=== PATIENT | female | born 1945 | race Caucasian/White ===

== ENCOUNTER 2016-03-29 19:28 | Observation (INO) | payer MEDICARE, OTHER ==
[2016-03-29] VITALS (7 sets, daily range): BP systolic 121–222; BP diastolic 66–121; PULSE 54–85; RESP 16–18; TEMP 98.8; O2SAT 97–100
[~2016-03-29] VITALS: Ht 167.6 cm; Wt 78.9 kg
[~2016-03-29 19:28] MED LIST: ASPI81 PO; CARD120T4 PO; CLOP75 PO; DIOV80TA4 PO; HYDR-2768 PO; PREM0.622 PO; PREV30CA36 PO; SERT50 PO; ZOCO40TA PO
[2016-03-29] MEDS ORDERED: ASPI1TAB69 PO (19:57)
[2016-03-29] MEDS ORDERED: CART300C PO (19:57)
[2016-03-29] MEDS ORDERED: ZOLO100T PO (19:58)
[2016-03-29] MEDS ORDERED: ESTR.625 PO (19:58)
[2016-03-29] MEDS ORDERED: ZOCO40TA PO (19:58)
[2016-03-29] MEDS ORDERED: TELM1TAB2 PO (19:58)
[2016-03-29] MEDS ORDERED: ALUMINUM/MAGNESIUM/SIMETH 30 ML CUP PO ONE (20:15)
[2016-03-29] MEDS ORDERED: cloNIDine HCL 0.2 MG TAB PO ONE (20:15)
[2016-03-29] MEDS ORDERED: LIDOCAINE VISCOUS 2% SOLN 15 ML UDC PO ONE (20:15)
[2016-03-29] MEDS ORDERED: FAMOTIDINE 20 MG/2 ML VIAL IV PUSH ONE (20:15)
[2016-03-29 20:43] LABS: AUTOMATED NEUTROPHIL # 4.5 TH/MM3 (1.8-7.7); BASOPHIL # 0.1 TH/MM3 (0-0.2); BASOPHIL % 1.6 % (0.0-2.0); EOSINOPHIL # 0.2 TH/MM3 (0-0.4); EOSINOPHIL % 2.3 % (0.0-4.0); HEMATOCRIT 39.5 % (35.0-46.0); HEMO FLAGS DIFF FINAL; LYMPH % 25.8 % (9.0-44.0); LYMPHOCYTE # 1.8 TH/MM3 (1.0-4.8); MEAN CELL VOLUME 82.1 FL (80.0-100.0); MEAN CORPUSCULAR HEMOGLOBIN 26.5 PG (27.0-34.0); MEAN CORPUSCULAR HGB CONC 32.3 % (32.0-36.0); MONO % 6.4 % (0.0-8.0); NEUT % 63.9 % (16.0-70.0); PLATELET COUNT 268 TH/MM3 (150-450); RED BLOOD COUNT 4.82 MIL/MM3 (4.00-5.30); RED CELL DISTRIBUTION WIDTH 14.7 % (11.6-17.2); WHITE BLOOD COUNT 7.1 TH/MM3 (4.0-11.0)
[2016-03-29 20:44] LABS: CHLORIDE 105 MEQ/L (98-107); POTASSIUM 4.6 MEQ/L (3.5-5.1); SODIUM (NA) 141 MEQ/L (136-145)
[2016-03-29 20:48] LABS: ANION GAP 5 MEQ/L (5-15); BLOOD UREA NITROGEN 15 MG/DL (7-18)
[2016-03-29 20:51] LABS: ALT (GPT) 20 U/L (10-53); AST (GOT) 42 U/L (15-37); GLOMERULAR FILTRATION RATE 40 ML/MIN (>89)
[2016-03-29 20:52] LABS: TOTAL BILIRUBIN ADULT 0.5 MG/DL (0.2-1.0)
[2016-03-29 20:53] LABS: ALKALINE PHOSPHATASE 96 U/L (45-117)
[2016-03-29] MEDS ORDERED: TEMAZEPAM 15 MG CAP PO PRN (21:00)
[2016-03-29] MEDS ORDERED: ASPIRIN 81 MG CHEW TAB CHEW ONE (21:45)
--- NOTE | 2016-03-29 21:56 | PD ---
HPI Chief Complaint: Hypertension Time Seen by Provider: 19:56 Travel History International Travel<30 days: No Contact w/Intl Traveler<30days: No Traveled to known affect area: No History of Present Illness HPI Patient is a 70 year old female who comes in complaining of epigastric pain and high blood pressure. She says she has been feeling run down today, and has had a nagging feeling in her epigastric area for most of the day. She says it has, in gone all day. She denies any shortness of breath. She says she missed her blood pressure medication this morning, but she took it at 6:30 PM. She has been taking it throughout the day and noticed it has been very elevated. She was concerned and worried about having a stroke so she came in. She denies fever or chills. No nausea, but no vomiting. PFSH Past Medical History Arthritis: Yes (LEFT HIP) Depression: Yes Cardiac Catheterization: Yes (W/ stent placement) High Cholesterol: Yes Coronary Artery Disease: Yes Hypertension: Yes Thyroid Disease: Yes ("THEY'RE WATCHING IT" STATED 03/29/16) Tetanus Vaccination: Unknown Influenza Vaccination: Yes ?: Not Menopausal: Yes : 3 Para: 3 Tubal Ligation: Yes Past Surgical History Coronary Stent: Yes (X1) Hysterectomy: Yes Other Surgery: Yes (LEFT CAROTID ENDARDARECTOMY: 2015) Family History Family Myocardial Infarction: Yes (4 BROTHERS: ) Social History Alcohol Use: No Tobacco Use: No (QUIT AGE 50) Substance Use: No Allergies-Medications (Allergen,Severity, Reaction): Coded Allergies: Sulfa (Verified Allergy, Severe, 03/29/16) Reported Meds & Prescriptions Reported Meds & Active Scripts Active Reported Telmisartan 80 Mg Tab 80 Mg PO DAILY Zocor (Simvastatin) 40 Mg Tab 40 Mg PO DAILY Zoloft (Sertraline HCl) 100 Mg Tab 100 Mg PO DAILY Premarin (Estrogens Conjugated) 0.625 Mg Tab 0.625 Mg PO DAILY Cartia Xt (Diltiazem ER 24 HR) 300 Mg Caper 300 Mg PO DAILY Aspirin 81 Mg Tabdr 81 Mg PO DAILY Review of Systems Except as stated in HPI: all other systems reviewed are Neg General / Constitutional: No: Fever, Chills Eyes: No: Blurred Vision HENT: No: Headaches, Lightheadedness Cardiovascular: Positive: Chest Pain or Discomfort Respiratory: No: Shortness of Breath Gastrointestinal: Positive: Nausea, Abdominal Pain, No: Vomiting Musculoskeletal: No: Edema, Pain Skin: No Rash, No Change in Pigmentation Neurologic: No: Weakness, Dizziness Physical Exam Narrative GENERAL: Awake and alert, in no acute distress. SKIN: Warm and dry. HEAD: Atraumatic. Normocephalic. EYES: Pupils equal and round. No scleral icterus. ENT: Mucous membranes pink and moist. NECK: Trachea midline. No JVD. CARDIOVASCULAR: Regular rate and rhythm. No murmur appreciated. RESPIRATORY: No accessory muscle use. Clear to auscultation. Breath sounds equal bilaterally. GASTROINTESTINAL: Abdomen soft, nondistended. Minimally tender to the epigastric area. MUSCULOSKELETAL: No obvious deformities. No clubbing. No cyanosis. No edema. NEUROLOGICAL: Awake and alert. No obvious cranial nerve deficits. Motor grossly within normal limits. Normal speech. PSYCHIATRIC: Appropriate mood and affect; insight and judgment normal. Data Data Last Documented VS Vital Signs Date Time Temp Pulse Resp B/P Pulse Ox O2 Delivery O2 Flow Rate FiO2 03/29/16 21:40 82 16 121/66 97 Room Air 03/29/16 19:44 98.8 Orders Complete Blood Count With Diff (03/29/16 20:07) Comprehensive Metabolic Panel (03/29/16 20:07) Troponin I (03/29/16 20:07) Lipase (03/29/16 20:07) Electrocardiogram (03/29/16 ) Famotidine Inj (Pepcid Inj) (03/29/16 20:15) Al-Mag Hy-Si 40-40-4 Mg/Ml Liq (Mag-Al P (03/29/16 20:15) Lidocaine 2% Viscous (Xylocaine 2% Visco (03/29/16 20:15) Clonidine (Catapres) (03/29/16 20:15) Aspirin Chew (Aspirin Chew) (03/29/16 21:45) Admit Order (Ed Use Only) (03/29/16 ) Labs Laboratory Tests Test 03/29/16 20:25 White Blood Count 7.1 TH/MM3 Red Blood Count 4.82 MIL/MM3 Hemoglobin 12.8 GM/DL Hematocrit 39.5 % Mean Corpuscular Volume 82.1 FL Mean Corpuscular Hemoglobin 26.5 PG Mean Corpuscular Hemoglobin 32.3 % Concent Red Cell Distribution Width 14.7 % Platelet Count 268 TH/MM3 Mean Platelet Volume 8.6 FL Neutrophils (%) (Auto) 63.9 % Lymphocytes (%) (Auto) 25.8 % Monocytes (%) (Auto) 6.4 % Eosinophils (%) (Auto) 2.3 % Basophils (%) (Auto) 1.6 % Neutrophils # (Auto) 4.5 TH/MM3 Lymphocytes # (Auto) 1.8 TH/MM3 Monocytes # (Auto) 0.5 TH/MM3 Eosinophils # (Auto) 0.2 TH/MM3 Basophils # (Auto) 0.1 TH/MM3 CBC Comment DIFF FINAL Differential Comment Sodium Level 141 MEQ/L Potassium Level 4.6 MEQ/L Chloride Level 105 MEQ/L Carbon Dioxide Level 31.0 MEQ/L Anion Gap 5 MEQ/L Blood Urea Nitrogen 15 MG/DL Creatinine 1.30 MG/DL Estimat Glomerular Filtration 40 ML/MIN Rate Random Glucose 87 MG/DL Calcium Level 8.7 MG/DL Total Bilirubin 0.5 MG/DL Aspartate Amino Transf 42 U/L (AST/SGOT) Alanine Aminotransferase 20 U/L (ALT/SGPT) Alkaline Phosphatase 96 U/L Troponin I 0.03 NG/ML Total Protein 7.4 GM/DL Albumin 3.1 GM/DL Lipase 135 U/L [facility] Medical Decision Making Medical Screen Exam Complete: Yes Emergency Medical Condition: Yes Medical Record Reviewed: Yes Interpretation(s) ECG shows normal sinus rhythm at [address] depressions in lead V5 and lead 2. Differential Diagnosis ACS vs NSTEMI vs STEMI vs hypertensive urgency vs hypertensive emergency Narrative Course Patient is a 70-year-old female comes in complaining of blood pressure and epigastric pain. Exam shows very minimal epigastric tenderness on palpation. IV established, patient connected to nurse monitoring. ECG performed shows no ST elevation, there is nonspecific ST depressions into noncontiguous leads. Labs sent show no acute abnormalities. Patient given GI cocktail as well as aspirin. She says originally the pain did improve, but now it is coming back. She had a blood pressure of 222/121 when she arrived. She was given clonidine with improvement of her blood pressure. I spoke with Dr. Melendez of cardiology, who suggests patient could benefit from an ACS rule out. Patient placed in observation for further management. Diagnosis Primary Impression: ACS (acute coronary syndrome) Additional Impression: Hypertensive urgency Admitting Information Admitting Physician Requests: Observation Carla Correia MD Mar 29, 2016 21:56
--- NOTE | 2016-03-29 22:37 | HHI.HP ---
HPI Service [facility] Hospitalists Primary Care Physician Maco Lynch MD Admission Diagnosis ACS Chief Complaint: upper abdominal discomfort today with elevated blood pressure Travel History International Travel<30 Days: No Contact w/Intl Traveler <30 Da: No Traveled to Known Affected Are: No History of Present Illness Patient is a 70 year old female who comes in complaining of epigastric pain and high blood pressure. She says she has been feeling run down today, and has had a nagging feeling in her epigastric area for most of the day. She says it has, in gone all day. She denies any shortness of breath. She says she missed her blood pressure medication this morning, but she took it at 6:30 PM. She has been taking it throughout the day and noticed it has been very elevated. She was concerned and worried about having a stroke so she came in. She denies fever or chills. No nausea, but no vomiting. In ER had EKG showed some ST depression V5 and lead 2 ,patient was given GI cocktail and clonidine which did improve her blood pressure . Cardiology was called as patient does have cardiac history and they suggest admit to observation and r/o cardiac problem with enzymes and EKG. Review of Systems Gastrointestinal: COMPLAINS OF: Abdominal pain Past Family Social History Past Medical History djd,depression,cath with stent,cad,thyroid ,hypertension Past Surgical History stent,hysterectomy,left carotid surgery Reported Medications telmisartan 80,zocor 40,zoloft 100,premarin .625,cardia xt 300 asa 81 Allergies: Coded Allergies: Sulfa (Verified Allergy, Severe, 03/29/16) Family History 4 brothers cad Social History former smoker Physical Exam Vital Signs Vital Signs Date Time Temp Pulse Resp B/P Pulse Ox O2 Delivery O2 Flow Rate FiO2 03/29/16 21:40 82 16 121/66 97 Room Air 03/29/16 21:15 168/80 03/29/16 21:04 64 186/83 97 Room Air 03/29/16 20:42 73 16 217/89 98 Room Air 03/29/16 20:02 82 Room Air 03/29/16 20:00 84 222/121 100 Room Air 220/93 03/29/16 19:44 98.8 85 18 198/102 97 Physical Exam GENERAL: This is a well-nourished, well-developed patient, in no apparent distress. SKIN: No rashes, ecchymoses or lesions. Cool and dry. HEAD: Atraumatic. Normocephalic. No temporal or scalp tenderness. EYES: Pupils equal round and reactive. Extraocular motions intact. No scleral icterus. No injection or drainage. ENT: Nose without bleeding, purulent drainage or septal hematoma. Throat without erythema, tonsillar hypertrophy or exudate. Uvula midline. Airway patent. NECK: Trachea midline. No JVD or lymphadenopathy. Supple, nontender, no meningeal signs. CARDIOVASCULAR: Regular rate and rhythm without murmurs, gallops, or rubs. RESPIRATORY: Clear to auscultation. Breath sounds equal bilaterally. No wheezes , rales, or rhonchi. GASTROINTESTINAL: Abdomen soft, non-tender, nondistended. No hepato-splenomegaly , or palpable masses. No guarding. MUSCULOSKELETAL: Extremities without clubbing, cyanosis, or edema. No joint tenderness, effusion, or edema noted. No calf tenderness. Negative Homans sign bilaterally. NEUROLOGICAL: Awake and alert. Cranial nerves II through XII intact. Motor and sensory grossly within normal limits. Five out of 5 muscle strength in all muscle groups. Normal speech. Laboratory Laboratory Tests Test 03/29/16 20:25 White Blood Count 7.1 Red Blood Count 4.82 Hemoglobin 12.8 Hematocrit 39.5 Mean Corpuscular Volume 82.1 Mean Corpuscular Hemoglobin 26.5 Mean Corpuscular Hemoglobin 32.3 Concent Red Cell Distribution Width 14.7 Platelet Count 268 Mean Platelet Volume 8.6 Neutrophils (%) (Auto) 63.9 Lymphocytes (%) (Auto) 25.8 Monocytes (%) (Auto) 6.4 Eosinophils (%) (Auto) 2.3 Basophils (%) (Auto) 1.6 Neutrophils # (Auto) 4.5 Lymphocytes # (Auto) 1.8 Monocytes # (Auto) 0.5 Eosinophils # (Auto) 0.2 Basophils # (Auto) 0.1 CBC Comment DIFF FINAL Differential Comment Sodium Level 141 Potassium Level 4.6 Chloride Level 105 Carbon Dioxide Level 31.0 Anion Gap 5 Blood Urea Nitrogen 15 Creatinine 1.30 Estimat Glomerular Filtration 40 Rate Random Glucose 87 Calcium Level 8.7 Total Bilirubin 0.5 Aspartate Amino Transf 42 (AST/SGOT) Alanine Aminotransferase 20 (ALT/SGPT) Alkaline Phosphatase 96 Troponin I 0.03 Total Protein 7.4 Albumin 3.1 Lipase 135 Result Diagram: 03/29/16202403/29/162024 Imaging ekg nsr st depression v5 and lead 2 Course given GI cocktail and clonidine Assessment and Plan Problem List: (1) ACS (acute coronary syndrome) Status: Acute Plan: initial set enzymes and ekg negative will recheck symptoms atypical for cardiac (2) Hypertensive urgency Status: Acute Plan: probably related to miss timing of taking her blood pressure pills will monitor and use clonidine prn (3) Abdominal pain Status: Acute Plan: start on zantac tonight and if necessary can follow up symptoms as outpatient Assessment and Plan as above Code Status full Discussed Condition With patient Maco Lynch MD Mar 29, 2016 22:37
[2016-03-29] MEDS ORDERED: NITROGLYCERIN 0.4 MG SL 25 TABS/BTL SL PRN (22:45)
[2016-03-29] MEDS ORDERED: ACETAMINOPHEN 500 MG CPLT PO PRN (22:45)
[2016-03-29] MEDS ORDERED: SODIUM CHLORIDE 0.9% FLUSH 5 ML FLUSH IV PRN (22:45)
[2016-03-29] MEDS ORDERED: cloNIDine HCL 0.1 MG TAB PO PRN (22:45)
[2016-03-29] MEDS ORDERED: ENOXAPARIN SODIUM 40 MG/0.4 ML SYRINGE SQ SCH (23:00)
--- NOTE | 2016-03-30 00:07 | RADHPO ---
EXAM DATE/TIME: 03/29/2016 23:00 [facility] COMPARISON: No previous studies available for comparison. INDICATIONS : Chest pain. MEDICAL HISTORY : None. SURGICAL HISTORY : None. ENCOUNTER: Initial ACUITY: 1 day PAIN SCORE: 02/19 LOCATION: Bilateral chest FINDINGS: The cardiac silhouette is enlarged in transverse diameter. The lungs are free of acute parenchymal op acity. No effusions are identified. There is prominence of the aortic knob is with calcification valery acteristic of atherosclerotic vascular disease. There is a 10 mm nodule in the right upper lobe. Sonya gnancy is not excluded. CT scan is recommended for further evaluation if clinically indicated. This c an be performed on an elective basis. CONCLUSION: 1. No acute cardiopulmonary disease. 2. 10 mm right upper lobe nodule. CT scan is recommended for further evaluation if clinically indicat ed. 1. Gee Chilel MD on March 30, 2016 at 0:05 Board Certified Radiologist. This report was verified electronically.
[2016-03-30 00:27] VITALS: BP 124/62; PULSE 54; RESP 20; TEMP 97.2; O2SAT 96
[2016-03-30 04:27] VITALS: BP 151/74; PULSE 55; RESP 14; TEMP 97.2; O2SAT 98
[2016-03-30 08:59] VITALS: BP 156/76; PULSE 50; RESP 16; TEMP 96.5; O2SAT 100
[2016-03-30] MEDS ORDERED: ESTROGENS CONJUGATED 0.625 MG TAB PO SCH (09:00)
[2016-03-30] MEDS ORDERED: DILTIAZEM-CD 300 MG CAP ER PO SCH (09:00)
[2016-03-30] MEDS ORDERED: SERTRALINE HCL 100 MG TAB PO SCH (09:00)
[2016-03-30] MEDS ORDERED: SODIUM CHLORIDE 0.9% FLUSH 5 ML FLUSH IV SCH (09:00)
[2016-03-30] MEDS ORDERED: FAMOTIDINE 20 MG TAB PO SCH ×2 (09:00→21:00)
[2016-03-30] MEDS ORDERED: NON-FORMULARY DRUG (Simvastatin (Zocor) 40 MG) PO SCH (09:00)
[2016-03-30] MEDS ORDERED: PRAVASTATIN SOD 40 MG TAB PO SCH (09:00)
[2016-03-30] MEDS ORDERED: LOSARTAN 50 MG TAB PO SCH (09:00)
[2016-03-30] MEDS ORDERED: ASPIRIN EC 81 MG TABEC PO SCH (09:00)
--- NOTE | 2016-03-30 11:18 | HHI.DS ---
Discharge Summary Admission Date Mar 29, 2016 at 21:57 Admitting Diagnosis ACS (1) ACS (acute coronary syndrome) Diagnosis: Principal (2) Hypertensive urgency Diagnosis: Principal (3) Abdominal pain Diagnosis: Principal Brief History Patient is a 70 year old female who comes in complaining of epigastric pain and high blood pressure. She says she has been feeling run down today, and has had a nagging feeling in her epigastric area for most of the day. She says it has, in gone all day. She denies any shortness of breath. She says she missed her blood pressure medication this morning, but she took it at 6:30 PM. She has been taking it throughout the day and noticed it has been very elevated. She was concerned and worried about having a stroke so she came in. She denies fever or chills. No nausea, but no vomiting. In ER had EKG showed some ST depression V5 and lead 2 ,patient was given GI cocktail and clonidine which did improve her blood pressure . Cardiology was called as patient does have cardiac history and they suggest admit to observation and r/o cardiac problem with enzymes and EKG. CBC/BMP: 03/29/16202403/29/162024 Significant Findings Laboratory Tests Test 03/29/16 03/30/16 20:25 07:10 Mean Corpuscular Hemoglobin 26.5 PG (27.0-34.0) Creatinine 1.30 MG/DL (0.50-1.00) Estimat Glomerular Filtration 40 ML/MIN (>89) Rate Aspartate Amino Transf 42 U/L (15-37) (AST/SGOT) Albumin 3.1 GM/DL (3.4-5.0) Troponin I 0.11 NG/ML (0.02-0.05) PE at Discharge GENERAL: SKIN: Warm and dry. HEAD: Atraumatic. Normocephalic. EYES: Pupils equal and round. No scleral icterus. No injection or drainage. ENT: No nasal bleeding or discharge. Mucous membranes pink and moist. NECK: Trachea midline. No JVD. CARDIOVASCULAR: Regular rate and rhythm. RESPIRATORY: No accessory muscle use. Clear to auscultation. Breath sounds equal bilaterally. GASTROINTESTINAL: Abdomen soft, non-tender, nondistended. Hepatic and splenic margins not palpable. MUSCULOSKELETAL: Extremities without clubbing, cyanosis, or edema. No obvious deformities. NEUROLOGICAL: Awake and alert. No obvious cranial nerve deficits. Motor grossly within normal limits. Five out of 5 muscle strength in the arms and legs. Normal speech. PSYCHIATRIC: Appropriate mood and affect; insight and judgment normal. Hospital Course Patient admitted with atypical chest pain really upper abominal pain which resolved . Patient had non specific troponin elevation .11 but also had negative stress test in February . I believe the events that lead to observation was the patient not taking her regular scheduled blood pressure Meds normally in the am . I will see her in office Friday and decide if any further work up necessary. Chest Xray normal. Pt Condition on Discharge: Good Discharge Disposition: Discharge Home Discharge Instructions DIET: Follow Instructions for: Heart Healthy Diet Activities you can perform: Regular-No Restrictions Continued Medications: Aspirin (Aspirin) 81 Mg Tabdr 81 MG PO DAILY TAB Diltiazem ER 24 HR (Cartia Xt) 300 Mg Caper 300 MG PO DAILY #30 Ref 0 CAP Estrogens, Conjugated (Premarin) 0.625 Mg Tab 0.625 MG PO DAILY Estrogen Supplements #30 Ref 0 TAB Sertraline (Zoloft) 100 Mg Tab 100 MG PO DAILY #30 Ref 0 TAB Simvastatin (Zocor) 40 Mg Tab 40 MG PO DAILY Cholesterol Management #30 Ref 0 TAB Telmisartan (Telmisartan) 80 Mg Tab 80 MG PO DAILY Blood Pressure Management #30 Ref 0 TAB Additional Information follow up Friday Maco Lynch MD Mar 30, 2016 11:18
--- NOTE | 2016-03-30 15:21 | EKG ---
Date Performed: 03/29/2016 Time Performed: 20:35:32 PTAGE: 70 years EKG: Sinus arrhythmia ST junctional depression is nonspecific Compared to prior tracing no signi ficant change Borderline ECG PREVIOUS TRACING : 09/27/2000 06.13 DOCTOR: Francisco Garza Interpretating Date/Time 03/30/2016 15:21:12
--- NOTE | 2016-03-30 15:22 | EKG ---
Date Performed: 03/30/2016 Time Performed: 07:43:18 PTAGE: 70 years EKG: Sinus bradycardia. Within normal limits Compared to prior tracing no significant change Bor derline ECG PREVIOUS TRACING : 03/29/2016 20.35 DOCTOR: Francisco Garza Interpretating Date/Time 03/30/2016 15:21:39
== END 2016-03-30 13:05 | disposition home or self-care (01) ==
LOC: PHED 19:28 → PHEDA 21:57 → PH3A 22:23
PROVIDERS: ADMIT Internal Medicine; ATTEND Internal Medicine
DX: I24.9 Acute ischemic heart disease, unspecified (principal); R07.89 Other chest pain; I16.0 Hypertensive urgency; R10.13 Epigastric pain; R94.31 Abnormal electrocardiogram [ECG] [EKG]; E78.00 Pure hypercholesterolemia, unspecified
CPT/HCPCS: 71010; 80053; 83690; 84484; 85025; 93005; 96374; 99285; G0378; J1650

== ENCOUNTER 2016-05-23 06:24 | Day surgery (SDC) | payer MEDICARE ==
[~2016-05-23] VITALS: Ht 167.6 cm; Wt 77.3 kg
[2016-05-23] VITALS (9 sets, daily range): BP systolic 118–190; BP diastolic 66–83; PULSE 54–75; RESP 16–20; TEMP 97.7–98.3; O2SAT 92–97
[~2016-05-23 06:24] MED LIST changes: +ASPI1TAB69 PO; -ASPI81 PO; -CARD120T4 PO; +CART300C PO; -CLOP75 PO; -DIOV80TA4 PO; +ESTR.625 PO; -HYDR-2768 PO; -PREM0.622 PO; -PREV30CA36 PO; -SERT50 PO; +TELM1TAB2 PO; +ZOLO100T PO
[2016-05-23] MEDS ORDERED: SLEE25TA (06:56)
[2016-05-23] MEDS ORDERED: SODIUM CHLOR 0.9% 1000 ML IV SCH (07:00)
[2016-05-23 07:23] LABS: AUTOMATED NEUTROPHIL # 4.7 TH/MM3 (1.8-7.7); BASOPHIL # 0.1 TH/MM3 (0-0.2); BASOPHIL % 1.2 % (0.0-2.0); EOSINOPHIL # 0.2 TH/MM3 (0-0.4); EOSINOPHIL % 3.3 % (0.0-4.0); HEMATOCRIT 39.4 % (35.0-46.0); HEMO FLAGS DIFF FINAL; LYMPH % 18.6 % (9.0-44.0); LYMPHOCYTE # 1.2 TH/MM3 (1.0-4.8); MEAN CELL VOLUME 82.4 FL (80.0-100.0); MEAN CORPUSCULAR HEMOGLOBIN 27.7 PG (27.0-34.0); MEAN CORPUSCULAR HGB CONC 33.6 % (32.0-36.0); MONO % 5.9 % (0.0-8.0); PLATELET COUNT 254 TH/MM3 (150-450); RED BLOOD COUNT 4.78 MIL/MM3 (4.00-5.30); RED CELL DISTRIBUTION WIDTH 15.4 % (11.6-17.2); WHITE BLOOD COUNT 6.6 TH/MM3 (4.0-11.0)
[2016-05-23 07:33] LABS: PROTHROMBIN TIME - PATIENT 10.6 SEC (9.8-11.6)
[2016-05-23] MEDS ORDERED: LIDOCAINE 1%/EPINEPHrine 1:100,000 SOLN 20 ML VIAL ONE (07:43)
[2016-05-23] MEDS ORDERED: SODIUM BICARBONATE 8.4% INJ 50 ML ONE (07:44)
[2016-05-23] MEDS ORDERED: MIDAZOLAM HCL 5 MG/5 ML VIAL ONE (07:58)
[2016-05-23] MEDS ORDERED: fentaNYL CITRATE 250 MCG/5 ML AMP ONE (07:58)
--- NOTE | 2016-05-23 09:57 | RADRPT ---
EXAM DATE/TIME: 05/23/2016 08:12 [facility] COMPARISON: CHEST SINGLE AP, March 29, 2016, 23:00. INDICATIONS : Right lung mass. SEDATION TIME: 30 minutes BIOPSY SITE: Right lung MEDICATION(S): 1.) 3 mg midazolam (Versed) IV 2.) 100 mcg fentanyl (Sublimaze) IV DEVICE(S): 1.) 18 gauge Yang blunt needle 10cm 2.) 20 gauge Temno core biopsy needle 15cm MEDICAL HISTORY : None. SURGICAL HISTORY : None. ENCOUNTER: Initial ACUITY: 1 day PAIN SCORE: 0/10 LOCATION: Right chest A total of six core specimen(s) were obtained and sent to the laboratory for pathologic evaluation. PROCEDURE: 1. CT guided lung biopsy. 2. Conscious sedation with continuous EKG and oximetry monitoring. Prior to the procedure informed consent was obtained. The patient's prior chest CT and chest x-ray we re reviewed. Using automated exposure control and adjustment of the mA and/or kV according to patient size, radiation dose was kept as low as reasonably achievable to obtain optimal diagnostic quality i mages. The site was prepped in a sterile fashion. Full sterile technique was used, including cap, mask, caron rile gloves and gown and a large sterile sheet. Hand hygiene and 2% chlorhexidine and/or betadine/al cohol prep was utilized per protocol for cutaneous antisepsis. The skin and subcutaneous tissues wer e infiltrated with local anesthetic solution. With CT guidance the right upper lobe lung nodule was localized. Biopsy was performed using the presc ribed needle as above. Adequate hemostasis was obtained with compression at the puncture site. Follow-up CT scan reveals no pneumothorax. There is moderate perilesional hemorrhage. Conscious sedation was performed with the prescribed dosages and duration as above in the presence of an independent trained radiology nurse to assist in the monitoring of the patient. EKG and oximetry remained stable throughout the procedure. The patient tolerated the procedure well and there were no complications. The patient was sent to Radiology Outpatient Unit in stable condition. CONCLUSION: Uncomplicated CT guided biopsy of the right upper lobe pulmonary nodule. Oni Spears MD on May 23, 2016 at 9:54 Board Certified Radiologist. This report was verified electronically.
[2016-05-23] MEDS ORDERED: oxyCODONE/ACETAMINOPHEN 5 MG/325 MG TAB PO PRN (10:00)
--- NOTE | 2016-05-23 10:23 | RADRPT ---
EXAM DATE/TIME: 05/23/2016 09:55 [facility] COMPARISON: CHEST SINGLE AP, March 29, 2016, 23:00. INDICATIONS : Status post right lung biopsy. MEDICAL HISTORY : Hypertension. SURGICAL HISTORY : Carotid endarterectomy. Hysterectomy. ENCOUNTER: Subsequent ACUITY: 1 day PAIN SCORE: 0/10 LOCATION: chest FINDINGS: Upright portable expiratory view of the chest demonstrates a normal-sized cardiac silhouette. There i s airspace consolidation in the right upper lobe representing hemorrhage related to the recent lung n odule biopsy. No pneumothorax is visualized. CONCLUSION: No pneumothorax is visualized following recent right lung nodule biopsy. Pulmonary hemorrhage remains in the right upper lobe. Oni Spears MD on May 23, 2016 at 10:21 Board Certified Radiologist. This report was verified electronically.
--- NOTE | 2016-05-23 13:03 | RADRPT ---
EXAM DATE/TIME: 05/23/2016 11:58 [facility] COMPARISON: CT NEEDLE BIOPSY LUNG, RIGHT, May 23, 2016, 8:12. CHEST EXPIRATION ONLY, May 23, 2016, 9:55. INDICATIONS : Post lung biopsy. Evaluate for pneumothorax. MEDICAL HISTORY : None. SURGICAL HISTORY : None. ENCOUNTER: Subsequent ACUITY: 1 day PAIN SCORE: 2/10 LOCATION: Bilateral chest FINDINGS: A single AP portable expiratory view the chest was obtained and demonstrates no evidence of pneumotho rax. There is a mass like hazy opacity again noted in the right upper lobe. Atherosclerotic changes a re present in the aorta with calcification. The heart size is within normal limits. CONCLUSION: No evidence of pneumothorax status post lung biopsy. Melecio Prado MD on May 23, 2016 at 13:00 Board Certified Radiologist. This report was verified electronically.
== END 2016-05-23 13:25 | disposition home or self-care (01) ==
LOC: HRAD 06:24 → HRIP 06:28 → HRAD 13:25
PROVIDERS: ATTEND Internal Medicine
DX: R91.8 Other nonspecific abnormal finding of lung field (principal); Z87.891 Personal history of nicotine dependence; C34.91 Malignant neoplasm of unspecified part of right bronchus or lung; Z79.82 Long term (current) use of aspirin; Z79.899 Other long term (current) drug therapy
CPT/HCPCS: 32405; 71010; 77012; 85025; 85610; 85730; 88305; 88341; 88342; J2250; J3010

== ENCOUNTER 2016-08-12 11:51 | Inpatient (IN) | payer MEDICARE ==
[~2016-08-12] VITALS: Ht 167.6 cm; Wt 80.0 kg
[~2016-08-12 11:51] MED LIST changes: -AMIO200T PO; -AMOX500T PO; -ASPI-110 PO; -ASPI1TAB69 PO; -CLOB0.059 TOPICAL; -DOCU1CAP39 PO; -HYDR-3516 PO
[2016-08-12] MEDS ORDERED: ASPI-110 PO (12:20)
[2016-08-12] MEDS ORDERED: CLOB0.059 TOPICAL (12:22)
[2016-08-12] MEDS ORDERED: AMOX500T PO (12:23)
[2016-08-15] VITALS (16 sets, daily range): BP systolic 122–155; BP diastolic 52–66; PULSE 59–74; RESP 16–18; TEMP 97.3–98.8; O2SAT 94–99
[2016-08-15] MEDS ORDERED: SODIUM CHLORID 0.9% 500 ML IV PRN (05:45)
[2016-08-15] MEDS ORDERED: CHLORHEXIDINE GLUCONATE 2 % 1 PACK (2 CLOTHS) TOPICAL PRN (05:45)
[2016-08-15] MEDS ORDERED: METOPROLOL TARTRATE 25 MG TAB PO PRN (05:45)
[2016-08-15] MEDS ORDERED: INSULIN HUMAN REGULAR 1,000 UNITS/10 ML VIAL SQ PRN (05:45)
[2016-08-15] MEDS ORDERED: POVIDONE IODINE 5% (ANTISEPSIS KIT) 4 APPLICATIONS EACH NARE PRN (05:45)
[2016-08-15] MEDS ORDERED: LACTATED RINGER'S 1000 ML IV PRN (05:45)
[2016-08-15] MEDS ORDERED: ACETAMINOPHEN 1000 MG/100 ML VIAL IV ONE (06:56)
[2016-08-15] MEDS ORDERED: FAMOTIDINE 20 MG/2 ML VIAL ONE (06:57)
[2016-08-15] MEDS ORDERED: BUPIVACAINE LIPOSO PF 1.3% INJ 20 ML, DEXAMETHASONE INJ 4 MG in SODIUM CHLORIDE 0.9% IN... P-ARTICULR SCH (07:15)
[2016-08-15] MEDS ORDERED: ceFAZolin 2 GM PREMIX 50 ML ONE (07:39)
[2016-08-15] MEDS ORDERED: PROPOFOL 200 MG/20 ML AMP IV ONE (07:58)
[2016-08-15] MEDS ORDERED: ePHEDrine/NS 25 MG/5 ML SYR IV ONE (07:58)
[2016-08-15] MEDS ORDERED: LACTATED RINGER'S 1000 ML INJ 1,000 ML IV ONE (07:59)
[2016-08-15] MEDS ORDERED: NORMOSOL R INJ 1,000 ML IV ONE (07:59)
[2016-08-15] MEDS ORDERED: NEOSTIGMINE 3 MG/3 ML SYR IV ONE (07:59)
[2016-08-15] MEDS ORDERED: VECURONIUM BROMIDE 10 MG VIAL IV ONE (07:59)
[2016-08-15] MEDS ORDERED: ONDANSETRON HCL 4 MG/2 ML VIAL IV PUSH ONE (07:59)
[2016-08-15] MEDS ORDERED: SODIUM CHLORIDE 0.9% FLUSH 5 ML FLUSH IV FLUSH PRN (11:00)
[2016-08-15] MEDS ORDERED: DO NOT ADM ANY ANTICOAGULANT DRUGS PRN (11:00)
[2016-08-15] MEDS ORDERED: ONDANSETRON HCL 4 MG/2 ML VIAL IV PUSH PRN (11:00)
[2016-08-15] MEDS ORDERED: Post-op Orders (for Pharmacy) MISC OTHER ONE (11:00)
[2016-08-15] MEDS ORDERED: ACETAMINOPHEN 325 MG TAB PO PRN (11:00)
[2016-08-15] MEDS ORDERED: fentaNYL CITRATE 250 MCG/5 ML AMP ONE ×2 (11:34)
[2016-08-15] MEDS ORDERED: MIDAZOLAM HCL 2 MG/2 ML VIAL ONE (11:34)
[2016-08-15] MEDS ORDERED: *RESP: ALBUTEROL 2.5 MG/3 ML NEB (PRN) PERIprocedural Use ONLY NEB ONE (11:37)
[2016-08-15] MEDS ORDERED: SUGAMMADEX SODIUM 200 MG/2 ML VIAL IV PUSH ONE ×4 (11:46→11:47)
[2016-08-15] MEDS: ACETAMINOPHEN 1000 MG/100 ML VIAL IV SCH ×4 (12:00→23:30)
--- NOTE | 2016-08-15 12:02 | PD.OP ---
cc: Maco Lynch MD; Flores Roberts MD; Johny Vasquez MD Operative Report Date of Surgery: Aug 15, 2016 Preoperative Diagnosis: Postoperative Diagnosis: Procedure: 1. Right Posterolateral Muscle Sparing Thoracotomy 2. Right upper lobectomy 3. Mediastinal Lymph Node Dissection 4. Lysis of Adhesions 5. Intercostal Nerve Block . Surgeon: Flores Roberts Hair Worker(s): Deinlson Harmon Operation and Findings: PREOPERATIVE DIAGNOSIS 1. Right Upper Lobe Adenocarcinoma 2. COPD 3. CAD POSTOPERATIVE DIAGNOSIS same PROCEDURES 1. Right Posterolateral Muscle Sparing Thoracotomy 2. Right upper lobectomy 3. Mediastinal Lymph Node Dissection 4. Lysis of Adhesions 5. Intercostal Nerve Block SURGEON Flores Roberts MD MONOTYPIST Jen Harmon CSFA ANESTHESIA General endotracheal. EXPERIENCE PLANNING STRATEGIST GREGORY Potter MD OPERATIVE TIME Please see record. COMPLICATIONS None. INDICATION FOR PROCEDURE The patient is a 70 yo lady with RUL adenocarcinoma presenting for surgical resection of above pathology. DESCRIPTION OF PROCEDURE The patient was brought to the operating suite and placed in supine position. Following satisfactory induction of general double-lumen endotracheal anesthesia , the patient was placed in the left lateral decubitus position. The right chest and surrounding area was then prepped and draped in the usual sterile fashion. A standard muscle-sparing posterolateral thoracotomy was performed and the serratus anterior muscle spared. The pleural space was entered. Exploration of the chest revealed a large right upper lobe mass, adhesions involving the right upper lobe and the apical chest wall, severe Emphysema with diffuse blebs , and very inflamed tissue planes. The adhesions were divided sharply and the lung freed circumferentially. The inferior pulmonary ligament was divided. The pulmonary arterial supply to the right upper lobe was identified, dissected free and divided as was the pulmonary venous supply. The bronchus was then dissected free, clamped and the remaining lung was insufflated without any difficulty. Lymph node dissections of level 3, 4, 7, 8, 9, 10 and 11 were performed along with the course of this removal. Specimen was removed from the chest. Bronchial margin was confirmed to be histologically free of malignancy. At this point the closure was undertaken. A 28-Swedish chest tube was placed. Intercostal nerve block was performed at the level of the incision and 3 rib spaces above and below using Exparel with Decadron solution. The pericostal space was approximated with interrupted #1 Vicryl sutures in a pericostal fashion. The serratus fascia and Latissimus dorsi were closed with running 0- Vicryl and the remaining wounds closed with 3-0, and 4-0 Monocryl. The patient tolerated the procedure well and postoperatively went to the PACU in stable condition. Flores Roberts MD Aug 15, 2016 12:02
--- NOTE | 2016-08-15 12:14 | RADRPT ---
EXAM DATE/TIME: 08/15/2016 11:34 [facility] COMPARISON: CHEST PA & LAT, August 12, 2016, 13:21. CHEST SINGLE AP, March 29, 2016, 23:00. INDICATIONS : Post Thoracotomy. Post Central line placement. MEDICAL HISTORY : Carcinoma, lung. Cardiovascular disease. SURGICAL HISTORY : Coronary artery stent. ENCOUNTER: Subsequent ACUITY: 2 days PAIN SCORE: Non-responsive. LOCATION: Bilateral chest FINDINGS: Upright portable AP view the chest demonstrates a normal-sized cardiac silhouette. Right-sided centra l line tip is in the SVC. Large bore right chest tube is present with tip at the apex of the hemithor ax. There is a small right apical pneumothorax. Right hemidiaphragm is elevated. There are is a subtl e linear opacity at the left base. No pleural effusion is visualized. Bones and soft tissues demonstr ate no concerning abnormality. There is right chest wall soft tissue air. CONCLUSION: 1. Right chest tube is present and there is a small right apical pneumothorax. 2. No other acute finding is identified. Oni Spears MD on August 15, 2016 at 12:05 Board Certified Radiologist. This report was verified electronically.
[2016-08-15] MEDS ORDERED: *HYDROmorphone PF 1 MG VIAL PERIprocedural Use ONLY ONE (12:19)
[2016-08-15] MEDS ORDERED: ceFAZolin 1 GM PREMIX 50 ML IV SCH (16:00)
[2016-08-15] MEDS: RESP: ALBUTEROL 2.5 MG/3 ML NEB (SCH) NEB ×2 (16:06→21:21)
[2016-08-15] MEDS: CLOBETASOL 0.05% TOPICAL SCH (21:00)
[2016-08-15] MEDS: SODIUM CHLORIDE 0.9% FLUSH 5 ML FLUSH IV FLUSH SCH (21:00)
[2016-08-15] MEDS: PRAVASTATIN SOD 40 MG TAB PO SCH (21:04)
[2016-08-15] MEDS: DOCUSATE CALCIUM 240 MG CAP PO SCH (21:04)
[2016-08-15] MEDS: PANTOPRAZOLE SOD 40 MG DELAYED RELEASE TAB PO SCH (21:04)
[2016-08-15] MEDS: ACETAMINOPHEN/HYDROcodone 325 MG/5 MG TAB PO PRN (21:05)
[2016-08-16] VITALS (30 sets, daily range): BP systolic 127–187; BP diastolic 57–86; PULSE 69–156; RESP 16–22; TEMP 98.1–98.9; O2SAT 92–98
[2016-08-16] MEDS: ACETAMINOPHEN/HYDROcodone 325 MG/5 MG TAB PO PRN ×5 (00:03→21:09)
[2016-08-16] MEDS: RESP: ALBUTEROL 2.5 MG/3 ML NEB (SCH) NEB ×4 (03:42→19:52)
[2016-08-16] MEDS: ACETAMINOPHEN 1000 MG/100 ML VIAL IV SCH (05:00)
[2016-08-16 05:25] LABS: AUTOMATED NEUTROPHIL # 14.2 TH/MM3 (1.8-7.7); BASOPHIL % 0.1 % (0.0-2.0); HEMATOCRIT 31.9 % (35.0-46.0); HEMO FLAGS DIFF FINAL; LYMPH % 4.4 % (9.0-44.0); LYMPHOCYTE # 0.7 TH/MM3 (1.0-4.8); MEAN CELL VOLUME 81.9 FL (80.0-100.0); MEAN CORPUSCULAR HEMOGLOBIN 26.6 PG (27.0-34.0); MEAN CORPUSCULAR HGB CONC 32.5 % (32.0-36.0); MONO % 3.2 % (0.0-8.0); NEUT % 92.3 % (16.0-70.0); PLATELET COUNT 250 TH/MM3 (150-450); RED CELL DISTRIBUTION WIDTH 15.1 % (11.6-17.2); WHITE BLOOD COUNT 15.3 TH/MM3 (4.0-11.0)
[2016-08-16 05:49] LABS: BICARBONATE 26.2 MEQ/L (21.0-32.0); POTASSIUM 3.5 MEQ/L (3.5-5.1)
[2016-08-16] MEDS: CLOBETASOL 0.05% TOPICAL SCH ×2 (09:00→20:10)
[2016-08-16] MEDS: ESTROGENS CONJUGATED 0.625 MG TAB PO SCH (09:00)
[2016-08-16] MEDS: SODIUM CHLORIDE 0.9% FLUSH 5 ML FLUSH IV FLUSH SCH ×2 (09:00→20:09)
[2016-08-16] MEDS ORDERED: DILTIAZEM-CD 300 MG CAP ER PO SCH (09:00)
[2016-08-16] MEDS: SERTRALINE HCL 100 MG TAB PO SCH (09:07)
[2016-08-16] MEDS: ASPIRIN EC 81 MG TABEC PO SCH (09:07)
[2016-08-16] MEDS ORDERED: POTASSIUM CHLORIDE 25 MEQ EFFERVESCENT TAB PO ONE (10:30)
[2016-08-16] MEDS ORDERED: ALPRAZolam 0.25 MG TAB PO PRN (11:30)
[2016-08-16] MEDS: HYDROmorphone HCL PF 1 MG/ML VIAL IV PUSH PRN ×2 (13:02→22:19)
--- NOTE | 2016-08-16 14:44 | HHI.FF ---
Face to Face Verification Diagnosis: (1) right upper lobe adenocarcinoma (2) 1. Right Posterolateral Muscle Sparing Thoracotomy Home Health Nursing Order: Wound care and dressing changes Nursing assessment with vital signs Instructions: Incentive spirometry Q1 hr x 10, while awake, also use acapella device hourly whole awake Sternal Breast Bone Precautions: NO pushing or pulling, ( pt must use sternal pillow to support chest with all activities and with coughing ( takes up to 3 months breast bone to heal ) All females to wear sternal bra , launder as needed Daily incision care: ok to shower daily, no tub bath. Wash all incisions with liquid dial soap, clean wash cloth to each site, rinse and pat dry. Observe for any signs of infection, such as drainage which is dark yellow, roth, green or foul smelling. Immediately report to the surgeon any drainage from the chest incision, or legs, and for any abnormal drainage from the chest tube sites. Notify surgeon if any temp >101.5 degrees F. When specialty dressing removed/ or if you do not have one, continue to shower daily as above, then rinse and pat incision dry and paint with betadine daily x 5 days. Allow steri strips to fall off if you have any. Avoid lotions, creams, salves, oils, etc. for the first month Please see attached forms for additional instructions regarding post Open Heart specialty wound vacuum dressings. EDDIE or Prevena , Dressing to be removed by Nursing staff on ___08/22/16____ F/U appointment: as per [facility] instructions: PCP in 2 weeks, CV surgeon 2 weeks, Vb Developer 3-4 weeks For any questions regarding incisions/ dressing / meds / post op care or above Symptoms, Friday 8am-5pm Heart & Vascular Surgery Office ( Dr. Roberts & Dr. Baez), After Hours / Nights (5pm -8am) Weekends and Holidays Please call [facility] ([facility]) Charge Nurse I have seen patient Gillian Wright on 08/16/16. My clinical findings support the need for the requested home health care services because: Deconditioned w/ increased weakness I certify that my clinical findings support that this patient is homebound because: Post-op weakness Vicki Montenegro R. LACING OPERATOR Aug 16, 2016 14:44
--- NOTE | 2016-08-16 14:49 | PD.CAR.PN ---
CVT Progress Note CVT: POD #: 1 Subjective/Hospital Course: 70/ female hx of right upper lobe adenocarcinoma , COPD , CAD surgery : right postero lateral muscle sparing thoracotomy, right upper lobectomy 08/15 08/16 chest tube drained 110cc/ 12 hrs + intermittent air leak cxr small right apical ptx will leave chest tube in place, pt very anxious and painful , IV dilaudid prn and prn xanax added pulm toileting Objective: GENERAL: SKIN: Warm and dry. right postero lateral incisin intact HEAD: Normocephalic. EYES: No scleral icterus. No injection or drainage. NECK: Supple, trachea midline. No JVD or lymphadenopathy. CARDIOVASCULAR: Regular rate and rhythm without murmurs, gallops, or rubs. RESPIRATORY: Breath sounds equal bilaterally. No accessory muscle use. diminished right lower lobe , chest tube in place to water seal GASTROINTESTINAL: Abdomen soft, non-tender, nondistended. MUSCULOSKELETAL: No cyanosis, or edema. BACK: Nontender without obvious deformity. No CVA tenderness. Vital Signs Date Time Temp Pulse Resp B/P Pulse Ox O2 Delivery O2 Flow Rate FiO2 08/16/16 11:02 18 08/16/16 11:00 85 08/16/16 10:00 84 08/16/16 09:56 93 08/16/16 09:33 93 Nasal Cannula 2.00 08/16/16 09:00 92 08/16/16 08:00 80 08/16/16 07:00 77 08/16/16 07:00 Room Air 08/16/16 07:00 98.9 81 19 137/57 98 08/16/16 06:00 84 08/16/16 05:00 79 08/16/16 04:00 76 08/16/16 03:10 97 Nasal Cannula 2.00 08/16/16 03:10 98.1 83 16 127/62 97 08/16/16 03:00 73 08/16/16 02:00 71 08/16/16 01:00 72 08/16/16 00:00 69 08/15/16 23:20 97 Nasal Cannula 2.00 08/15/16 23:20 98.8 71 16 122/52 97 08/15/16 23:00 67 08/15/16 22:00 66 08/15/16 21:21 95 Nasal Cannula 2.00 08/15/16 21:00 62 08/15/16 20:00 68 08/15/16 19:30 98.8 68 16 129/60 99 Arterial Line 08/15/16 19:30 99 Nasal Cannula 2.00 08/15/16 19:00 74 08/15/16 18:11 16 08/15/16 18:04 72 08/15/16 17:29 65 08/15/16 16:30 63 08/15/16 16:10 98 Nasal Cannula 2.00 08/15/16 15:22 98.6 63 16 122/58 97 08/15/16 15:22 59 Labs: Laboratory Tests Test 08/16/16 05:00 White Blood Count 15.3 TH/MM3 (4.0-11.0) Red Blood Count 3.90 MIL/MM3 (4.00-5.30) Hemoglobin 10.4 GM/DL (11.6-15.3) Hematocrit 31.9 % (35.0-46.0) Mean Corpuscular Volume 81.9 FL (80.0-100.0) Mean Corpuscular Hemoglobin 26.6 PG (27.0-34.0) Mean Corpuscular Hemoglobin 32.5 % Concent (32.0-36.0) Red Cell Distribution Width 15.1 % (11.6-17.2) Platelet Count 250 TH/MM3 (150-450) Mean Platelet Volume 8.2 FL (7.0-11.0) Neutrophils (%) (Auto) 92.3 % (16.0-70.0) Lymphocytes (%) (Auto) 4.4 % (9.0-44.0) Monocytes (%) (Auto) 3.2 % (0.0-8.0) Eosinophils (%) (Auto) 0.0 % (0.0-4.0) Basophils (%) (Auto) 0.1 % (0.0-2.0) Neutrophils # (Auto) 14.2 TH/MM3 (1.8-7.7) Lymphocytes # (Auto) 0.7 TH/MM3 (1.0-4.8) Monocytes # (Auto) 0.5 TH/MM3 (0-0.9) Eosinophils # (Auto) 0.0 TH/MM3 (0-0.4) Basophils # (Auto) 0.0 TH/MM3 (0-0.2) CBC Comment DIFF FINAL Differential Comment Sodium Level 136 MEQ/L (136-145) Potassium Level 3.5 MEQ/L (3.5-5.1) Chloride Level 102 MEQ/L (98-107) Carbon Dioxide Level 26.2 MEQ/L (21.0-32.0) Anion Gap 8 MEQ/L (5-15) Blood Urea Nitrogen 22 MG/DL (7-18) Creatinine 1.54 MG/DL (0.50-1.00) Estimat Glomerular Filtration 33 ML/MIN (>89) Rate Random Glucose 164 MG/DL (74-106) Calcium Level 8.3 MG/DL (8.5-10.1) Result Diagram: 08/16/16 0500 08/16/16 0500 Telemetry: NSR (1) right upper lobe adenocarcinoma (2) 1. Right Posterolateral Muscle Sparing Thoracotomy Plan: pain control OOB ambulate pulm toileting CM to eval for HHC leave chest tube in place Vicki Montenegro Aug 16, 2016 14:49
[2016-08-16] MEDS ORDERED: DILTIAZEM INJ 125 MG in SODIUM CHLORIDE 0.9% INJ 100 ML IV SCH (15:45)
[2016-08-16] MEDS ORDERED: DILTIAZEM HCL 25 MG/5 ML VIAL IVP ONE (16:00)
[2016-08-16 16:59] LABS: MAGNESIUM 1.9 MG/DL (1.5-2.5)
[2016-08-16] MEDS ORDERED: FUROSEMIDE 40 MG/4 ML VIAL IV PUSH ONE (20:00)
[2016-08-16] MEDS: DOCUSATE CALCIUM 240 MG CAP PO SCH (20:09)
[2016-08-16] MEDS: PRAVASTATIN SOD 40 MG TAB PO SCH (20:09)
[2016-08-16] MEDS: PANTOPRAZOLE SOD 40 MG DELAYED RELEASE TAB PO SCH (20:09)
[2016-08-17] VITALS (30 sets, daily range): BP systolic 125–135; BP diastolic 55–79; PULSE 60–160; RESP 18–24; TEMP 98–98.6; O2SAT 91–98
[2016-08-17] MEDS: ACETAMINOPHEN/HYDROcodone 325 MG/5 MG TAB PO PRN ×4 (02:38→20:26)
[2016-08-17] MEDS: HYDROmorphone HCL PF 1 MG/ML VIAL IV PUSH PRN ×2 (03:00→13:10)
[2016-08-17] MEDS: RESP: ALBUTEROL 2.5 MG/3 ML NEB (SCH) NEB ×4 (03:30→21:01)
--- NOTE | 2016-08-17 05:32 | RADRPT ---
EXAM DATE/TIME: 08/17/2016 04:19 [facility] COMPARISON: CHEST SINGLE AP, August 15, 2016, 11:34. INDICATIONS : Shortness of breath, possible pulmonary disease. MEDICAL HISTORY : Chronic obstructive pulmonary disease. Carcinoma, lung. Cardiovascular disease. CAD SURGICAL HISTORY : Lobectomy. Coronary artery stent. Thoracotomy ENCOUNTER: Subsequent ACUITY: 4 - 6 days PAIN SCORE: 3/10 LOCATION: Bilateral chest FINDINGS: A single view of the chest demonstrates stable volume loss in the right hemithorax with postsurgical changes in the right hilar region. Right-sided thoracostomy tube without pneumothorax. Left lung is c lear. Heart size is normal. Right subclavian central venous catheter with the tip projecting over the central venous system. Degenerative spurring in the dorsal spine. Osseous structures are otherwise i ntact. CONCLUSION: 1. Post surgical changes in the right hilar region with stable volume loss in the right hemithorax. 2. Stable position of right-sided thoracostomy tube without pneumothorax. Left lung remains clear. Maxime Paz MD on August 17, 2016 at 5:28 Board Certified Radiologist. This report was verified electronically.
--- NOTE | 2016-08-17 08:49 | PD.CAR.PN ---
CVT Progress Note Subjective/Hospital Course: 70/ female hx of right upper lobe adenocarcinoma , COPD , CAD surgery : right postero lateral muscle sparing thoracotomy, right upper lobectomy 08/15 08/16 chest tube drained 110cc/ 12 hrs + intermittent air leak cxr small right apical ptx will leave chest tube in place, pt very anxious and painful , IV dilaudid prn and prn xanax added pulm toileting 08/17 Doing well Weaning O2 as tolerated Discussed pathology findings of [id number] - Stage IIA Cancer Maintain CT to water seal. Re-evaluate in am Objective: Vital Signs Date Time Temp Pulse Resp B/P Pulse Ox O2 Delivery O2 Flow Rate FiO2 08/17/16 08:00 67 08/17/16 07:41 98.2 67 18 135/56 96 08/17/16 07:00 96 Nasal Cannula 3.00 08/17/16 07:00 67 08/17/16 06:00 64 08/17/16 05:00 66 08/17/16 04:03 70 08/17/16 03:33 96 Nasal Cannula 3.00 08/17/16 03:00 98.0 66 24 127/79 08/17/16 03:00 69 08/17/16 03:00 95 Nasal Cannula 3.00 08/17/16 02:26 125 08/17/16 02:00 72 08/17/16 01:00 76 08/17/16 00:00 77 08/16/16 23:10 98 Nasal Cannula 3.00 08/16/16 23:10 98.7 74 18 135/66 08/16/16 23:00 72 08/16/16 22:00 70 08/16/16 21:00 70 08/16/16 20:18 72 08/16/16 20:00 128 08/16/16 19:40 98.6 130 22 127/74 95 08/16/16 19:40 95 Nasal Cannula 3.00 08/16/16 19:00 129 08/16/16 18:00 135 08/16/16 18:00 96 Nasal Cannula 3.00 08/16/16 18:00 22 08/16/16 17:00 138 08/16/16 16:03 18 08/16/16 16:00 156 08/16/16 15:00 136 08/16/16 15:00 98.4 100 19 152/75 92 08/16/16 15:00 Room Air 08/16/16 14:00 94 08/16/16 13:00 96 08/16/16 12:00 100 08/16/16 11:02 18 08/16/16 11:00 96 Room Air 08/16/16 11:00 98.6 111 20 187/86 96 08/16/16 11:00 Room Air 08/16/16 11:00 85 08/16/16 10:00 84 08/16/16 09:56 93 08/16/16 09:33 93 Nasal Cannula 2.00 08/16/16 09:00 92 Result Diagram: 08/16/16 0500 08/16/16 0500 (1) right upper lobe adenocarcinoma (2) 1. Right Posterolateral Muscle Sparing Thoracotomy Plan: pain control OOB ambulate pulm toileting CM to eval for HHC leave chest tube in place Flores Roberts MD Aug 17, 2016 08:49
[2016-08-17] MEDS: CLOBETASOL 0.05% TOPICAL SCH ×2 (09:00→21:00)
[2016-08-17] MEDS: SODIUM CHLORIDE 0.9% FLUSH 5 ML FLUSH IV FLUSH SCH ×2 (09:00→20:24)
[2016-08-17] MEDS: ASPIRIN EC 81 MG TABEC PO SCH (09:32)
[2016-08-17] MEDS: ESTROGENS CONJUGATED 0.625 MG TAB PO SCH (09:32)
[2016-08-17] MEDS: SERTRALINE HCL 100 MG TAB PO SCH (09:32)
[2016-08-17] MEDS: DILTIAZEM-CD 300 MG CAP ER PO SCH (10:07)
[2016-08-17] MEDS: AMIODARONE 200 MG TAB PO SCH ×2 (14:09→22:03)
--- NOTE | 2016-08-17 16:42 | EKG ---
Date Performed: 08/16/2016 Time Performed: 15:26:46 PTAGE: 70 years EKG: Atrial fibrillation with rapid ventricular response. rSr'(V1) - probable normal variant Ext ensive ST-T changes are nonspecific Abnormal ECG PREVIOUS TRACING : 08/12/2016 12.11 Compared to the previous tracing, atrial fibrillation and S T/T wave changes are new DOCTOR: Andrea Melendez Interpretating Date/Time 08/17/2016 16:40:08
[2016-08-17] MEDS ORDERED: DILTIAZEM HCL 25 MG/5 ML VIAL IV PUSH STA (17:18)
[2016-08-17] MEDS: DILTIAZEM DRIP 125 MG in NS 125 ML PREMIX DELTONA ONLY IV SCH (17:49)
[2016-08-17] MEDS: MAGNESIUM SULFAT 1 GM PREMIX 100 ML x2 bags IV SCH ×2 (17:49→18:42)
[2016-08-17] MEDS: PRAVASTATIN SOD 40 MG TAB PO SCH (20:24)
[2016-08-17] MEDS: DOCUSATE CALCIUM 240 MG CAP PO SCH (20:24)
[2016-08-17] MEDS: PANTOPRAZOLE SOD 40 MG DELAYED RELEASE TAB PO SCH (20:24)
[2016-08-18] VITALS (28 sets, daily range): BP systolic 112–153; BP diastolic 54–71; PULSE 62–132; RESP 18–22; TEMP 98–98.8; O2SAT 94–98
[2016-08-18] MEDS: RESP: ALBUTEROL 2.5 MG/3 ML NEB (SCH) NEB ×4 (03:38→21:36)
[2016-08-18] MEDS: AMIODARONE 200 MG TAB PO SCH ×3 (05:38→21:08)
[2016-08-18] MEDS: ACETAMINOPHEN/HYDROcodone 325 MG/5 MG TAB PO PRN ×3 (07:32→21:14)
[2016-08-18] MEDS: DILTIAZEM-CD 300 MG CAP ER PO SCH (08:41)
[2016-08-18] MEDS: CLOBETASOL 0.05% TOPICAL SCH (08:42)
[2016-08-18] MEDS: SODIUM CHLORIDE 0.9% FLUSH 5 ML FLUSH IV FLUSH SCH ×2 (08:44→21:00)
[2016-08-18] MEDS: SERTRALINE HCL 100 MG TAB PO SCH (08:45)
[2016-08-18] MEDS: ESTROGENS CONJUGATED 0.625 MG TAB PO SCH (08:45)
[2016-08-18] MEDS: MAGNESIUM HYDROXIDE SUSP 30 ML CUP PO PRN (08:45)
[2016-08-18] MEDS: ASPIRIN EC 81 MG TABEC PO SCH (08:45)
--- NOTE | 2016-08-18 08:56 | PD.CAR.PN ---
CVT Progress Note Subjective/Hospital Course: 70/ female hx of right upper lobe adenocarcinoma , COPD , CAD surgery : right postero lateral muscle sparing thoracotomy, right upper lobectomy 08/15 08/16 chest tube drained 110cc/ 12 hrs + intermittent air leak cxr small right apical ptx will leave chest tube in place, pt very anxious and painful , IV dilaudid prn and prn xanax added pulm toileting 08/17 Doing well Weaning O2 as tolerated Discussed pathology findings of [id number] - Stage IIA Cancer Maintain CT to water seal. Re-evaluate in am 08/18 Doing well Back in a-fib this am. On Cardizem gtt and PO Amiodarone Will change from Cardizem to Digoxin Clamp CT. If CXR ok in am, will D/C CT Objective: Vital Signs Date Time Temp Pulse Resp B/P Pulse Ox O2 Delivery O2 Flow Rate FiO2 08/18/16 07:36 98.8 118 20 130/58 97 08/18/16 07:00 126 08/18/16 06:00 121 08/18/16 06:00 08/18/16 05:15 132 08/18/16 04:12 74 08/18/16 03:40 96 Nasal Cannula 2.00 08/18/16 03:00 98.1 71 18 145/54 94 08/18/16 03:00 67 08/18/16 02:00 66 08/18/16 01:00 71 08/18/16 00:26 98 Nasal Cannula 2.00 08/18/16 00:00 63 08/18/16 00:00 98.0 63 18 153/71 98 08/17/16 23:00 70 08/17/16 22:00 70 08/17/16 21:00 68 08/17/16 20:00 89 Nasal Cannula 2.00 08/17/16 20:00 98.4 69 20 132/62 95 08/17/16 20:00 63 08/17/16 19:00 69 08/17/16 18:00 108 08/17/16 17:00 134 08/17/16 16:00 160 08/17/16 15:50 93 Room Air 08/17/16 15:23 91 Nasal Cannula 2.00 08/17/16 15:01 98.6 101 18 130/78 93 08/17/16 15:00 140 08/17/16 14:00 126 08/17/16 13:00 120 08/17/16 12:00 68 08/17/16 11:00 98.1 67 20 125/55 93 08/17/16 11:00 67 08/17/16 11:00 93 Nasal Cannula 3.00 08/17/16 10:45 98 Nasal Cannula 2.00 08/17/16 10:00 66 08/17/16 09:00 60 Result Diagram: 08/16/16 0500 08/16/16 0500 (1) right upper lobe adenocarcinoma (2) 1. Right Posterolateral Muscle Sparing Thoracotomy Plan: pain control OOB ambulate pulm toileting CM to eval for HHC leave chest tube in place Flores Roberts MD Aug 18, 2016 08:56
[2016-08-18] MEDS ORDERED: DIGOXIN 0.5 MG/2 ML VIAL IV PUSH SCH ×2 (09:45→13:15)
[2016-08-18] MEDS: PRAVASTATIN SOD 40 MG TAB PO SCH (21:07)
[2016-08-18] MEDS: PANTOPRAZOLE SOD 40 MG DELAYED RELEASE TAB PO SCH (21:07)
[2016-08-18] MEDS: DOCUSATE CALCIUM 240 MG CAP PO SCH (21:07)
[2016-08-19] VITALS (27 sets, daily range): BP systolic 137–166; BP diastolic 62–89; PULSE 62–97; RESP 16–20; TEMP 98.2–98.8; O2SAT 93–96
[2016-08-19] MEDS: ACETAMINOPHEN/HYDROcodone 325 MG/5 MG TAB PO PRN ×4 (00:39→21:47)
[2016-08-19] MEDS: RESP: ALBUTEROL 2.5 MG/3 ML NEB (SCH) NEB ×2 (02:37→08:08)
[2016-08-19] MEDS: DILTIAZEM DRIP 125 MG in NS 125 ML PREMIX DELTONA ONLY IV SCH (04:55)
[2016-08-19] MEDS: AMIODARONE 200 MG TAB PO SCH ×3 (04:56→21:47)
--- NOTE | 2016-08-19 07:17 | RADRPT ---
EXAM DATE/TIME: 08/19/2016 04:58 [facility] COMPARISON: CHEST SINGLE AP, August 17, 2016, 4:19. INDICATIONS : Shortness of breath, possible pulmonary disease. MEDICAL HISTORY : Chronic obstructive pulmonary disease. Carcinoma, lung. Cardiovascular disease. CAD SURGICAL HISTORY : Lobectomy. Coronary artery stent. Thoracotomy ENCOUNTER: Subsequent ACUITY: 1 week PAIN SCORE: 3/10 LOCATION: Bilateral chest FINDINGS: Right subclavian central line has been removed. Right chest tube remains in place. Small right apical pneumothorax is identified. Partial right middle lobe collapse is identified. Left lung remains clear. CONCLUSION: Small right apical pneumothorax. Status post central line removal. Partial collapse right middle lobe. Branden Maxwell MD on August 19, 2016 at 7:14 Board Certified Radiologist. This report was verified electronically.
[2016-08-19] MEDS ORDERED: DILTIAZEM 125 MG/NS 100 ML IV SCH ×2 (08:45)
[2016-08-19] MEDS: ASPIRIN EC 81 MG TABEC PO SCH (08:57)
[2016-08-19] MEDS: SERTRALINE HCL 100 MG TAB PO SCH (08:57)
[2016-08-19] MEDS: ESTROGENS CONJUGATED 0.625 MG TAB PO SCH (08:57)
[2016-08-19] MEDS: DILTIAZEM-CD 300 MG CAP ER PO SCH (08:57)
[2016-08-19] MEDS: SODIUM CHLORIDE 0.9% FLUSH 5 ML FLUSH IV FLUSH SCH ×2 (09:00→20:04)
[2016-08-19] MEDS: CLOBETASOL 0.05% TOPICAL SCH ×2 (09:00→20:04)
[2016-08-19] MEDS: MAGNESIUM HYDROXIDE SUSP 30 ML CUP PO PRN (11:58)
[2016-08-19 13:45] LABS: BICARBONATE 30.3 MEQ/L (21.0-32.0); MAGNESIUM 2.3 MG/DL (1.5-2.5); POTASSIUM 3.9 MEQ/L (3.5-5.1)
[2016-08-19] MEDS: BISACODYL 10 MG SUPP RECTAL PRN (14:39)
--- NOTE | 2016-08-19 14:47 | PD.CAR.PN ---
CVT Progress Note Subjective/Hospital Course: 70/ female hx of right upper lobe adenocarcinoma , COPD , CAD surgery : right postero lateral muscle sparing thoracotomy, right upper lobectomy 08/15 08/16 chest tube drained 110cc/ 12 hrs + intermittent air leak cxr small right apical ptx will leave chest tube in place, pt very anxious and painful , IV dilaudid prn and prn xanax added pulm toileting 08/17 Doing well Weaning O2 as tolerated Discussed pathology findings of [id number] - Stage IIA Cancer Maintain CT to water seal. Re-evaluate in am 08/18 Doing well Back in a-fib this am. On Cardizem gtt and PO Amiodarone Will change from Cardizem to Digoxin Clamp CT. If CXR ok in am, will D/C CT 08/19 back in NSR phos and K+ replaced chest tube clamped overnight CXR noted, still has small intermittent air leak with cough small right apical PTX, volume loss right mid lobe chest tube unclamped and placed back to suction repeat cxr in am Objective: Vital Signs Date Time Temp Pulse Resp B/P Pulse Ox O2 Delivery O2 Flow Rate FiO2 08/19/16 14:04 74 08/19/16 13:06 72 08/19/16 12:04 74 08/19/16 11:10 67 08/19/16 11:00 98.5 97 18 150/72 96 08/19/16 11:00 92 08/19/16 11:00 Room Air Nasal Cannula 08/19/16 10:28 16 08/19/16 10:00 80 08/19/16 09:00 89 08/19/16 08:10 94 08/19/16 07:00 78 08/19/16 07:00 98.7 74 16 163/69 93 08/19/16 07:00 Room Air Nasal Cannula 08/19/16 07:00 72 08/19/16 06:05 64 08/19/16 05:00 64 08/19/16 04:00 98.7 62 20 137/62 96 08/19/16 04:00 62 08/19/16 03:23 95 Nasal Cannula 2.00 08/19/16 03:00 63 08/19/16 02:37 94 21 08/19/16 02:00 73 08/19/16 01:00 65 08/19/16 00:00 98.5 65 20 152/85 95 08/19/16 00:00 95 Nasal Cannula 2.00 08/19/16 00:00 70 08/18/16 23:00 68 08/18/16 22:00 76 08/18/16 21:00 104 08/18/16 20:00 98 Nasal Cannula 2.00 08/18/16 20:00 98.5 108 22 132/61 98 08/18/16 20:00 110 08/18/16 19:00 108 08/18/16 18:00 72 08/18/16 17:00 68 08/18/16 16:00 66 08/18/16 16:00 96 Room Air 08/18/16 15:04 97 Nasal Cannula 2.00 08/18/16 15:00 98.3 73 20 146/63 98 08/18/16 15:00 68 Labs: Laboratory Tests Test 08/19/16 12:18 Sodium Level 136 MEQ/L (136-145) Potassium Level 3.9 MEQ/L (3.5-5.1) Chloride Level 99 MEQ/L (98-107) Carbon Dioxide Level 30.3 MEQ/L (21.0-32.0) Anion Gap 7 MEQ/L (5-15) Blood Urea Nitrogen 19 MG/DL (7-18) Creatinine 1.24 MG/DL (0.50-1.00) Estimat Glomerular Filtration 43 ML/MIN (>89) Rate Random Glucose 105 MG/DL (74-106) Calcium Level 8.7 MG/DL (8.5-10.1) Phosphorus Level 1.8 MG/DL (2.5-4.9) Magnesium Level 2.3 MG/DL (1.5-2.5) Result Diagram: 08/16/16 0500 08/19/16 1218 Telemetry: NSR (1) right upper lobe adenocarcinoma (2) 1. Right Posterolateral Muscle Sparing Thoracotomy Plan: pain control OOB ambulate pulm toileting CM to eval for HHC leave chest tube in place / placed to suction path moderately differentiated adenocarcinoma , metastatic adenocarcinoma 1/2 lymph nodes pT2A (3) Afib Plan: on po cardizem and amiodarone Vicki Montenegro Aug 19, 2016 14:47
[2016-08-19] MEDS ORDERED: POTASSIUM CHLORIDE 20 MEQ CONTROLLED RELEASE TAB PO ONE (15:00)
[2016-08-19] MEDS: RESP: ALBUTEROL 2.5 MG/3 ML NEB (PRN) NEB ×2 (16:10→23:56)
[2016-08-19] MEDS: POTASSIUM PHOSPHATE MONOBASIC 500 MG TAB PO SCH ×2 (16:18→20:04)
[2016-08-19] MEDS: PANTOPRAZOLE SOD 40 MG DELAYED RELEASE TAB PO SCH (20:04)
[2016-08-19] MEDS: PRAVASTATIN SOD 40 MG TAB PO SCH (20:04)
[2016-08-19] MEDS: DOCUSATE CALCIUM 240 MG CAP PO SCH (20:04)
[2016-08-20] VITALS (26 sets, daily range): BP systolic 144–174; BP diastolic 69–76; PULSE 56–87; RESP 18–20; TEMP 97.7–99.1; O2SAT 96–100
[2016-08-20] MEDS: AMIODARONE 200 MG TAB PO SCH ×3 (05:31→20:25)
--- NOTE | 2016-08-20 06:30 | RADRPT ---
EXAM DATE/TIME: 08/20/2016 05:34 [facility] COMPARISON: CHEST SINGLE AP, August 19, 2016, 4:58. INDICATIONS : Short of breath. MEDICAL HISTORY : None. SURGICAL HISTORY : None. ENCOUNTER: Subsequent ACUITY: 1 week PAIN SCORE: 0/10 LOCATION: Bilateral chest FINDINGS: Right chest tube remains in place, tip at the apex. No pneumothorax seen. Mild bibasilar atelectasis unchanged. A small right pleural effusion is possible, also unchanged. Heart size stable, upper limits of normal. CONCLUSION: No significant change mild bibasilar atelectasis. Right chest tube remains in place. No pneumothorax. Oni Nolan MD on August 20, 2016 at 6:28 Board Certified Radiologist. This report was verified electronically.
[2016-08-20] MEDS: ACETAMINOPHEN/HYDROcodone 325 MG/5 MG TAB PO PRN ×3 (06:46→23:29)
[2016-08-20] MEDS: POTASSIUM PHOSPHATE MONOBASIC 500 MG TAB PO SCH ×2 (08:36→20:25)
[2016-08-20] MEDS: MAGNESIUM HYDROXIDE SUSP 30 ML CUP PO PRN (08:37)
[2016-08-20] MEDS: ESTROGENS CONJUGATED 0.625 MG TAB PO SCH (08:37)
[2016-08-20] MEDS: ASPIRIN EC 81 MG TABEC PO SCH (08:37)
[2016-08-20] MEDS: SODIUM CHLORIDE 0.9% FLUSH 5 ML FLUSH IV FLUSH SCH ×2 (08:38→20:25)
[2016-08-20] MEDS: DILTIAZEM-CD 180 MG CAP ER PO SCH (08:38)
[2016-08-20] MEDS: CLOBETASOL 0.05% TOPICAL SCH ×2 (09:00→20:25)
[2016-08-20] MEDS ORDERED: SOD PHOSPHATE/SOD BIPHOSPHATE (ADULT) ENEMA 133ML PR ONE (10:00)
--- NOTE | 2016-08-20 10:07 | PD.CAR.PN ---
CVT Progress Note Subjective/Hospital Course: 70/ female hx of right upper lobe adenocarcinoma , COPD , CAD surgery : right postero lateral muscle sparing thoracotomy, right upper lobectomy 08/15 08/16 chest tube drained 110cc/ 12 hrs + intermittent air leak cxr small right apical ptx will leave chest tube in place, pt very anxious and painful , IV dilaudid prn and prn xanax added pulm toileting 08/17 Doing well Weaning O2 as tolerated Discussed pathology findings of [id number] - Stage IIA Cancer Maintain CT to water seal. Re-evaluate in am 08/18 Doing well Back in a-fib this am. On Cardizem gtt and PO Amiodarone Will change from Cardizem to Digoxin Clamp CT. If CXR ok in am, will D/C CT 08/19 back in NSR phos and K+ replaced chest tube clamped overnight CXR noted, still has small intermittent air leak with cough small right apical PTX, volume loss right mid lobe chest tube unclamped and placed back to suction repeat cxr in am 08/20 chest xray no further PTX, no further air leak drained 450cc serous drainage no BM since surgery, will give additional ducolax supp and fleets enema Objective: GENERAL: SKIN: Warm and dry. incision intact right postero lateral chest wall HEAD: Normocephalic. EYES: No scleral icterus. No injection or drainage. NECK: Supple, trachea midline. No JVD or lymphadenopathy. CARDIOVASCULAR: Regular rate and rhythm without murmurs, gallops, or rubs. RESPIRATORY: Breath sounds equal bilaterally. No accessory muscle use. chest tube to wall suction, no further air leak GASTROINTESTINAL: Abdomen soft, non-tender, nondistended. MUSCULOSKELETAL: No cyanosis, or edema. BACK: Nontender without obvious deformity. No CVA tenderness. Vital Signs Date Time Temp Pulse Resp B/P Pulse Ox O2 Delivery O2 Flow Rate FiO2 08/20/16 07:00 97.7 67 19 174/76 100 08/20/16 07:00 64 08/20/16 07:00 Nasal Cannula 1.00 08/20/16 06:00 65 08/20/16 05:13 65 08/20/16 04:35 65 08/20/16 03:24 Room Air 3.00 21 08/20/16 03:00 74 08/20/16 03:00 99.1 70 163/74 97 08/20/16 02:11 65 08/20/16 01:00 70 08/20/16 00:47 Room Air 3.00 21 08/20/16 00:47 98.3 68 144/76 96 08/20/16 00:00 66 08/19/16 23:57 95 08/19/16 23:00 68 08/19/16 22:00 64 08/19/16 21:00 62 08/19/16 20:00 76 08/19/16 19:00 Room Air 08/19/16 19:00 67 08/19/16 19:00 98.8 71 151/84 96 08/19/16 18:29 71 08/19/16 17:15 84 08/19/16 17:15 3.00 08/19/16 16:06 88 08/19/16 15:00 73 08/19/16 15:00 98.2 73 16 166/89 96 08/19/16 14:04 74 08/19/16 13:06 72 08/19/16 12:04 74 08/19/16 11:10 67 08/19/16 11:00 98.5 97 18 150/72 96 08/19/16 11:00 92 08/19/16 11:00 Room Air Nasal Cannula 08/19/16 10:28 16 Result Diagram: 08/16/16 0500 08/19/16 1218 (1) right upper lobe adenocarcinoma (2) 1. Right Posterolateral Muscle Sparing Thoracotomy Plan: pain control OOB ambulate pulm toileting CM to eval for HHC leave chest tube in place /on suction path moderately differentiated adenocarcinoma , metastatic adenocarcinoma 1/2 lymph nodes pT2A (3) Afib Plan: on po cardizem increased and amiodarone (4) Constipation Plan: additional GI meds given Vicki Montenegro Aug 20, 2016 10:07
[2016-08-20] MEDS: SERTRALINE HCL 100 MG TAB PO SCH (10:23)
[2016-08-20] MEDS: BISACODYL 10 MG SUPP RECTAL PRN (10:26)
[2016-08-20] MEDS: DOCUSATE SODIUM 100 MG CAP PO SCH ×2 (10:26→20:24)
[2016-08-20] MEDS: PRAVASTATIN SOD 40 MG TAB PO SCH (20:25)
[2016-08-20] MEDS: PANTOPRAZOLE SOD 40 MG DELAYED RELEASE TAB PO SCH (20:25)
[2016-08-20] MEDS: RESP: ALBUTEROL 2.5 MG/3 ML NEB (PRN) NEB (23:27)
[2016-08-21] VITALS (28 sets, daily range): BP systolic 141–177; BP diastolic 65–76; PULSE 55–74; RESP 18–19; TEMP 97.8–98.7; O2SAT 94–100
[2016-08-21] MEDS: ACETAMINOPHEN/HYDROcodone 325 MG/5 MG TAB PO PRN ×4 (03:37→19:53)
[2016-08-21] MEDS: AMIODARONE 200 MG TAB PO SCH ×3 (05:36→20:36)
[2016-08-21 07:13] LABS: AUTOMATED NEUTROPHIL # 7.1 TH/MM3 (1.8-7.7); BASOPHIL % 0.2 % (0.0-2.0); EOSINOPHIL # 0.3 TH/MM3 (0-0.4); EOSINOPHIL % 3.6 % (0.0-4.0); HEMATOCRIT 34.4 % (35.0-46.0); HEMO FLAGS DIFF FINAL; LYMPH % 11.5 % (9.0-44.0); LYMPHOCYTE # 1.1 TH/MM3 (1.0-4.8); MEAN CELL VOLUME 82.9 FL (80.0-100.0); MEAN CORPUSCULAR HEMOGLOBIN 26.6 PG (27.0-34.0); MEAN CORPUSCULAR HGB CONC 32.1 % (32.0-36.0); MONO % 7.9 % (0.0-8.0); NEUT % 76.8 % (16.0-70.0); PLATELET COUNT 342 TH/MM3 (150-450); RED BLOOD COUNT 4.15 MIL/MM3 (4.00-5.30); RED CELL DISTRIBUTION WIDTH 15.3 % (11.6-17.2); WHITE BLOOD COUNT 9.2 TH/MM3 (4.0-11.0)
[2016-08-21 07:28] LABS: BICARBONATE 31.3 MEQ/L (21.0-32.0); MAGNESIUM 2.2 MG/DL (1.5-2.5); POTASSIUM 4.6 MEQ/L (3.5-5.1)
[2016-08-21] MEDS: ESTROGENS CONJUGATED 0.625 MG TAB PO SCH (08:38)
[2016-08-21] MEDS: DOCUSATE SODIUM 100 MG CAP PO SCH ×2 (08:38→20:36)
[2016-08-21] MEDS: POTASSIUM PHOSPHATE MONOBASIC 500 MG TAB PO SCH ×2 (08:38→20:36)
[2016-08-21] MEDS: ASPIRIN EC 81 MG TABEC PO SCH (08:39)
[2016-08-21] MEDS: SERTRALINE HCL 100 MG TAB PO SCH (08:39)
[2016-08-21] MEDS: DILTIAZEM-CD 180 MG CAP ER PO SCH (08:39)
[2016-08-21] MEDS: CLOBETASOL 0.05% TOPICAL SCH ×2 (08:40→20:40)
[2016-08-21] MEDS: SODIUM CHLORIDE 0.9% FLUSH 5 ML FLUSH IV FLUSH SCH ×2 (08:40→20:40)
[2016-08-21] MEDS ORDERED: HYDR-3516 PO (11:20)
[2016-08-21] MEDS ORDERED: DOCU1CAP39 PO (11:20)
[2016-08-21] MEDS ORDERED: AMIO200T PO (11:20)
--- NOTE | 2016-08-21 11:23 | HHI.DS ---
Discharge Summary Admission Date Aug 15, 2016 at 05:25 Admitting Diagnosis (1) right upper lobe adenocarcinoma Diagnosis: Principal Procedures Right Upper Lobectomy with Mediastinal Lymph Node Dissection CBC/BMP: 08/21/16 0612 08/21/16 0612 Significant Findings Laboratory Tests Test 08/19/16 08/21/16 12:18 06:12 Blood Urea Nitrogen 19 MG/DL (7-18) Creatinine 1.24 MG/DL 1.16 MG/DL (0.50-1.00) (0.50-1.00) Estimat Glomerular Filtration 43 ML/MIN (>89) 46 ML/MIN (>89) Rate Phosphorus Level 1.8 MG/DL (2.5-4.9) Hemoglobin 11.0 GM/DL (11.6-15.3) Hematocrit 34.4 % (35.0-46.0) Mean Corpuscular Hemoglobin 26.6 PG (27.0-34.0) Neutrophils (%) (Auto) 76.8 % (16.0-70.0) Random Glucose 109 MG/DL (74-106) Hospital Course 70/ female hx of right upper lobe adenocarcinoma , COPD , CAD surgery : right postero lateral muscle sparing thoracotomy, right upper lobectomy 08/15 08/16 chest tube drained 110cc/ 12 hrs + intermittent air leak cxr small right apical ptx will leave chest tube in place, pt very anxious and painful , IV dilaudid prn and prn xanax added pulm toileting 08/17 Doing well Weaning O2 as tolerated Discussed pathology findings of [id number] - Stage IIA Cancer Maintain CT to water seal. Re-evaluate in am 08/18 Doing well Back in a-fib this am. On Cardizem gtt and PO Amiodarone Will change from Cardizem to Digoxin Clamp CT. If CXR ok in am, will D/C CT 08/19 back in NSR phos and K+ replaced chest tube clamped overnight CXR noted, still has small intermittent air leak with cough small right apical PTX, volume loss right mid lobe chest tube unclamped and placed back to suction repeat cxr in am 08/20 chest xray no further PTX, no further air leak drained 450cc serous drainage no BM since surgery, will give additional Dulcolax supp and fleets enema 08/21 CT removed Discharge home Pt Condition on Discharge: Good Discharge Disposition: Disch w/ Home Health Serv Discharge Instructions DIET: Follow Instructions for: As Tolerated, No Restrictions Activities you can perform: Full Weight Bearing, Shower Only-No Bath Activities to avoid: Strenuous Activity, Bathing, Driving Follow up Referrals: Appointment for Follow Up Appointment for Follow Up Appointment for Follow Up New Medications: Amiodarone (Amiodarone) 200 Mg Tab 200 MG PO Q8HR z Days 14 TAB Docusate Sodium (Dok) 100 Mg Cap 100 MG PO BID Constipation Days 28 CAP Hydrocodone-Acetaminophen (Hydrocodone-Acetaminophen) 5-325 mg Tab 1 TAB PO Q6HR PRN PAIN SCALE 3 TO 5 #30 TAB Continued Medications: Aspirin DR (Aspirin 81) 81 Mg Tabdr 81 MG PO DAILY Ref 0 TAB Clobetasol Topical (Clobetasol Topical) 0.05% Soln 1 APPLIC TOPICAL BID #25 Ref 0 ML Diltiazem ER 24 HR (Cartia Xt) 300 Mg Caper 300 MG PO DAILY #30 Ref 0 CAP Doxylamine Succinate (Sleep) (Sleep Aid) 25 Mg Tab 50 HS PRN INSOMNIA Estrogens, Conjugated (Premarin) 0.625 Mg Tab 0.625 MG PO DAILY Estrogen Supplements #30 Ref 0 TAB Sertraline (Zoloft) 100 Mg Tab 100 MG PO DAILY #30 Ref 0 TAB Simvastatin (Zocor) 40 Mg Tab 20 MG PO DAILY Cholesterol Management #30 Ref 0 TAB Telmisartan (Telmisartan) 80 Mg Tab 80 MG PO DAILY Blood Pressure Management #30 Ref 0 TAB Flores Roberts MD Aug 21, 2016 11:23
--- NOTE | 2016-08-21 11:55 | RADRPT ---
EXAM DATE/TIME: 08/21/2016 10:57 [facility] COMPARISON: CHEST SINGLE AP, August 20, 2016, 5:34. INDICATIONS : Post chest tube removal on right side today. MEDICAL HISTORY : Hypertension. Carcinoma, lung. Coronary artery disease. Hiatal hernia. SURGICAL HISTORY : Cardiac cath. Coronary stent. Thoracotomy. ENCOUNTER: Subsequent ACUITY: 1 day PAIN SCORE: 0/10 LOCATION: Right chest FINDINGS: A single portable frontal view of the chest shows interval removal of the right thoracostomy tube wit h recurrence of a moderate size right pneumothorax. The pleural reflection is 2.5 cm from the lateral chest wall. Right basilar atelectasis. Heart is mildly enlarged. Left lung is clear. CONCLUSION: Recurrent pneumothorax following chest tube removal on the right. Renan Khan Jr., MD on August 21, 2016 at 11:40 Board Certified Radiologist. This report was verified electronically.
--- NOTE | 2016-08-21 13:56 | PD.CAR.PN ---
CVT Progress Note Subjective/Hospital Course: 70/ female hx of right upper lobe adenocarcinoma , COPD , CAD surgery : right postero lateral muscle sparing thoracotomy, right upper lobectomy 08/15 08/16 chest tube drained 110cc/ 12 hrs + intermittent air leak cxr small right apical ptx will leave chest tube in place, pt very anxious and painful , IV dilaudid prn and prn xanax added pulm toileting 08/17 Doing well Weaning O2 as tolerated Discussed pathology findings of [id number] - Stage IIA Cancer Maintain CT to water seal. Re-evaluate in am 08/18 Doing well Back in a-fib this am. On Cardizem gtt and PO Amiodarone Will change from Cardizem to Digoxin Clamp CT. If CXR ok in am, will D/C CT 08/19 back in NSR phos and K+ replaced chest tube clamped overnight CXR noted, still has small intermittent air leak with cough small right apical PTX, volume loss right mid lobe chest tube unclamped and placed back to suction repeat cxr in am 08/20 chest xray no further PTX, no further air leak drained 450cc serous drainage no BM since surgery, will give additional ducolax supp and fleets enema 08/21 chest tube removed without difficulty, no air leak prior to removal post cxr small to mod right apical PTX will keep pt here today, recheck CXR in am , if stable , possible dc home in am Objective: GENERAL: SKIN: Warm and dry. incision intact and well approximated right lateral chest wall HEAD: Normocephalic. EYES: No scleral icterus. No injection or drainage. NECK: Supple, trachea midline. No JVD or lymphadenopathy. CARDIOVASCULAR: Regular rate and rhythm without murmurs, gallops, or rubs. RESPIRATORY: Breath sounds equal bilaterally. No accessory muscle use.chest tube dc GASTROINTESTINAL: Abdomen soft, non-tender, nondistended. MUSCULOSKELETAL: No cyanosis, or edema. BACK: Nontender without obvious deformity. No CVA tenderness. Vital Signs Date Time Temp Pulse Resp B/P Pulse Ox O2 Delivery O2 Flow Rate FiO2 08/21/16 12:27 59 08/21/16 11:30 63 08/21/16 11:30 98.5 60 18 159/66 94 08/21/16 11:30 Room Air 08/21/16 10:00 64 08/21/16 09:00 70 08/21/16 08:00 66 08/21/16 07:30 Nasal Cannula 08/21/16 07:30 98.2 61 19 166/69 100 08/21/16 07:00 55 08/21/16 06:24 57 08/21/16 05:53 57 08/21/16 04:00 69 08/21/16 03:00 67 08/21/16 03:00 Nasal Cannula 2.00 21 08/21/16 03:00 97.8 66 160/76 97 08/21/16 02:35 60 08/21/16 01:00 62 08/21/16 00:48 98.6 68 141/65 100 08/21/16 00:00 60 08/20/16 23:00 60 08/20/16 23:00 Nasal Cannula 2.00 21 08/20/16 22:00 56 08/20/16 21:00 56 08/20/16 20:00 62 08/20/16 19:00 98.4 62 147/69 98 08/20/16 19:00 Room Air 1.00 21 08/20/16 19:00 67 08/20/16 18:00 61 08/20/16 17:19 60 08/20/16 16:07 63 08/20/16 15:30 Room Air 08/20/16 15:30 98.4 63 18 158/70 99 08/20/16 15:00 87 08/20/16 14:19 62 Labs: Laboratory Tests Test 08/21/16 06:12 White Blood Count 9.2 TH/MM3 (4.0-11.0) Red Blood Count 4.15 MIL/MM3 (4.00-5.30) Hemoglobin 11.0 GM/DL (11.6-15.3) Hematocrit 34.4 % (35.0-46.0) Mean Corpuscular Volume 82.9 FL (80.0-100.0) Mean Corpuscular Hemoglobin 26.6 PG (27.0-34.0) Mean Corpuscular Hemoglobin 32.1 % Concent (32.0-36.0) Red Cell Distribution Width 15.3 % (11.6-17.2) Platelet Count 342 TH/MM3 (150-450) Mean Platelet Volume 7.7 FL (7.0-11.0) Neutrophils (%) (Auto) 76.8 % (16.0-70.0) Lymphocytes (%) (Auto) 11.5 % (9.0-44.0) Monocytes (%) (Auto) 7.9 % (0.0-8.0) Eosinophils (%) (Auto) 3.6 % (0.0-4.0) Basophils (%) (Auto) 0.2 % (0.0-2.0) Neutrophils # (Auto) 7.1 TH/MM3 (1.8-7.7) Lymphocytes # (Auto) 1.1 TH/MM3 (1.0-4.8) Monocytes # (Auto) 0.7 TH/MM3 (0-0.9) Eosinophils # (Auto) 0.3 TH/MM3 (0-0.4) Basophils # (Auto) 0.0 TH/MM3 (0-0.2) CBC Comment DIFF FINAL Differential Comment Sodium Level 137 MEQ/L (136-145) Potassium Level 4.6 MEQ/L (3.5-5.1) Chloride Level 100 MEQ/L (98-107) Carbon Dioxide Level 31.3 MEQ/L (21.0-32.0) Anion Gap 6 MEQ/L (5-15) Blood Urea Nitrogen 13 MG/DL (7-18) Creatinine 1.16 MG/DL (0.50-1.00) Estimat Glomerular Filtration 46 ML/MIN (>89) Rate Random Glucose 109 MG/DL (74-106) Calcium Level 8.7 MG/DL (8.5-10.1) Phosphorus Level 2.8 MG/DL (2.5-4.9) Magnesium Level 2.2 MG/DL (1.5-2.5) Result Diagram: 08/21/1661108/21/16611 (1) right upper lobe adenocarcinoma (2) 1. Right Posterolateral Muscle Sparing Thoracotomy Plan: pain control OOB ambulate pulm toileting CM to eval for HHC chest tube removed without difficulty post cxr small to mod right ptx, will keep pt here overnight and repeat cxr in am path moderately differentiated adenocarcinoma , metastatic adenocarcinoma 1/2 lymph nodes pT2A (3) Afib Plan: on po cardizem increased and amiodarone (4) Constipation Plan: additional GI meds given Vicki Montenegro R. [employer] Aug 21, 2016 13:56
[2016-08-21] MEDS: PANTOPRAZOLE SOD 40 MG DELAYED RELEASE TAB PO SCH (20:36)
[2016-08-21] MEDS: PRAVASTATIN SOD 40 MG TAB PO SCH (20:36)
[2016-08-22] VITALS (21 sets, daily range): BP systolic 138–172; BP diastolic 55–81; PULSE 57–110; RESP 18–20; TEMP 98.1–98.7; O2SAT 95–99
[2016-08-22] MEDS: LOSARTAN 50 MG TAB PO SCH ×2 (00:15→08:57)
[2016-08-22] MEDS: ACETAMINOPHEN/HYDROcodone 325 MG/5 MG TAB PO PRN ×4 (03:31→17:18)
[2016-08-22] MEDS: AMIODARONE 200 MG TAB PO SCH ×2 (05:45→14:20)
--- NOTE | 2016-08-22 06:04 | RADRPT ---
EXAM DATE/TIME: 08/22/2016 05:04 [facility] COMPARISON: CHEST SINGLE AP, August 21, 2016, 10:57. INDICATIONS : Follow up pneumothorax. MEDICAL HISTORY : None. SURGICAL HISTORY : None. ENCOUNTER: Subsequent ACUITY: 3 days PAIN SCORE: 6/10 LOCATION: Bilateral chest FINDINGS: Single AP view of the chest. Slight increase in right lower lobe atelectasis versus consolidation. Pn eumothorax in the right upper lung zone is unchanged. Left lung clear. CONCLUSION: Increased right lower lung atelectasis versus consolidation. No change in right pneumotho rax. David Benites MD on August 22, 2016 at 6:01 Board Certified Radiologist. This report was verified electronically.
[2016-08-22] MEDS: DILTIAZEM-CD 180 MG CAP ER PO SCH (08:57)
[2016-08-22] MEDS: DOCUSATE SODIUM 100 MG CAP PO SCH (08:57)
[2016-08-22] MEDS: POTASSIUM PHOSPHATE MONOBASIC 500 MG TAB PO SCH (08:57)
[2016-08-22] MEDS: SERTRALINE HCL 100 MG TAB PO SCH (08:57)
[2016-08-22] MEDS: ESTROGENS CONJUGATED 0.625 MG TAB PO SCH (08:58)
[2016-08-22] MEDS: ASPIRIN EC 81 MG TABEC PO SCH (08:58)
[2016-08-22] MEDS: CLOBETASOL 0.05% TOPICAL SCH (09:00)
[2016-08-22] MEDS: SODIUM CHLORIDE 0.9% FLUSH 5 ML FLUSH IV FLUSH SCH (09:00)
--- NOTE | 2016-08-22 11:04 | PD.CAR.PN ---
CVT Progress Note Subjective/Hospital Course: 70/ female hx of right upper lobe adenocarcinoma , COPD , CAD surgery : right postero lateral muscle sparing thoracotomy, right upper lobectomy 08/15 08/16 chest tube drained 110cc/ 12 hrs + intermittent air leak cxr small right apical ptx will leave chest tube in place, pt very anxious and painful , IV dilaudid prn and prn xanax added pulm toileting 08/17 Doing well Weaning O2 as tolerated Discussed pathology findings of [id number] - Stage IIA Cancer Maintain CT to water seal. Re-evaluate in am 08/18 Doing well Back in a-fib this am. On Cardizem gtt and PO Amiodarone Will change from Cardizem to Digoxin Clamp CT. If CXR ok in am, will D/C CT 08/19 back in NSR phos and K+ replaced chest tube clamped overnight CXR noted, still has small intermittent air leak with cough small right apical PTX, volume loss right mid lobe chest tube unclamped and placed back to suction repeat cxr in am 08/20 chest xray no further PTX, no further air leak drained 450cc serous drainage no BM since surgery, will give additional ducolax supp and fleets enema 08/21 chest tube removed without difficulty, no air leak prior to removal post cxr small to mod right apical PTX will keep pt here today, recheck CXR in am , if stable , possible dc home in am 08/22 right ptx unchanged, pt asymptomatic, will discuss results with Dr Roberts pt BP elevated last pm, restarted on ARB Objective: GENERAL: SKIN: Warm and dry. incision intact to right postero lateral chest HEAD: Normocephalic. EYES: No scleral icterus. No injection or drainage. NECK: Supple, trachea midline. No JVD or lymphadenopathy. CARDIOVASCULAR: Regular rate and rhythm without murmurs, gallops, or rubs. RESPIRATORY: Breath sounds equal bilaterally. No accessory muscle use. some serous drainage right chest / Vaseline gauze with occlusive dressing in place to prior chest tube site GASTROINTESTINAL: Abdomen soft, non-tender, nondistended. MUSCULOSKELETAL: No cyanosis, or edema. BACK: Nontender without obvious deformity. No CVA tenderness. Vital Signs Date Time Temp Pulse Resp B/P Pulse Ox O2 Delivery O2 Flow Rate FiO2 08/22/16 10:41 57 08/22/16 09:27 70 08/22/16 08:12 58 08/22/16 07:33 Room Air 08/22/16 07:30 61 08/22/16 07:30 Room Air 08/22/16 07:30 98.7 63 19 163/70 95 08/22/16 06:00 62 08/22/16 05:45 61 08/22/16 04:51 16 08/22/16 04:00 61 08/22/16 03:15 98.2 110 18 172/81 96 08/22/16 03:00 62 08/22/16 03:00 Room Air 08/22/16 02:00 61 08/22/16 01:00 60 08/22/16 00:00 62 08/21/16 23:02 Room Air 08/21/16 23:00 98.3 65 18 177/76 96 08/21/16 23:00 58 08/21/16 22:00 60 08/21/16 22:00 Room Air 08/21/16 21:00 62 08/21/16 20:55 18 08/21/16 20:00 65 08/21/16 19:45 97.9 66 18 177/72 96 08/21/16 19:00 68 08/21/16 18:04 59 08/21/16 17:17 60 08/21/16 16:34 61 08/21/16 15:46 Room Air 08/21/16 15:37 68 08/21/16 15:36 98.7 65 19 158/76 96 08/21/16 14:05 74 08/21/16 13:00 58 08/21/16 12:27 59 08/21/16 11:30 63 08/21/16 11:30 98.5 60 18 159/66 94 08/21/16 11:30 Room Air Result Diagram: 08/21/16 0612 08/21/16 0612 Telemetry: NSR (1) right upper lobe adenocarcinoma (2) 1. Right Posterolateral Muscle Sparing Thoracotomy Plan: pain control OOB ambulate pulm toileting CM to eval for HHC PTX unchanged, pt asymptomatic will eval cxr with Dr Armando austin on discharge for now path moderately differentiated adenocarcinoma , metastatic adenocarcinoma 1/2 lymph nodes pT2A (3) Afib Plan: resolved on po cardizem and amiodarone (4) Hypertension Plan: re-add ARB Vicki Montenegro Aug 22, 2016 11:04
== END 2016-08-22 17:40 | disposition home health service (06) | DRG 164 ==
LOC: HSDI 08-15 05:25 → HCIN 08-15 13:15
PROVIDERS: ADMIT Thoracic Surgery (Cardiothoracic Vascular Surgery); ATTEND Thoracic Surgery (Cardiothoracic Vascular Surgery)
PROC: 07B70ZX Excision of Thorax Lymphatic, Open Approach, Diagnostic (ICD-10-PCS; 2016-08-15)
PROC: 3E0T3CZ (ICD-10-PCS; 2016-08-15)
PROC: 0BTC0ZZ Resection of Right Upper Lung Lobe, Open Approach (ICD-10-PCS; principal; 2016-08-15 07:14)
DX: C34.11 Malignant neoplasm of upper lobe, right bronchus or lung (principal); C77.1 Secondary and unspecified malignant neoplasm of intrathoracic lymph nodes; I48.91 Unspecified atrial fibrillation; J95.811 Postprocedural pneumothorax; J44.9 Chronic obstructive pulmonary disease, unspecified; I25.10 Atherosclerotic heart disease of native coronary artery without angina pectoris; I10 Essential (primary) hypertension; K59.00 Constipation, unspecified
CPT/HCPCS: 36415; 71010; 71020; 76937; 80048; 81001; 83735; 84100; 84443; 85025; 85027; 85610; 85730; 86850; 86900; 86901; 86920; 88305; 88307; 88309; 88331; 93005; 94150; 94640; 94664; C9290; J0131; J0690; J1100; J1160; J1170; J1940; J2250; J2405; J2710; J3010; J3475; J7120; J7613

== ENCOUNTER → 2016-08-12 | Outpatient (CLI) | payer MEDICARE ==
[~2016-08-12] MED LIST changes: +AMIO200T PO; +AMOX500T PO; +ASPI-110 PO; +CLOB0.059 TOPICAL; +DOCU1CAP39 PO; +HYDR-3516 PO; +SLEE25TA
[2016-08-12 12:57] LABS: HEMATOCRIT 37.3 % (35.0-46.0); MEAN CELL VOLUME 82.2 FL (80.0-100.0); MEAN CORPUSCULAR HEMOGLOBIN 27.1 PG (27.0-34.0); MEAN CORPUSCULAR HGB CONC 32.9 % (32.0-36.0); PLATELET COUNT 277 TH/MM3 (150-450); RED BLOOD COUNT 4.54 MIL/MM3 (4.00-5.30); RED CELL DISTRIBUTION WIDTH 15.3 % (11.6-17.2); REVIEW FLAG FINAL; WHITE BLOOD COUNT 7.5 TH/MM3 (4.0-11.0)
[2016-08-12 13:06] LABS: APTT (PATIENT) 28.1 SEC (24.3-30.1); PROTHROMBIN TIME - PATIENT 10.5 SEC (9.8-11.6)
[2016-08-12 13:08] LABS: BLOOD, URINE NEG (NEG); COMMENT (UR) CULT NOT INDICATED; CULTURE IF INDICATED CULT NOT INDICATED; GLUCOSE,URINE NEG (NEG); HYALINE CAST, URINE 12 /lpf (RARE); KETONE, URINE NEG (NEG); MUCUS URINE FEW /lpf (OCC); NITRITE,URINE NEG (NEG); SQUAMOUS EPITHELIAL CELL URINE 1 /hpf (0-5); URINE COLOR YELLOW (YELLW/STRAW)
[2016-08-12 13:26] LABS: BICARBONATE 28.8 MEQ/L (21.0-32.0); POTASSIUM 3.8 MEQ/L (3.5-5.1)
--- NOTE | 2016-08-12 13:43 | RADRPT ---
EXAM DATE/TIME: 08/12/2016 13:21 [facility] COMPARISON: CT NEEDLE BIOPSY LUNG, RIGHT, May 23, 2016, 8:12. CHEST EXPIRATION ONLY, May 23, 2016, 11:58. INDICATIONS : Preop Lobectomy, Evaluate for communicable disease, pneumothorax, pneumonia MEDICAL HISTORY : Carcinoma, lung. Cardiovascular disease. SURGICAL HISTORY : Coronary artery stent. ENCOUNTER: Initial ACUITY: 1 day PAIN SCORE: 0/10 LOCATION: Bilateral chest FINDINGS: There is a 2.0 x 1.2 cm mass in the right upper lung. The previously biopsied. The rest of the lung f ields are clear. No acute pulmonary infiltrates. No pleural effusions or pulmonary edema. The heart a nd hilar structures are within normal limits. The bony structures are grossly intact. CONCLUSION: 1. Mass in the right upper lung measuring 2.0 cm. 2. No acute intrathoracic disease. Pranav Apple MD on August 12, 2016 at 13:40 Board Certified Radiologist. This report was verified electronically.
--- NOTE | 2016-08-13 13:33 | EKG ---
Date Performed: 08/12/2016 Time Performed: 12:11:04 PTAGE: 70 years EKG: Sinus rhythm POSSIBLE RIGHT VENTRICULAR CONDUCTION DELAY BORDERLINE ECG PREVIOUS TRACING : 03/30/2016 07.43 Compared to prior tracing no significant change DOCTOR: Vaibhav Fu Interpretating Date/Time 08/13/2016 13:25:05
== END ==
LOC: CPRE 11:48
PROVIDERS: ATTEND Thoracic Surgery (Cardiothoracic Vascular Surgery)
DX: Z01.810 Encounter for preprocedural cardiovascular examination (principal); Z01.811 Encounter for preprocedural respiratory examination; Z01.812 Encounter for preprocedural laboratory examination; C34.11 Malignant neoplasm of upper lobe, right bronchus or lung; R94.31 Abnormal electrocardiogram [ECG] [EKG]
CPT/HCPCS: 36415; 71020; 80048; 81001; 85027; 85610; 85730; 93005

== ENCOUNTER → 2017-06-19 | Day surgery (SDC) | payer MEDICARE ==
[~2017-06-19] VITALS: Ht 167.6 cm; Wt 78.0 kg
[~2017-06-19] MED LIST changes: +AMIO200T PO; +AMOX500T PO; +ASPI1TAB57 PO; +CHLORHEXIDINE GLUCONATE 2 % 1 PACK (2 CLOTHS) TOPICAL PRN; +CLOB0.059 TOPICAL; +DOCU1CAP39 PO; +HYDR-3516 PO; +LACTATED RINGER'S 1000 ML IV PRN; +LIDOCAINE HCL 1% PF 30 ML VIAL ONE; +LIDOCAINE HCL 2% JELLY 5 ML SYRINGE TOPICAL ONE; +METOPROLOL TARTRATE 25 MG TAB PO PRN; +POVIDONE IODINE 5% (ANTISEPSIS KIT) 4 APPLICATIONS EACH NARE PRN; +PROPARACAINE HCL 0.5% OPHT SOLN 15 ML BTL LEFT EYE ONE; +SODIUM CHLORID 0.9% 500 ML IV PRN; +TOBRAMYCIN/DEXAMETHASONE OPTH OINT 3.5 GM TUBE ONE
[2017-06-19] MEDS: CYCLOPENTOLATE HCL 1% OPHT SOLN 2 ML BTL LEFT EYE SCH ×4 (06:55→07:10)
[2017-06-19] MEDS: FLURBIPROFEN 0.03% OPHT SOLN 2.5 ML BTL LEFT EYE SCH ×4 (06:55→07:10)
[2017-06-19] MEDS: PHENYLEPHRINE HCL 10% OPTH SOLN 5 ML BTL LEFT EYE SCH ×4 (06:55→07:10)
[2017-06-19] MEDS: TROPICAMIDE 1% OPHT SOLN 15 ML BTL LEFT EYE SCH ×4 (06:55→07:10)
[2017-06-19 09:05] VITALS: BP 169/71; PULSE 68; RESP 16; TEMP 98.4; O2SAT 98
--- NOTE | 2017-06-19 09:49 | MP ---
cc: Jaswinder Sosa MD DATE OF OPERATION: 06/19/2017 [facility] # [id number] PREOPERATIVE DIAGNOSIS: Visually significant cataract, left eye. POSTOPERATIVE DIAGNOSIS: Visually significant cataract, left eye. OPERATION: Phacoemulsification with posterior chamber lens implantation, left eye. SURGEON: Jaswinder Sosa MD ANESTHESIA: Topical with MAC. COMPLICATIONS: None. PROCEDURE: After informed consent was obtained, the patient was brought into the operative suite and placed on appropriate monitors by the Anesthesia Service. The patient had been given dilating drops and topical lidocaine gel in the holding area. The patient's operative eye was then prepped and draped in the usual sterile fashion. A wire lid speculum was placed. Further 2% lidocaine was then dropped on the cornea prior to beginning the procedure. A paracentesis incision was made in the peripheral cornea with a 1 mm micheal keratome. The anterior chamber was filled with viscoelastic. The anterior chamber was then entered through a stepped, clear corneal incision using a sharp 3 mm micheal keratome. A circular tear capsulorrhexis was then made with a bent needle cystitome. Following hydrodissection of the lens nucleus with balance saline, phaco-emulsification of the nucleus was performed using a modified chopping technique. The remaining cortex was removed with irrigation/aspiration. The prior two procedures were both performed using the handpieces of the [employer] phaco unit. The capsular bag was then filled with viscoelastic. The intraocular lens was then injected into the capsular bag and positioned. The type of intraocular lens and its power can be found elsewhere in this chart. The remaining viscoelastic was then removed from the anterior chamber with the IA handpiece. The anterior chamber was reformed with balanced saline. The wound was then closed securely with stromal hydration. It was found to be watertight to an intraocular pressure of at least 30 mmHg by palpation. A small amount of balanced salt solution was then removed through the paracentesis site and the intraocular pressure at the end of the case was approximately 20 by palpation. All drapes were then removed. TobraDex ointment was then placed in the eye, which was closed beneath a semi-pressure patch dressing. The patient tolerated this procedure well and left the operating room awake and alert. The patient is to follow-up in my office in the morning. MD DESTINY Silva , 09:39 AM , 09:48 AM
== END | disposition home or self-care (01) ==
LOC: PHSDC 06:04 → EDSTATUS 08:00
PROVIDERS: ATTEND Optometrist Occupational Vision
DX: H25.812 Combined forms of age-related cataract, left eye (principal)
CPT/HCPCS: 00142; 66984; J7040; V2632

== ENCOUNTER 2017-09-13 22:01 | Inpatient (IN) ==
[2017-09-13] MEDS ORDERED: Sod Chloride 0.9% Inj 1,000 ML IV.SIG ONE ×2 (22:37→23:32)
[2017-09-13] MEDS ORDERED: Morphine Inj 4 MG/ML Vial IV.PUSH ONE (22:37)
[2017-09-13 23:20] LABS: Baso % (Auto) 0.3 % (0.0-2.0); Eos % (Auto) 0.1 % (0.0-4.0); Hematocrit 34.8 % (35.0-46.0); Hemoglobin 11.2 gm/dL (11.6-15.3); Lymph # (Auto) 0.5 th/mm3 (1.0-4.8); Lymph % (Auto) 2.7 % (9.0-44.0); Mean Corpuscular HGB Conc 32.3 % (32.0-36.0); Mean Corpuscular Hemoglobin 25.8 pg (27.0-34.0); Mean Corpuscular Volume 79.7 fL (80.0-100.0); Mono # (Auto) 0.5 th/mm3 (0.0-0.9); Mono % (Auto) 2.8 % (0.0-8.0); Neut # (Auto) 15.7 th/mm3 (1.8-7.7); Neut % (Auto) 94.1 % (16.0-70.0); Platelet Count 227 th/mm3 (150-450); Red Blood Count 4.36 mil/mm3 (4.00-5.30); Red Cell Distribution Width 17.3 % (11.6-17.2); White Blood Count 16.7 th/mm3 (4.0-11.0)
[2017-09-13 23:33] LABS: Alanine Aminotransferase 19 U/L (10-53); Albumin 2.9 g/dL (3.4-5.0); Anion Gap 10 meq/L (5-15); Aspartate Aminotransferase 16 U/L (15-37); Blood Urea Nitrogen 32 mg/dL (7-18); Calcium 9.3 mg/dL (8.5-10.1); Carbon Dioxide 25.3 meq/L (21.0-32.0); Chloride 102 meq/L (98-107); Glomerular Filtration Rate 21 mL/min (>89); Glucose,Random 120 mg/dL (74-106); Lipase 56 U/L (73-393); Potassium 3.4 meq/L (3.5-5.1); Sodium 137 meq/L (136-145)
[2017-09-13 23:35] LABS: Alkaline Phosphatase 126 U/L (45-117); Total Protein 7.1 g/dL (6.4-8.2)
--- NOTE | 2017-09-14 00:55 | ED ---
HPI General Chief Complaint: Abdominal Pain Stated Complaint: Rt sided Abd pain Time Seen by Provider: 09/13/17 22:29 Source: patient and family Mode of arrival: ambulatory Limitations: no limitations History of Present Illness HPI narrative: Patient is a 71-year-old female, past medical history significant for lung cancer in remission, coronary artery disease, hypertension , hyperlipidemia, chronic kidney disease who presents with complaint of right flank pain for the last several hours. She states that several days ago she had some intermittent right flank pain and started to have hematuria. Today the flank pain began with more intensity and has "not let up." She has also had nausea and nonbilious, nonbloody emesis. No constipation or diarrhea. The pain is not associated with meals nor positions. Pain does not change with movement. She denies fevers but does admit to some chills. This pain has never happened before. MD complaint: abdominal pain and flank pain Pain Consistency: constant Location: R flank Severity: moderate Quality: aching Relieving factors: nothing Associated symptoms: vomiting and chills Related Data Home Medications Medication Instructions Recorded Confirmed aspirin 81 mg PO DAILY 09/13/17 09/13/17 conjugated estrogens [Premarin] 0.625 mg PO DAILY 09/13/17 09/13/17 diltiazem HCl [Cartia XT] 300 mg PO DAILY 09/13/17 09/13/17 sertraline 100 mg PO DAILY 09/13/17 09/13/17 simvastatin 20 mg PO QPM 09/13/17 09/13/17 telmisartan 80 mg PO DAILY 09/13/17 09/13/17 Allergies Allergy/AdvReac Type Severity Reaction Status Date / Time morphine Allergy Severe ITCHING Verified 09/13/17 22:05 Sulfa (Sulfonamide Allergy Severe rash Verified 09/13/17 22:05 Antibiotics) Review of Systems Except as stated in HPI: all other systems reviewed are negative Constitutional Reports chills and Denies fever(s) Eyes Denies blurry vision ENT Denies nasal congestion Cardiovascular Denies chest pain Respiratory Denies dyspnea Gastrointestinal Reports abdominal pain, Denies diarrhea and Reports vomiting Genitourinary Reports hematuria Integumentary/Breasts Denies rash Neurologic Denies headache(s) Psychiatric Denies confusion [facility] Medical History Medical History CAD (coronary artery disease) (Acute) HTN (hypertension) (Acute) Hypercholesteremia (Acute) Kidney disease, chronic, stage III (GFR 30-59 ml/min) (Acute) Lung cancer (Acute) Surgical History Surgical History History of cataract surgery (Acute) History of heart artery stent (Acute) History of lung surgery (Acute) Social History Social History Substance History: No History of Abuse Second Hand Smoke Exposure: No Smoking Status: Former smoker Tobacco Type: Cigarettes How Often Do You Have a Drink Containing Alcohol: Monthly or less Recent Travel in [facility] within the Last 8 Weeks: No Recent Out of Country Travel within the Last 8 Weeks: No Immunization History Tetanus Immunization: Unsure Hx Influenza Vaccine This Season: Yes Exam Narrative Exam Narrative: GENERAL: Elderly female whom appears to be in pain SKIN: Focused skin assessment warm/dry. No rashes. HEAD: Atraumatic. Normocephalic. EYES: Pupils equal and round. No scleral icterus. No injection or drainage. ENT: No nasal bleeding or discharge. Mucous membranes pink and moist. NECK: Trachea midline. No JVD. CARDIOVASCULAR: Regular rate and rhythm. No murmur appreciated. Intact and equal peripheral pulses RESPIRATORY: No accessory muscle use. Clear to auscultation. Breath sounds equal bilaterally. GASTROINTESTINAL: Abdomen soft, nondistended. Right CVA tenderness. Right- sided abdominal pain in the upper, middle, and lower areas of the right side of the abdomen. Negative García sign. Negative Rovsing sign. Negative obturator sign. Hepatic and splenic margins not palpable. MUSCULOSKELETAL: No obvious deformities. No clubbing. No cyanosis. No edema. NEUROLOGICAL: Awake and alert. No obvious cranial nerve deficits. Motor grossly within normal limits. Normal speech. PSYCHIATRIC: Appropriate mood and affect; insight and judgment normal. Course Initial Documented Vital Signs Temperature 100.0 F H 09/13/17 22:06 Pulse Rate 106 H 09/13/17 22:06 Respiratory Rate 20 09/13/17 22:06 Blood Pressure 146/84 H 09/13/17 22:06 Pulse Oximetry 98 09/13/17 22:06 Last Documented Vital Signs Temperature 100.0 F H 09/13/17 22:06 Pulse Rate 79 09/14/17 00:30 Respiratory Rate 18 09/14/17 00:30 Blood Pressure 132/55 L 09/14/17 00:30 Pulse Oximetry 98 09/14/17 00:30 Medical Decision Making MDM Narrative Medical decision making narrative: Patient is a 71-year-old female who presents with complaint of right flank pain. Workup reveals urinary tract infection with acute kidney injury. CT did show 3 and 4 mm stones with mild hydronephrosis. I spoke to Dr. Urrutia, urologist on-call, who does not think that she has an obstruction, but he will see the patient in the morning. I have given her fluids and Rocephin to treat her pyelonephritis. I spoke to Dr. Bowling, hospitalist on-call who asked to admit the patient to Dr. Taylor. Differential Diagnosis Differential Diagnosis: Differential diagnosis includes but is not limited to nephrolithiasis, pyelonephritis, appendicitis, cholecystitis, abdominal aortic aneurysm. Medical Records Medical records reviewed: Yes I reviewed the patient's medical records. Lab Data Lab results reviewed: Yes I reviewed the patient's lab results. Lab results narrative: Labs revealed leukocytosis and acute kidney injury. Result diagrams: 09/13/17 22:45 09/13/17 22:45 Lab Results 09/13/17 09/13/17 09/13/17 Range/Units 22:45 22:45 22:45 WBC 16.7 H (4.0-11.0) th/mm3 RBC 4.36 (4.00-5.30) mil/mm3 Hgb 11.2 L (11.6-15.3) gm/dL Hct 34.8 L (35.0-46.0) % MCV 79.7 L (80.0-100.0) fL MCH 25.8 L (27.0-34.0) pg MCHC 32.3 (32.0-36.0) % RDW 17.3 H (11.6-17.2) % Plt Count 227 (150-450) th/mm3 MPV 8.0 (7.0-11.0) fL Neut % (Auto) 94.1 H (16.0-70.0) % Lymph % (Auto) 2.7 L (9.0-44.0) % [place] % (Auto) 2.8 (0.0-8.0) % Eos % (Auto) 0.1 (0.0-4.0) % Baso % (Auto) 0.3 (0.0-2.0) % Neut # (Auto) 15.7 H (1.8-7.7) th/mm3 Lymph # (Auto) 0.5 L (1.0-4.8) th/mm3 [place] # (Auto) 0.5 (0.0-0.9) th/mm3 Eos # (Auto) 0.0 (0.0-0.4) th/mm3 Baso # (Auto) 0.0 (0.0-0.2) th/mm3 WBC Differential . Differential Comment Auto diff final Sodium 137 (136-145) meq/L Potassium 3.4 L (3.5-5.1) meq/L Chloride 102 (98-107) meq/L Carbon Dioxide 25.3 (21.0-32.0) meq/L Anion Gap 10 (5-15) meq/L BUN 32 H (7-18) mg/dL Creatinine 2.33 H (0.50-1.00) mg/dL Estimated GFR 21 L (>89) mL/min Random Glucose 120 H (74-106) mg/dL Lactic Acid 1.7 (0.4-2.0) mmol/L Calcium 9.3 (8.5-10.1) mg/dL Total Bilirubin 0.4 (0.2-1.0) mg/dL AST 16 (15-37) U/L ALT 19 (10-53) U/L Alkaline Phosphatase 126 H (45-117) U/L Total Protein 7.1 (6.4-8.2) g/dL Albumin 2.9 L (3.4-5.0) g/dL Lipase 56 L (73-393) U/L Urine Color (Yellw/Straw) Urine Clarity (Clear) Urine pH (5.0-8.5) Ur Specific [place] (1.002-1.035) Urine Protein (Neg-Trace) mg/dL Urine Glucose (UA) (Negative) mg/dL Urine Ketones (Negative) mg/dL Urine Occult Blood (Negative) Urine Nitrate (Negative) Urine Bilirubin (Negative) Urine Urobilinogen (Less than 2) mg/dL Ur Leukocyte Esterase (Negative) Urine RBC (0-3) /hpf Urine WBC (0-5) /hpf Ur Squamous Epith Cells (0-5) /hpf Ur Renal Epithelial Cell (None) /hpf Urine Bacteria (None) /hpf Urine Mucus (Occasional) /lpf Micro UA Comment Urine Culture Comments 09/14/17 Range/Units 00:30 WBC (4.0-11.0) th/mm3 RBC (4.00-5.30) mil/mm3 Hgb (11.6-15.3) gm/dL Hct (35.0-46.0) % MCV (80.0-100.0) fL MCH (27.0-34.0) pg MCHC (32.0-36.0) % RDW (11.6-17.2) % Plt Count (150-450) th/mm3 MPV (7.0-11.0) fL Neut % (Auto) (16.0-70.0) % Lymph % (Auto) (9.0-44.0) % [place] % (Auto) (0.0-8.0) % Eos % (Auto) (0.0-4.0) % Baso % (Auto) (0.0-2.0) % Neut # (Auto) (1.8-7.7) th/mm3 Lymph # (Auto) (1.0-4.8) th/mm3 [place] # (Auto) (0.0-0.9) th/mm3 Eos # (Auto) (0.0-0.4) th/mm3 Baso # (Auto) (0.0-0.2) th/mm3 WBC Differential Differential Comment Sodium (136-145) meq/L Potassium (3.5-5.1) meq/L Chloride (98-107) meq/L Carbon Dioxide (21.0-32.0) meq/L Anion Gap (5-15) meq/L BUN (7-18) mg/dL Creatinine (0.50-1.00) mg/dL Estimated GFR (>89) mL/min Random Glucose (74-106) mg/dL Lactic Acid (0.4-2.0) mmol/L Calcium (8.5-10.1) mg/dL Total Bilirubin (0.2-1.0) mg/dL AST (15-37) U/L ALT (10-53) U/L Alkaline Phosphatase (45-117) U/L Total Protein (6.4-8.2) g/dL Albumin (3.4-5.0) g/dL Lipase (73-393) U/L Urine Color Yellow (Yellw/Straw) Urine Clarity Hazy H (Clear) Urine pH 6.0 (5.0-8.5) Ur Specific [place] 1.004 (1.002-1.035) Urine Protein 30 H (Neg-Trace) mg/dL Urine Glucose (UA) Negative (Negative) mg/dL Urine Ketones Negative (Negative) mg/dL Urine Occult Blood Small H (Negative) Urine Nitrate Negative (Negative) Urine Bilirubin Negative (Negative) Urine Urobilinogen Less than 2 (Less than 2) mg/dL Ur Leukocyte Esterase Large H (Negative) Urine RBC 1 (0-3) /hpf Urine WBC 60 H (0-5) /hpf Ur Squamous Epith Cells 5 (0-5) /hpf Ur Renal Epithelial Cell <1 (None) /hpf Urine Bacteria Occasional H (None) /hpf Urine Mucus Few H (Occasional) /lpf Micro UA Comment Culture indicated Urine Culture Comments Culture indicated Imaging Data Radiologist's impression: Abdomen/Pelvis CT 09/14/17 00:34 CONCLUSION: 1. Induration of the perinephric fat on the right side and mild prominence of the collecting system with 2 calcified stones in the mid to distal right ureter measuring 3 and 4 mm. 2. Stable left atrophic kidney. 3. Stable small fat-containing left inguinal hernia. Discharge Plan Discharge Disposition Patient Disposition: 30 Still Patient Discharge Condition Condition: Fair Discharge Details Diagnosis: IKER (acute kidney injury), Acute pyelonephritis, Right nephrolithiasis Physicians Team ED Provider: Hattie Lam Primary Care Provider: Maco Lynch Attending Provider: Kurtis Taylor Status ED Status: Admitted Patient
[2017-09-14 01:16] LABS: Bacteria,Urine Occasional /hpf; Bilirubin,Urine Negative (Negative); Clarity,Urine Hazy (Clear); Color,Urine Yellow (Yellw/Straw); Glucose,Urine (UA) Negative (Negative); Leukocyte Esterase,Urine Large (Negative); Mucus,Urine Few /lpf (Occasional); Nitrite,Urine Negative (Negative); Renal Epithelial Cells,Urine <1 /hpf; Specific Gravity,Urine 1.004 (1.002-1.035); Squamous Epithelial Cell,Urine 5 /hpf (0-5)
--- NOTE | 2017-09-14 01:18 | CT ---
EXAM DATE: 09/14/2017 12:49 AM EDT AGE/SEX: 71 years / Female INDICATIONS: Left sided abdominal pain. CLINICAL DATA: This is the patient's initial encounter. Patient reports that signs and symptoms have been present for 1 day and indicates a pain score of 6/10. MEDICAL/SURGICAL HISTORY: Renal insufficiency. Hypertension. Carcinoma, lung. Coronary stent . Lung surgery RADIATION DOSE: 7.93 CTDI (mGy) COMPARISON: [facility], CT ABDOMEN AND PELVIS W AND W/O CONTRAST, 06/11/2016. . TECHNIQUE: Multiple contiguous axial images were obtained through the abdomen. Images were obtained using multiple row detector helical technique. Using automated exposure control and adjustment of the mA and/or kV according to patient size, radiation dose was kept as low as reasonably achievable to o btain optimal diagnostic quality images. DICOM format image data is available electronically for rev iew and comparison. FINDINGS: Lower Lungs: The visualized lower lungs are clear. Liver: The liver has a homogeneous density without space-occupying lesion for noncontrast technique. There is no dilation of the biliary tree. No calcified gallstones. Spleen: Homogeneous density without enlargement. Pancreas: Unremarkable without mass or calcification. Kidneys: Atrophic left kidney is similar to prior CT scans. There is a changed appearance to the rig ht kidney, now with induration of the fat in the perinephric space and mild prominence of the renal p abhishek. The right ureter is mildly prominent down to the midportion where there are 2 calcified stones measuring 3 and 4 mm. Adrenal Glands: Unremarkable. Aorta: The aorta and proximal iliac vessels are grossly unremarkable without aneurysmal dilation. Bowel/Mesentery: No dilated loops of small or large bowel. The appendix is identified lateral to the cecum and has a normal size and appearance. No evidence of free fluid. Abdominal Wall: Intact. Retroperitoneum: No evidence of adenopathy in the retrocrural, para-aortic, or deep pelvic regions. Bladder: Contours are smooth. No calcifications in the lumen. Reproductive Organs: No abnormal masses or calcifications seen. Inguinal: Small left-sided fat-containing inguinal hernia. Bony Structures: Unremarkable. CONCLUSION: 1. Induration of the perinephric fat on the right side and mild prominence of the collecting system with 2 calcified stones in the mid to distal right ureter measuring 3 and 4 mm. 2. Stable left atrophic kidney. 3. Stable small fat-containing left inguinal hernia. Electronically signed by: Renan Paula MD 09/14/2017 1:16 AM EDT
[2017-09-14] MEDS: HYDROmorphone PF Inj 2 MG/ML Vial IV.PUSH PRN ×3 (02:54→18:30)
[2017-09-14 07:04] LABS: Baso % (Auto) 0.2 % (0.0-2.0); Eos % (Auto) 0.3 % (0.0-4.0); Hematocrit 29.9 % (35.0-46.0); Hemoglobin 9.6 gm/dL (11.6-15.3); Lymph # (Auto) 0.8 th/mm3 (1.0-4.8); Lymph % (Auto) 5.5 % (9.0-44.0); Mean Corpuscular HGB Conc 32.1 % (32.0-36.0); Mean Corpuscular Hemoglobin 25.8 pg (27.0-34.0); Mean Corpuscular Volume 80.4 fL (80.0-100.0); Mono # (Auto) 0.6 th/mm3 (0.0-0.9); Neut # (Auto) 13.7 th/mm3 (1.8-7.7); Platelet Count 219 th/mm3 (150-450); Red Blood Count 3.72 mil/mm3 (4.00-5.30); Red Cell Distribution Width 17.8 % (11.6-17.2); White Blood Count 15.2 th/mm3 (4.0-11.0)
[2017-09-14 07:40] LABS: Calcium 8.2 mg/dL (8.5-10.1); Carbon Dioxide 26.2 meq/L (21.0-32.0); Potassium 3.6 meq/L (3.5-5.1)
[2017-09-14] MEDS: Acetaminophen 325 MG Tablet PO PRN ×2 (09:02→17:52)
--- NOTE | 2017-09-14 09:28 | P.HP ---
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 Patient presents to the ER with complaint of right flank pain for the last several hours. She states that several days ago she had some intermittent right flank pain and started to have hematuria, which resolved. Then yesterday the flank pain began with more intensity and has "not let up." She has also had nausea and nonbilious, nonbloody emesis. The pain is not associated with meals or positions. Pain does not change with movement. She denies constipation, diarrhea or fevers but does admit to some chills. This pain has never happened before. Abdomen/Pelvis CT 09/14/17 00:34 CONCLUSION: 1. Induration of the perinephric fat on the right side and mild prominence of the collecting system with 2 calcified stones in the mid to distal right ureter measuring 3 and 4 mm. 2. Stable left atrophic kidney. 3. Stable small fat-containing left inguinal hernia PAST MEDICAL HISTORY: Adenocarcinoma of the Right upper lobe of the lung (pT2a pN1 M0; Stage IIa. Right upper lobectomy performed on 08/15/2016.) Arthritis Coronary Artery Disease Coronary Stent Depression High Cholesterol Hypertension PAST SURGICAL HISTORY: Breast biopsy CT guided biopsy of RUL lung mass Hysterectomy, Complete Left carotid surgery Tubal ligation Colonoscopy in 2013 Intracoronary stent placement in 2005 FAMILY MEDICAL HISTORY: three brothers with CAD SOCIAL HISTORY: denies ETOH use former tobacco use quit 2016 denies illicit drug use - Diagnosis (1) Acute pyelonephritis Inpatient Certification: I certify that the inpatient services were ordered in accordance with Medicare regulations governing the order. This includes certification that hospital inpatient services are reasonable and necessary and in the case of services not specified as inpatient-only under 42 CFR 419.22(n), that they are appropriately provided as inpatient services in accordance to with the 2-midnight benchmark under 43 CFR 412.3(e) Review of Systems All other systems reviewed negative except as stated in HPI PMFSH - History History Provided By: Patient - Medical History Medical History: Medical History (Last Reviewed 09/14/17 @ 00:53 by Hattie Lam MD) CAD (coronary artery disease) HTN (hypertension) Hypercholesteremia Kidney disease, chronic, stage III (GFR 30-59 ml/min) Lung cancer - Surgical History Surgical History: Surgical History (Last Reviewed 09/14/17 @ 00:53 by Hattie Lam MD) History of cataract surgery History of heart artery stent History of lung surgery - Tobacco History Second Hand Smoke Exposure: No Tobacco Use In Past 30 Days: No Smoking Status: Former smoker Tobacco Type: Cigarettes - Alcohol History How Often Do You Have a Drink Containing Alcohol: Never - Substance Use History Substance History: No History of Abuse - Travel History Recent Travel in the [place] Within the Last 8 Weeks: No Recent Travel Out of the Country Within the Last 8 Weeks: No - Immunization History Tetanus Immunization: Unsure Hx Influenza Vaccine This Season: Yes Medications and Allergies Allergies Allergy/AdvReac Type Severity Reaction Status Date / Time morphine Allergy Severe ITCHING Verified 09/13/17 22:05 Sulfa (Sulfonamide Allergy Severe rash Verified 09/13/17 22:05 Antibiotics) hydromorphone [From Dilaudid] AdvReac Severe Hallucinati Verified 09/17/17 01:03 ons Home Medications Medication Instructions Recorded Confirmed Type conjugated estrogens [Premarin] 0.625 mg PO DAILY 09/13/17 09/13/17 History sertraline 100 mg PO DAILY 09/13/17 09/13/17 History simvastatin 20 mg PO QPM 09/13/17 09/13/17 History telmisartan 80 mg PO DAILY 09/13/17 09/13/17 History Active Medications: Active Medications Acetaminophen (Tylenol) 650 mg PO Q6H PRN PRN Reason: FEVER>100 Last Admin: 09/14/17 09:02 Dose: 650 mg Hydromorphone HCl (Dilaudid Pf Inj) 0.5 mg IV.PUSH Q4H PRN PRN Reason: pain level 3-10 Last Admin: 09/14/17 08:17 Dose: 0.5 mg Ceftriaxone Sodium 1,000 mg/ (Sodium Chloride) 100 mls @ 200 mls/hr IV.SIG Q24H BEBETO Potassium Chloride/Sodium Chloride (Ns + Kcl 20 Meq Inj) 1,000 mls @ 84 mls/hr IV.CONT .[id number] [facility] Stop: 09/14/17 14:24 Last Admin: 09/14/17 03:40 Dose: 84 mls/hr Ondansetron HCl (Zofran Inj) 4 mg IV.PUSH Q6H PRN PRN Reason: nausea, vomiting Last Admin: 09/14/17 08:22 Dose: 4 mg Sodium Chloride (Ns Flush) 2 ml IV.FLUSH PRN PRN PRN Reason: FLUSH AFTER USING IV ACCESS Last Admin: 09/14/17 08:17 Dose: 2 ml Exam Vital signs: Vital Signs 09/13/17 22:06 09/13/17 22:40 09/13/17 22:42 Temperature 100.0 F H Pulse Rate 106 H 91 H Respiratory Rate 20 18 Blood Pressure 146/84 H 150/65 H Pulse Oximetry 98 98 98 09/14/17 00:30 09/14/17 03:02 09/14/17 03:10 Temperature 99.3 F Pulse Rate 79 77 81 Respiratory Rate 18 16 20 Blood Pressure 132/55 L 121/56 L 130/69 Pulse Oximetry 98 98 93 L Intake & Output 09/13/17 09/14/17 09/14/17 18:59 06:59 18:59 Intake Total 300 / 300 Output Total 400 / 400 Balance -100 / -100 Weight 77.564 kg Intake: Oral 300 / 300 Output: Urine 400 / 400 Other: Date of Last Bowel Movement 09/12/17 Weight On Admission 77.564 kg Narrative: GENERAL: This is a well-nourished, well-developed patient, in no apparent distress. CARDIOVASCULAR: Regular rate and rhythm RESPIRATORY: Clear to auscultation. Breath sounds equal bilaterally. GASTROINTESTINAL: Abdomen soft, non-tender, nondistended. Normal active bowel sounds GENITOURINARY: right CVA tenderness MUSCULOSKELETAL: Extremities without clubbing, cyanosis, or edema. NEURO: Alert & Oriented x4 to person, place, time, situation. Moves all ext x4 Results - Labs CBC & Chem 7: 09/14/17 06:27 09/14/17 06:27 Labs: Laboratory Results - last 24 hr 09/13/17 09/13/17 09/13/17 22:45 22:45 22:45 WBC 16.7 H RBC 4.36 Hgb 11.2 L Hct 34.8 L MCV 79.7 L MCH 25.8 L MCHC 32.3 RDW 17.3 H Plt Count 227 MPV 8.0 Neut % (Auto) 94.1 H Lymph % (Auto) 2.7 L Wells % (Auto) 2.8 Eos % (Auto) 0.1 Baso % (Auto) 0.3 Neut # (Auto) 15.7 H Lymph # (Auto) 0.5 L Wells # (Auto) 0.5 Eos # (Auto) 0.0 Baso # (Auto) 0.0 WBC Differential . Differential Comment Auto diff final Sodium 137 Potassium 3.4 L Chloride 102 Carbon Dioxide 25.3 Anion Gap 10 BUN 32 H Creatinine 2.33 H Estimated GFR 21 L Random Glucose 120 H Lactic Acid 1.7 Calcium 9.3 Total Bilirubin 0.4 AST 16 ALT 19 Alkaline Phosphatase 126 H Total Protein 7.1 Albumin 2.9 L Lipase 56 L Urine Color Urine Clarity Urine pH Ur Specific [place] Urine Protein Urine Glucose (UA) Urine Ketones Urine Occult Blood Urine Nitrate Urine Bilirubin Urine Urobilinogen Ur Leukocyte Esterase Urine RBC Urine WBC Ur Squamous Epith Cells Ur Renal Epithelial Cell Urine Bacteria Urine Mucus Micro UA Comment Urine Culture Comments 09/14/17 09/14/17 09/14/17 00:30 06:27 06:27 WBC 15.2 H RBC 3.72 L Hgb 9.6 L Hct 29.9 L MCV 80.4 MCH 25.8 L MCHC 32.1 RDW 17.8 H Plt Count 219 MPV 8.0 Neut % (Auto) 90.0 H Lymph % (Auto) 5.5 L Wells % (Auto) 4.0 Eos % (Auto) 0.3 Baso % (Auto) 0.2 Neut # (Auto) 13.7 H Lymph # (Auto) 0.8 L Wells # (Auto) 0.6 Eos # (Auto) 0.0 Baso # (Auto) 0.0 WBC Differential . Differential Comment Auto diff final Sodium 143 Potassium 3.6 Chloride 109 H Carbon Dioxide 26.2 Anion Gap 8 BUN 30 H Creatinine 2.07 H Estimated GFR 24 L Random Glucose 110 H Lactic Acid Calcium 8.2 L D Total Bilirubin AST ALT Alkaline Phosphatase Total Protein Albumin Lipase Urine Color Yellow Urine Clarity Hazy H Urine pH 6.0 Ur Specific [place] 1.004 Urine Protein 30 H Urine Glucose (UA) Negative Urine Ketones Negative Urine Occult Blood Small H Urine Nitrate Negative Urine Bilirubin Negative Urine Urobilinogen Less than 2 Ur Leukocyte Esterase Large H Urine RBC 1 Urine WBC 60 H Ur Squamous Epith Cells 5 Ur Renal Epithelial Cell <1 Urine Bacteria Occasional H Urine Mucus Few H Micro UA Comment Culture indicated Urine Culture Comments Culture indicated - Imaging Impressions Abdomen/Pelvis CT 09/14/17 00:34 CONCLUSION: 1. Induration of the perinephric fat on the right side and mild prominence of the collecting system with 2 calcified stones in the mid to distal right ureter measuring 3 and 4 mm. 2. Stable left atrophic kidney. 3. Stable small fat-containing left inguinal hernia. Caprini VTE Risk Assessment Caprini VTE Risk Assessment: Moderate/High Risk (score >= 2) Caprini Risk Assessment Model: Point Value = 1 Point Value = 2 Point Value = 3 Point Value = 5 Age 41-60 Minor surgery BMI > 25 kg/m2 Swollen legs Varicose veins or History of unexplained or recurrent spontaneous Oral contraceptives or hormone replacement Sepsis (< 1 month) Serious lung disease, including pneumonia (< 1 month) Abnormal pulmonary function Acute myocardial infarction Congestive heart failure (< 1 month) History of inflammatory bowel disease Medical patient at bed rest Age 61-74 Arthroscopic surgery Major open surgery (> 45 min) Laparoscopic surgery (> 45 min) Malignancy Confined to bed (> 72 hours) Immobilizing plaster cast Central venous access Age >= 75 History of VTE Family history of VTE Factor V Leiden Prothrombin [id number] Lupus anticoagulant Anticardiolipin antibodies Elevated serum homocysteine Heparin-induced thrombocytopenia Other congenital or acquired thrombophilia Stroke (< 1 month) Elective arthroplasty Hip, pelvis, or leg fracture Acute spinal cord injury (< 1 month) Prophylaxis Regimen: Total Risk Factor Score Risk Level Prophylaxis Regimen 0-1 Low Early ambulation 2 Moderate Order ONE of the following: *Sequential Compression Device (SCD) *Heparin 5000 units SQ BID 3-4 Higher Order ONE of the following medications: *Heparin 5000 units SQ TID *Enoxaparin/Lovenox 40 mg SQ daily (WT < 150 kg, CrCl > 30 mL/min) *Enoxaparin/Lovenox 30 mg SQ daily (WT < 150 kg, CrCl > 10-29 mL/min) *Enoxaparin/Lovenox 30 mg SQ BID (WT < 150 kg, CrCl > 30 mL/min) AND/OR *Sequential Compression Device (SCD) 5 or more Highest Order ONE of the following medications: *Heparin 5000 units SQ TID (Preferred with Epidurals) *Enoxaparin/Lovenox 40 mg SQ daily (WT < 150 kg, CrCl > 30 mL/min) *Enoxaparin/Lovenox 30 mg SQ daily (WT < 150 kg, CrCl > 10-29 mL/min) *Enoxaparin/Lovenox 30 mg SQ BID (WT < 150 kg, CrCl > 30 mL/min) AND *Sequential Compression Device (SCD) Assessment and Plan - Assessment (1) Acute pyelonephritis Code(s): N10 - Acute pyelonephritis Status: Acute Plan: This is a 71 year old female patient with a past medical history which includes 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 Patient presents to the ER with complaint of right flank pain for the last several hours. pyelonephritis right nephrolithiasis Abdomen/Pelvis CT 09/14/17 00:34 CONCLUSION: 1. Induration of the perinephric fat on the right side and mild prominence of the collecting system with 2 calcified stones in the mid to distal right ureter measuring 3 and 4 mm. 2. Stable left atrophic kidney. 3. Stable small fat-containing left inguinal hernia ER provider discussed with Urology Dr. Urrutia who will see patient in consultation Consult placed to urology, Dr. Urrutia discussed the case with Dr. Taylor- Plan for conservative management (IV fluids and abx) at this time will continue to monitor IVFs Dilaudid as needed for pain UA reviewed and urine culture pending Rocephin stated in the ER, Patient continues to have fever add zosyn Acetaminophen as needed for fever blood cultures x2 ordered CXR ordered IKER At baseline patient has CKD stage 3 on admission BUN 32, creatinine 2.33, GFR 21 IVFs Abdomen/Pelvis CT 09/14/17 00:34 CONCLUSION: 1. Induration of the perinephric fat on the right side and mild prominence of the collecting system with 2 calcified stones in the mid to distal right ureter measuring 3 and 4 mm. 2. Stable left atrophic kidney. 3. Stable small fat-containing left inguinal hernia Increase IVFs to 125ml/H recheck in AM HTN continue patient's home medications including Telmisartan 80 mg PO daily and diltiazem 300 mg PO daily Hyperlipidemia continue patient's home medication including simvastatin 20 mg Po daily CAD no chest pain at this time s/p stent placement in 2000 continue simvastatin 20 mg PO daily hold aspirin 81 mg PO daily at this time depression continue home sertraline 100 mg PO daily DVT prophylaxis with SCDs <Kurtis Taylor - Last Filed: 09/30/17 10:39> History of Present Illness Primary Care Physician: Maco Lynch MD - Diagnosis (1) Acute pyelonephritis Inpatient Certification: I certify that the inpatient services were ordered in accordance with Medicare regulations governing the order. This includes certification that hospital inpatient services are reasonable and necessary and in the case of services not specified as inpatient-only under 42 CFR 419.22(n), that they are appropriately provided as inpatient services in accordance to with the 2-midnight benchmark under 43 CFR 412.3(e) [facility] - Medical History Medical History: Medical History (Last Reviewed 09/14/17 @ 00:53 by Hattie Lam MD) CAD (coronary artery disease) HTN (hypertension) Hypercholesteremia Kidney disease, chronic, stage III (GFR 30-59 ml/min) Lung cancer - Surgical History Surgical History: Surgical History (Last Reviewed 09/14/17 @ 00:53 by Hattie Lam MD) History of cataract surgery History of heart artery stent History of lung surgery Results - Labs CBC & Chem 7: 09/16/17 05:37 09/20/17 03:12 Caprini VTE Risk Assessment Caprini Risk Assessment Model: Point Value = 1 Point Value = 2 Point Value = 3 Point Value = 5 Age 41-60 Minor surgery BMI > 25 kg/m2 Swollen legs Varicose veins or History of unexplained or recurrent spontaneous Oral contraceptives or hormone replacement Sepsis (< 1 month) Serious lung disease, including pneumonia (< 1 month) Abnormal pulmonary function Acute myocardial infarction Congestive heart failure (< 1 month) History of inflammatory bowel disease Medical patient at bed rest Age 61-74 Arthroscopic surgery Major open surgery (> 45 min) Laparoscopic surgery (> 45 min) Malignancy Confined to bed (> 72 hours) Immobilizing plaster cast Central venous access Age >= 75 History of VTE Family history of VTE Factor V Leiden Prothrombin [id number] Lupus anticoagulant Anticardiolipin antibodies Elevated serum homocysteine Heparin-induced thrombocytopenia Other congenital or acquired thrombophilia Stroke (< 1 month) Elective arthroplasty Hip, pelvis, or leg fracture Acute spinal cord injury (< 1 month) Prophylaxis Regimen: Total Risk Factor Score Risk Level Prophylaxis Regimen 0-1 Low Early ambulation 2 Moderate Order ONE of the following: *Sequential Compression Device (SCD) *Heparin 5000 units SQ BID 3-4 Higher Order ONE of the following medications: *Heparin 5000 units SQ TID *Enoxaparin/Lovenox 40 mg SQ daily (WT < 150 kg, CrCl > 30 mL/min) *Enoxaparin/Lovenox 30 mg SQ daily (WT < 150 kg, CrCl > 10-29 mL/min) *Enoxaparin/Lovenox 30 mg SQ BID (WT < 150 kg, CrCl > 30 mL/min) AND/OR *Sequential Compression Device (SCD) 5 or more Highest Order ONE of the following medications: *Heparin 5000 units SQ TID (Preferred with Epidurals) *Enoxaparin/Lovenox 40 mg SQ daily (WT < 150 kg, CrCl > 30 mL/min) *Enoxaparin/Lovenox 30 mg SQ daily (WT < 150 kg, CrCl > 10-29 mL/min) *Enoxaparin/Lovenox 30 mg SQ BID (WT < 150 kg, CrCl > 30 mL/min) AND *Sequential Compression Device (SCD) Assessment and Plan - Assessment (1) Acute pyelonephritis Code(s): N10 - Acute pyelonephritis Status: Acute - Attending Attestation Patient examined. Assessment and plan formulated with Rupal GARVEY I agree with the above.
--- NOTE | 2017-09-14 09:43 | XR ---
EXAM DATE: 09/14/2017 9:41 AM EDT AGE/SEX: 71 years / Female INDICATIONS: Cough. CLINICAL DATA: This is the patient's initial encounter. Patient reports that signs and symptoms have been present for 1 day and indicates a pain score of 0/10. MEDICAL/SURGICAL HISTORY: . Carcinoma, right breast. . Cardiac stent. Chemo port. Chemo port r emoval. Lobectomy, right. [place] [facility] [place]. . FINDINGS: A single AP view of the chest demonstrates the lungs to be symmetrically aerated without evidence of mass, infiltrate or effusion. The cardiomediastinal contours are unremarkable. Osseous structures a re intact. CONCLUSION: Negative examination. Electronically signed by: Vicki Vazquez MD 09/14/2017 9:42 AM EDT
[2017-09-14] MEDS: Piperacil/Tazo 2.25 GM Premix 50 ML IV.SIG SCH ×3 (11:30→22:45)
[2017-09-14] MEDS: dilTIAZem CD 300 MG Capsule PO SCH (11:30)
[2017-09-14] MEDS: Sertraline 100 MG Tablet PO SCH (11:30)
[2017-09-14] MEDS: Sodium Chloride 0.45 % Inj 1,000 ML IV.CONT SCH ×2 (12:57→21:16)
--- NOTE | 2017-09-14 13:11 | MB ---
cc: RenanJeff Mendoza DO DATE: 09/14/2017 HISTORY OF PRESENT ILLNESS: Ms. Wright is a very pleasant 71-year-old female who presented with 3 days of right-sided flank pain associated with some intermittent fever at times. She denies any prior history of stones. She underwent a CT scan, which demonstrated 2 small stones in her mid right ureter with mild right-sided hydronephrosis with some perinephric stranding. She also does have an atrophic left kidney and per report, her creatinine usually runs around 1.6. PAST MEDICAL HISTORY: Includes right-sided lung cancer, arthritis, heart disease, depression, hypertension, and high cholesterol. No history of stones. PAST SURGICAL HISTORY: Cardiac stent placement, right upper lobe lung resection last year followed by chemotherapy, hysterectomy, left carotid endarterectomy, tubal ligation, and breast biopsy. SOCIAL HISTORY: Former smoker of 1 to 1-1/2 packs a day for 30 years, quit 21 years ago. Denies alcohol use and denies any drug use. FAMILY HISTORY: Noted for heart disease. REVIEW OF SYSTEMS: Notes fever, right-sided flank pain associated with nausea and vomiting. Denies diarrhea or constipation. Denies chest pain, denies shortness of breath. Does note some nausea with vomiting. Denies gait disturbances, bleeding disorders, psychiatric problems or skin lesions. The remaining review of systems were reviewed and were negative. PHYSICAL EXAMINATION: VITAL SIGNS: Heart rate 100.8, respiratory rate 99, blood pressure 137/78, 93% on room air. GENERAL: She is a well-developed, well-nourished, 71-year-old female in no acute distress. HEENT: Normocephalic, atraumatic. Pupils equal, round, regular, reactive to light. Extraocular movements intact. NECK: Supple. HEART: Regular rate and rhythm. LUNGS: Clear. ABDOMEN: Soft. Some right lower quadrant tenderness is noted. BACK: Right CVA tenderness is noted. GENITOURINARY: Normal female external genitalia. EXTREMITIES: Showing no sign of cyanosis, clubbing or edema. NEUROLOGIC: Cranial nerves 2-12 are intact. LABORATORY DATA: White count is 15.2, hemoglobin is 9.6, hematocrit 29.9, platelet count of 219. Sodium 143, potassium 3.6, chloride 109, CO2 of 26.2, BUN of 30; creatinine on admission was 2.3 presently it is 2.0. Glucose is 110. Please note, baseline creatinine is around 1.6 per report. Urinalysis shows 60 white cells, 1 red cell. IMAGING STUDIES: CT scan demonstrates right-sided perinephric stranding with very mild right-sided hydronephrosis with 2 small stones within the mid ureter approximately 2-3 mm in size. There is a left-sided atrophic kidney. ASSESSMENT AND PLAN: This is a 71-year-old female with probable pyelonephritis with 2 small stones in the mid ureter measuring 2-3 mm both in size. Pain presently controlled at the moment and without evidence of nausea or vomiting. Would recommend conservative treatment at this present time with IV fluids and IV antibiotics. Strain urine. Creatinine is improving along with dehydration. We will continue to monitor. If does not improve and creatinine does not continue to trend downward, would recommend a cystoscopy with right double-J stent. We will follow closely with you for now. Thank you for the consult and allowing me to participate in the care of this patient. DO AMRITA Lam/[place] , 12:35 PM , 12:42 PM
[2017-09-15] MEDS: HYDROmorphone PF Inj 2 MG/ML Vial IV.PUSH PRN ×3 (03:44→22:02)
[2017-09-15] MEDS: Piperacil/Tazo 2.25 GM Premix 50 ML IV.SIG SCH ×4 (04:54→23:17)
[2017-09-15] MEDS: Acetaminophen 325 MG Tablet PO PRN ×2 (04:54→16:11)
[2017-09-15] MEDS: Sodium Chloride 0.45 % Inj 1,000 ML IV.CONT SCH ×3 (04:55→23:17)
[2017-09-15 06:18] LABS: Baso % (Auto) 0.5 % (0.0-2.0); Eos # (Auto) 0.1 th/mm3 (0.0-0.4); Eos % (Auto) 0.8 % (0.0-4.0); Hemoglobin 9.7 gm/dL (11.6-15.3); Lymph # (Auto) 0.3 th/mm3 (1.0-4.8); Lymph % (Auto) 3.2 % (9.0-44.0); Mean Corpuscular HGB Conc 32.4 % (32.0-36.0); Mean Corpuscular Hemoglobin 26.1 pg (27.0-34.0); Mean Corpuscular Volume 80.7 fL (80.0-100.0); Mean Platelet Volume 8.2 fL (7.0-11.0); Mono # (Auto) 0.5 th/mm3 (0.0-0.9); Mono % (Auto) 4.6 % (0.0-8.0); Neut % (Auto) 90.9 % (16.0-70.0); Platelet Count 217 th/mm3 (150-450); Red Blood Count 3.71 mil/mm3 (4.00-5.30); Red Cell Distribution Width 17.9 % (11.6-17.2); White Blood Count 9.9 th/mm3 (4.0-11.0)
[2017-09-15 06:47] LABS: Calcium 8.3 mg/dL (8.5-10.1); Carbon Dioxide 24.5 meq/L (21.0-32.0); Potassium 3.7 meq/L (3.5-5.1)
[2017-09-15] MEDS: dilTIAZem CD 300 MG Capsule PO SCH (08:50)
[2017-09-15] MEDS: Sertraline 100 MG Tablet PO SCH (08:50)
--- NOTE | 2017-09-15 09:05 | P.PNURO ---
Subjective Patient symptoms today: Pt had severe right flank pain last night. Now feeling better. Some fever last PM. Objective Vital Signs: Vital Signs 09/14/17 12:00 09/14/17 17:51 09/14/17 18:43 Temperature 98.9 F 100.1 F H 101.5 F H Pulse Rate 74 98 H Respiratory Rate 18 20 Blood Pressure 113/69 143/66 H Pulse Oximetry 90 L 93 L 09/14/17 20:00 09/15/17 00:00 09/15/17 04:00 Temperature 100.9 F H 99.6 F 100.6 F H Pulse Rate 83 71 103 H Respiratory Rate 18 18 18 Blood Pressure 149/67 H 131/60 174/79 H Pulse Oximetry 94 L 94 L 100 09/15/17 08:00 Temperature 98.4 F Pulse Rate 74 Respiratory Rate 18 Blood Pressure 139/64 Pulse Oximetry 96 Intake & Output 09/14/17 09/15/17 09/15/17 18:59 06:59 18:59 Intake Total 507 / 507 2368 / 2368 Balance 507 / 507 2368 / 2368 Weight 77.56 kg Intake: IV 100 / 100 1967 / 1967 02/2 Normal Saline Inj 1,000 ML 1917 / 1917 @ 125 mls/hr IV.CONT .Q8H [facility] Rx#:[id number] Zosyn 2.25 GM Premix 50 ML @ 100 / 100 50 / 50 100 mls/hr IV.SIG Q6H [facility] Rx#: [id number] Oral 400 / 400 Other 407 / 407 Other: Other Intake Source Saline Solution # Voids 3 Date of Last Bowel Movement 09/12/17 09/12/17 Result Diagrams: 09/15/17 05:01 09/15/17 05:01 Imaging: Impressions Chest X-Ray 09/14/17 00:00 CONCLUSION: Negative examination. Medications and IVs: Active Medications Generic Name Dose Route Start Last Admin Trade Name Freq PRN Reason Stop Dose Admin Acetaminophen 650 mg 09/14/17 08:43 09/15/17 04:54 Tylenol PO 650 mg Q6H PRN Administration FEVER>100 Diltiazem HCl 300 mg 09/14/17 09:45 09/15/17 08:50 Cardizem Cd 24hr PO 300 mg DAILY BEBETO Administration Hydromorphone HCl 0.5 mg 09/14/17 02:31 09/15/17 03:44 Dilaudid Pf Inj IV.PUSH 0.5 mg Q4H PRN Administration pain level 3-10 Piperacillin/Tazobactam/Dextrose 50 mls @ 100 mls/hr 09/14/17 11:00 09/15/17 04:54 Zosyn 2.25 Gm Premix IV.SIG 100 mls/hr Q6H BEBETO Administration Sodium Chloride 1,000 mls @ 125 mls/hr 09/14/17 12:30 09/15/17 04:55 1/2 Normal Saline Inj IV.CONT 125 mls/hr .Q8H BEBETO Administration Ondansetron HCl 4 mg 09/14/17 02:27 09/15/17 03:52 Zofran Inj IV.PUSH 4 mg Q6H PRN Administration nausea, vomiting Pravastatin Sodium 40 mg 09/14/17 18:00 09/14/17 17:48 Pravachol PO 40 mg QPM BEBETO Administration Sertraline HCl 100 mg 09/14/17 09:45 09/15/17 08:50 Zoloft PO 100 mg DAILY BEBETO Administration Sodium Chloride 2 ml 09/13/17 22:37 09/14/17 08:17 Ns Flush IV.FLUSH 2 ml PRN PRN Administration FLUSH AFTER USING IV ACCESS Objective Remarks: Abd:soft,nt,nd Mild right sided pain. Assessment and Plan - Plan 71 y.o female with right flank pain and pyelo Will plan for cysto with right JJ stent tomorrow.
--- NOTE | 2017-09-15 09:14 | P.PNIM ---
Subjective Interval history: Follow up: pyelonephritis, right nephrolithiasis and IKER Patient had T max of 101.5 continues to c/o pain through the night last night Plan for stent place tomorrow Physical Exam Vital signs: Vital Signs 09/14/17 12:00 09/14/17 17:51 09/14/17 18:43 Temperature 98.9 F 100.1 F H 101.5 F H Pulse Rate 74 98 H Respiratory Rate 18 20 Blood Pressure 113/69 143/66 H Pulse Oximetry 90 L 93 L 09/14/17 20:00 09/15/17 00:00 09/15/17 04:00 Temperature 100.9 F H 99.6 F 100.6 F H Pulse Rate 83 71 103 H Respiratory Rate 18 18 18 Blood Pressure 149/67 H 131/60 174/79 H Pulse Oximetry 94 L 94 L 100 09/15/17 08:00 Temperature 98.4 F Pulse Rate 74 Respiratory Rate 18 Blood Pressure 139/64 Pulse Oximetry 96 Intake & Output 09/14/17 09/15/17 09/15/17 18:59 06:59 18:59 Intake Total 507 / 507 2368 / 2368 Balance 507 / 507 2368 / 2368 Weight 77.56 kg Intake: IV 100 / 100 1967 / 1967 1/2 Normal Saline Inj 1,000 ML 1917 / 1917 @ 125 mls/hr IV.CONT .Q8H [facility] Rx#:[id number] Zosyn 2.25 GM Premix 50 ML @ 100 / 100 50 / 50 100 mls/hr IV.SIG Q6H [facility] Rx#: [id number] Oral 400 / 400 Other 407 / 407 Other: Other Intake Source Saline Solution # Voids 3 Date of Last Bowel Movement 09/12/17 09/12/17 Narrative: GENERAL: This is a well-nourished, well-developed patient, in no apparent distress. CARDIOVASCULAR: Regular rate and rhythm RESPIRATORY: Clear to auscultation. Breath sounds equal bilaterally. GASTROINTESTINAL: Abdomen soft, non-tender, nondistended. Normal active bowel sounds GENITOURINARY: right CVA tenderness MUSCULOSKELETAL: Extremities without clubbing, cyanosis, or edema. NEURO: Alert & Oriented x4 to person, place, time, situation. Moves all ext x4 Results - Labs CBC & Chem 7: 09/15/17 05:01 09/15/17 05:01 Laboratory Results - last 24 hr 09/15/17 09/15/17 05:01 05:01 WBC 9.9 RBC 3.71 L Hgb 9.7 L Hct 30.0 L MCV 80.7 MCH 26.1 L MCHC 32.4 RDW 17.9 H Plt Count 217 MPV 8.2 Neut % (Auto) 90.9 H Lymph % (Auto) 3.2 L [place] % (Auto) 4.6 Eos % (Auto) 0.8 Baso % (Auto) 0.5 Neut # (Auto) 9.0 H Lymph # (Auto) 0.3 L [place] # (Auto) 0.5 Eos # (Auto) 0.1 Baso # (Auto) 0.0 WBC Differential . Differential Comment Auto diff final Sodium 141 Potassium 3.7 Chloride 109 H Carbon Dioxide 24.5 Anion Gap 8 BUN 26 H Creatinine 2.04 H Estimated GFR 24 L Random Glucose 120 H Calcium 8.3 L - Imaging Impressions Chest X-Ray 09/14/17 00:00 CONCLUSION: Negative examination. 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 Patient presents to the ER with complaint of right flank pain for the last several hours. pyelonephritis right nephrolithiasis Abdomen/Pelvis CT 09/14/17 00:34 CONCLUSION: 1. Induration of the perinephric fat on the right side and mild prominence of the collecting system with 2 calcified stones in the mid to distal right ureter measuring 3 and 4 mm. 2. Stable left atrophic kidney. 3. Stable small fat-containing left inguinal hernia ER provider discussed with Urology Dr. Urrutia who will see patient in consultation Consult placed to urology, Dr. Urrutia discussed the case with Dr. Taylor- Plan for conservative management (IV fluids and abx) at this time will continue to monitor IVFs Dilaudid as needed for pain UA reviewed and urine culture pending WBC on admission 16.7 -> 15.2 -> 9.9 (09/15) T Max 101.5 Rocephin stated in the ER, Patient continues to have fever continue zosyn Acetaminophen as needed for fever blood cultures x2 pending CXR reviewed and reveals: negative exam Plan for stent placement with Dr. Urrutia (09/16), NPO after midnight IKER At baseline patient has CKD stage 3 on admission BUN 32, creatinine 2.33, GFR 21 -> (09/15) BUN 26, creatinine 2.04, GFR 24 Abdomen/Pelvis CT 09/14/17 00:34 CONCLUSION: 1. Induration of the perinephric fat on the right side and mild prominence of the collecting system with 2 calcified stones in the mid to distal right ureter measuring 3 and 4 mm. 2. Stable left atrophic kidney. 3. Stable small fat-containing left inguinal hernia VFs to 125ml/H recheck in AM HTN continue patient's home medications including Telmisartan 80 mg PO daily and diltiazem 300 mg PO daily Hyperlipidemia continue patient's home medication including simvastatin 20 mg Po daily CAD no chest pain at this time s/p stent placement in 2000 continue simvastatin 20 mg PO daily hold aspirin 81 mg PO daily at this time depression continue home sertraline 100 mg PO daily DVT prophylaxis with SCDs The exam, history, and the medical decision-making described in the above note were completed with the assistance of the mid-level provider. I reviewed and agree with the findings presented. I attest that I had a [id number] encounter with the patient on the same day, and personally performed and documented my assessment and findings in the medical record.
[2017-09-15] MEDS: Senna/Docusate Sodium 8.6/50 MG Tablet PO SCH (22:02)
[2017-09-16] MEDS ORDERED: Chlorhexidine Gluconate 2% 1 Pack (2 Cloths) TOPICAL SCH (00:45)
[2017-09-16] MEDS ORDERED: Sodium Chlor 0.9% Inj 500 ML IV.SIG SCH (01:00)
[2017-09-16] MEDS: Piperacil/Tazo 2.25 GM Premix 50 ML IV.SIG SCH (06:03)
[2017-09-16] MEDS: Sodium Chloride 0.45 % Inj 1,000 ML IV.CONT SCH (06:06)
[2017-09-16 06:42] LABS: Baso % (Auto) 0.4 % (0.0-2.0); Eos % (Auto) 0.1 % (0.0-4.0); Hematocrit 32.5 % (35.0-46.0); Hemoglobin 10.6 gm/dL (11.6-15.3); Lymph # (Auto) 0.5 th/mm3 (1.0-4.8); Lymph % (Auto) 4.4 % (9.0-44.0); Mean Corpuscular HGB Conc 32.6 % (32.0-36.0); Mean Corpuscular Hemoglobin 26.4 pg (27.0-34.0); Mean Corpuscular Volume 80.9 fL (80.0-100.0); Mean Platelet Volume 8.2 fL (7.0-11.0); Mono # (Auto) 0.9 th/mm3 (0.0-0.9); Mono % (Auto) 8.1 % (0.0-8.0); Platelet Count 215 th/mm3 (150-450); Red Blood Count 4.02 mil/mm3 (4.00-5.30); Red Cell Distribution Width 18.3 % (11.6-17.2); White Blood Count 11.5 th/mm3 (4.0-11.0)
[2017-09-16 07:00] LABS: Calcium 8.7 mg/dL (8.5-10.1); Carbon Dioxide 20.1 meq/L (21.0-32.0); Potassium 3.4 meq/L (3.5-5.1)
[2017-09-16 08:03] LABS: Lymphocytes 1 % (9-44); Metamyelocytes 1 % (0-1); Monocytes 5 % (0-8); Toxic Granulation 1+; Toxic Vacuolation Present
[2017-09-16 08:04] LABS: Platelet Estimate Normal (Normal); Platelet Morphology Clumped (Normal)
[2017-09-16] MEDS: dilTIAZem CD 300 MG Capsule PO SCH (08:10)
[2017-09-16] MEDS: Metoprolol Tartrate 25 MG Tablet PO SCH (08:10)
[2017-09-16] MEDS ORDERED: Aspirin 325 MG Tablet ONE (08:27)
--- NOTE | 2017-09-16 08:55 | P.PNURO ---
Subjective Patient symptoms today: Pt seen and examined. Pt is wheezing, in A-fib with substernal CP this AM. Cysto with right JJ stent insertion is cancelled for today. Objective Vital Signs: Vital Signs 09/15/17 12:00 09/15/17 16:00 09/15/17 20:00 Temperature 98.9 F 100.6 F H 99.4 F Pulse Rate 79 91 H 85 Respiratory Rate 18 18 18 Blood Pressure 153/70 H 125/69 177/74 H Pulse Oximetry 96 92 L 92 L 09/16/17 00:00 09/16/17 04:00 09/16/17 08:17 Temperature 99.3 F 99.1 F Pulse Rate 97 H 102 H 115 H Respiratory Rate 18 20 22 Blood Pressure 180/76 H 146/84 H Pulse Oximetry 92 L 94 L 96 09/16/17 08:22 Temperature Pulse Rate 112 H Respiratory Rate 22 Blood Pressure Pulse Oximetry 97 Intake & Output 09/15/17 09/16/17 09/16/17 18:59 06:59 18:59 Intake Total 1100 / 1100 2049 Output Total 800 / 800 Balance 1100 / 1100 1250 / 1250 Intake: IV 1100 / 1100 2049 1/2 Normal Saline Inj 1,000 ML 1000 / 1000 2000 / 2000 @ 125 mls/hr IV.CONT .Q8H [facility] Rx#:[id number] Zosyn 2.25 GM Premix 50 ML @ 100 / 100 50 / 50 100 mls/hr IV.SIG Q6H [facility] Rx#: [id number] Output: Urine 800 / 800 Other: Date of Last Bowel Movement 09/13/17 09/15/17 # Bowel Movements 2 Result Diagrams: 09/16/17 05:37 09/16/17 05:37 Medications and IVs: Active Medications Generic Name Dose Route Start Last Admin Trade Name Freq PRN Reason Stop Dose Admin Acetaminophen 650 mg 09/14/17 08:43 09/15/17 16:11 Tylenol PO 650 mg Q6H PRN Administration FEVER>100 Al Hydroxide/Mg Hydroxide 30 ml 09/15/17 11:49 Milk Of Magnesia Liq PO DAILY PRN MILD CONSTIPATION Albuterol 2.5 mg 09/16/17 09:00 Albuterol Neb (Tenzin) NEB 09/16/17 09:01 ONCE ONE Chlorhexidine Gluconate 3 pack 09/16/17 00:45 09/16/17 08:09 Chlorhexidine 2% Cloth TOPICAL 09/19/17 00:36 Not Given [employer] [facility] Diltiazem HCl 300 mg 09/14/17 09:45 09/15/17 08:50 Cardizem Cd 24hr PO 300 mg DAILY [facility]ZIN Administration Hydromorphone HCl 0.5 mg 09/14/17 02:31 09/15/17 22:02 Dilaudid Pf Inj IV.PUSH 0.5 mg Q4H PRN Administration pain level 3-10 Piperacillin/Tazobactam/Dextrose 50 mls @ 100 mls/hr 09/14/17 11:00 09/16/17 06:03 Zosyn 2.25 Gm Premix IV.SIG 100 mls/hr Q6H [facility] Administration Sodium Chloride 1,000 mls @ 125 mls/hr 09/14/17 12:30 09/16/17 06:06 1/2 Normal Saline Inj IV.CONT 125 mls/hr .Q8H [facility] Administration Lactated Ringer's 1,000 mls @ 30 mls/hr 09/16/17 00:45 09/16/17 08:09 Lr 1000 Ml Inj IV.SIG 09/19/17 00:36 30 mls/hr .Q24H [facility] Administration Sodium Chloride 500 mls @ 30 mls/hr 09/16/17 01:00 Ns Inj IV.SIG 09/19/17 00:36 .Q10H [facility] Metoprolol Tartrate 25 mg 09/16/17 00:45 09/16/17 08:10 Lopressor PO 09/19/17 00:36 Not Given [employer] [facility] Ondansetron HCl 4 mg 09/14/17 02:27 09/15/17 03:52 Zofran Inj IV.PUSH 4 mg Q6H PRN Administration nausea, vomiting Povidone Iodine 1 applicatio 09/16/17 00:45 09/16/17 08:09 Betadine 5% Antisepsis Kit EACH NARE 09/19/17 00:36 Not Given [employer] [facility] Pravastatin Sodium 40 mg 09/14/17 18:00 09/15/17 17:23 Pravachol PO 40 mg QPM [facility] Administration Senna/Docusate Sodium 2 tab 09/15/17 21:00 09/15/17 22:02 Maria Luisa-Colace PO Not Given BID [facility] Sertraline HCl 100 mg 09/14/17 09:45 09/15/17 08:50 Zoloft PO 100 mg DAILY TENZIN Administration Sodium Chloride 2 ml 09/13/17 22:37 09/14/17 08:17 Ns Flush IV.FLUSH 2 ml PRN PRN Administration FLUSH AFTER USING IV ACCESS Objective Remarks: Abd:soft,nt,nd Mild right sided pain. 09/16 Chest: irregular Lungs: wheezing Abd:soft,nt, mild right sided tenderness Assessment and Plan - Plan 71 y.o female with right flank pain and pyelo Will plan for cysto with right JJ stent tomorrow. 09/16 71 y.o female with right mid ureteral stone with atrophic left kidney Creatinine down to 1.7 today. Will hold off on stent insertion due to wheezing, CP and a-fib. Will await cardiology consultation.
--- NOTE | 2017-09-16 09:07 | XR ---
EXAM DATE: 09/16/2017 8:53 AM EDT AGE/SEX: 71 years / Female INDICATIONS: Short of breath. CLINICAL DATA: This is the patient's initial encounter. Patient reports that signs and symptoms have been present for 1 day and indicates a pain score of 0/10. MEDICAL/SURGICAL HISTORY: Carcinoma, lung. Congestive heart failure. Carcinoma, right breasT . Cardiac stent. Chemo port. Chemo port removal. Lobectomy, right. COMPARISON: [facility] [place] 1[place] S[place], [place]/14/2017. . FINDINGS: A single AP view of the chest demonstrates some basilar density, probably atelectasis and overlying s oft tissues. No effusion. No pneumothorax. Heart size upper limits normal. CONCLUSION: Basilar density increased from September 14. Differential diagnosis includes atelectasis, or early infilt rate on the left. Electronically signed by: Ralph Rivera MD 09/16/2017 9:05 AM EDT
[2017-09-16] MEDS ORDERED: Aspirin 325 MG Tablet PO ONE (10:00)
[2017-09-16] MEDS: Metoprolol Inj 5 MG/5 ML Vial IV.PUSH PRN ×3 (12:39→13:15)
--- NOTE | 2017-09-16 13:35 | P.PNIM ---
Subjective Interval history: procedure held wheezing and tachycardic. Physical Exam Vital signs: Vital Signs 09/15/17 16:00 09/15/17 20:00 09/16/17 00:00 Temperature 100.6 F H 99.4 F 99.3 F Pulse Rate 91 H 85 97 H Respiratory Rate 18 18 18 Blood Pressure 125/69 177/74 H 180/76 H Pulse Oximetry 92 L 92 L 92 L 09/16/17 04:00 09/16/17 07:30 09/16/17 08:17 Temperature 99.1 F 99.4 F Pulse Rate 102 H 108 H 115 H Respiratory Rate 20 24 22 Blood Pressure 146/84 H 218/96 H Pulse Oximetry 94 L 94 L 96 09/16/17 08:22 09/16/17 09:15 09/16/17 09:34 Temperature Pulse Rate 112 H 120 H 112 H Respiratory Rate 22 24 20 Blood Pressure Pulse Oximetry 97 98 09/16/17 09:51 09/16/17 10:17 09/16/17 12:00 Temperature 98.7 F Pulse Rate 102 H 95 H 96 H Respiratory Rate 20 20 18 Blood Pressure 155/82 H 167/92 H Pulse Oximetry 98 97 96 Intake & Output 09/15/17 09/16/17 09/16/17 18:59 06:59 18:59 Intake Total 1100 / 1100 2049 / 2049 Output Total 800 / 800 Balance 1100 / 1100 1250 / 1250 Intake: IV 1100 / 1100 2049 1/2 Normal Saline Inj 1,000 ML 1000 / 1000 2000 / 2000 @ 125 mls/hr IV.CONT .Q8H [facility] Rx#:[id number] Zosyn 2.25 GM Premix 50 ML @ 100 / 100 50 / 50 100 mls/hr IV.SIG Q6H [facility] Rx#: [id number] Output: Urine 800 / 800 Other: # Voids 1 Date of Last Bowel Movement 09/13/17 09/15/17 09/16/17 # Bowel Movements 2 heart irreg lung few basilar crackles abd s/nt ext no edema bates. yellow urine. 1000cc. - Urinary Catheter Management Indwelling Urethral Catheter Cath placed during this visit: yes Reason for continuing: Other continuation reason Insertion date: 09/16/17 Insertion time: 09:38 Results - Labs CBC & Chem 7: 09/16/17 05:37 09/16/17 05:37 Laboratory Results - last 24 hr 09/16/17 09/16/17 05:37 05:37 WBC 11.5 H RBC 4.02 Hgb 10.6 L Hct 32.5 L MCV 80.9 MCH 26.4 L MCHC 32.6 RDW 18.3 H Plt Count 215 MPV 8.2 Prelim Diff (Auto) Slide review pending Neut % (Auto) 87.0 H Lymph % (Auto) 4.4 L [place] % (Auto) 8.1 H Eos % (Auto) 0.1 Baso % (Auto) 0.4 Neut # (Auto) 10.0 H Lymph # (Auto) 0.5 L [place] # (Auto) 0.9 Eos # (Auto) 0.0 Baso # (Auto) 0.0 WBC Differential Manual diff final Seg Neuts % (Manual) 88 H Band Neuts % (Manual) 5 Lymphocytes % (Manual) 1 L Monocytes % (Manual) 5 Metamyelocytes % (Man) 1 Abs Neuts (Manual) 10.8 H Differential Comment . Toxic Granulation 1+ H Toxic Vacuolation Present H Platelet Estimate Normal Platelet Morphology Clumped H Sodium 140 Potassium 3.4 L Chloride 106 Carbon Dioxide 20.1 L Anion Gap 14 BUN 18 Creatinine 1.71 H Estimated GFR 29 L Random Glucose 112 H Calcium 8.7 Microbiology 09/14/17 13:00 Blood - Peripheral Aerobic Blood Culture - Preliminary No growth in 2 days 09/14/17 13:00 Blood - Peripheral Anaerobic Blood Culture - Preliminary No growth in 2 days 09/14/17 13:05 Blood - Peripheral Aerobic Blood Culture - Preliminary No growth in 2 days 09/14/17 13:05 Blood - Peripheral Anaerobic Blood Culture - Preliminary No growth in 2 days 09/14/17 00:30 Clean Catch Urine Urine Culture - Final Escherichia coli - Imaging Impressions Chest X-Ray 09/16/17 00:00 CONCLUSION: Basilar density increased from September 14. Differential diagnosis includes atelectasis, or early infiltrate on the left. 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 Patient presents to the ER with complaint of right flank pain for the last several hours. pyelonephritis. e. coli right nephrolithiasis Abdomen/Pelvis CT 09/14/17 00:34 CONCLUSION: 1. Induration of the perinephric fat on the right side and mild prominence of the collecting system with 2 calcified stones in the mid to distal right ureter measuring 3 and 4 mm. 2. Stable left atrophic kidney. 3. Stable small fat-containing left inguinal hernia ER provider discussed with Urology Dr. Urrutia who will see patient in consultation Consult placed to urology, Dr. Urrutia discussed the case with Dr. Taylor- Plan for conservative management (IV fluids and abx) at this time will continue to monitor IVFs pt went for stent placement on 09/16. cancelled due to improved cr, sob/wheezing/ volume overloaded and afib/rvr bates. iv lasix. improved resp status. nebs prn. iv lopressor and cont home ccb. tele and moved to cardiac unit. stop ivf. rocephin for uti. IKER At baseline patient has CKD stage 3 on admission BUN 32, creatinine 2.33, GFR 21 -> (09/15) BUN 26, creatinine 2.04, GFR 24 Abdomen/Pelvis CT 09/14/17 00:34 CONCLUSION: 1. Induration of the perinephric fat on the right side and mild prominence of the collecting system with 2 calcified stones in the mid to distal right ureter measuring 3 and 4 mm. 2. Stable left atrophic kidney. 3. Stable small fat-containing left inguinal hernia HTN continue patient's home medications including Telmisartan 80 mg PO daily and diltiazem 300 mg PO daily Hyperlipidemia continue patient's home medication including simvastatin 20 mg Po daily CAD no chest pain at this time s/p stent placement in 2000 continue simvastatin 20 mg PO daily aspirin 81 mg PO daily at this time depression continue home sertraline 100 mg PO daily
[2017-09-16] MEDS: Sertraline 100 MG Tablet PO SCH (14:49)
[2017-09-16] MEDS ORDERED: dilTIAZem 30 MG Tablet PO ONE ×2 (17:06→21:00)
[2017-09-16] MEDS ORDERED: Furosemide 20 MG Tablet PO ONE (17:25)
[2017-09-16] MEDS: Metoprolol Inj 5 MG/5 ML Vial IV.PUSH SCH (17:34)
[2017-09-16] MEDS ORDERED: dilTIAZem 60 MG Tablet PO SCH (18:00)
[2017-09-16 19:41] LABS: Calcium 9.2 mg/dL (8.5-10.1); Carbon Dioxide 24.1 meq/L (21.0-32.0)
[2017-09-16 19:53] LABS: Potassium 2.9 meq/L (3.5-5.1)
[2017-09-16] MEDS: HYDROmorphone PF Inj 2 MG/ML Vial IV.PUSH PRN (19:55)
[2017-09-16] MEDS: Senna/Docusate Sodium 8.6/50 MG Tablet PO SCH (20:50)
[2017-09-16] MEDS ORDERED: dilTIAZem 60 MG Tablet PO ONE (21:00)
--- NOTE | 2017-09-16 23:05 | ECG ---
Date Performed: 09/16/2017 Time Performed: 08:36:04 PTAGE: 71 years EKG: ATRIAL FIBRILLATION WITH RAPID VENTRICULAR RESPONSE ABNORMAL RHYTHM ECG INTERPRETATION BASE D ON A DEFAULT AGE OF 40 YEARS PREVIOUS TRACING : 09/16/2017 07.19 Since the previous tracing, no significant change not ed DOCTOR: Andrea Melendez Interpretating Date/Time 09/16/2017 23:04:27
--- NOTE | 2017-09-16 23:09 | ECG ---
Date Performed: 09/16/2017 Time Performed: 07:19:12 PTAGE: 71 years EKG: ATRIAL FIBRILLATION WITH RAPID VENTRICULAR RESPONSE NONSPECIFIC T-WAVE ABNORMALITY ABNORMAL RHYTHM ECG PREVIOUS TRACING : 08/16/2016 15.26 Since the previous tracing, no significant change noted DOCTOR: Andrea Melendez Interpretating Date/Time 09/16/2017 23:08:22
[2017-09-17] MEDS ORDERED: dilTIAZem 60 MG Tablet PO SCH
[2017-09-17] MEDS: Metoprolol Inj 5 MG/5 ML Vial IV.PUSH SCH ×2 (01:03→06:19)
[2017-09-17 07:18] LABS: Calcium 9.1 mg/dL (8.5-10.1); Carbon Dioxide 27.3 meq/L (21.0-32.0)
[2017-09-17 07:42] LABS: Potassium 2.9 meq/L (3.5-5.1)
--- NOTE | 2017-09-17 08:50 | P.PNURO ---
Subjective Patient symptoms today: Pt seen and examined. Feeling much better today. HR controlled and breathing has improved. No more right flank pain after aggressive diuresis. Creatinine down to 1.65 Objective Vital Signs: Vital Signs 09/16/17 09:15 09/16/17 09:34 09/16/17 09:51 Temperature Pulse Rate 120 H 112 H 102 H Respiratory Rate 24 20 20 Blood Pressure Pulse Oximetry 98 98 09/16/17 10:17 09/16/17 12:00 09/16/17 15:00 Temperature 98.7 F 98.9 F Pulse Rate 95 H 96 H 132 H Respiratory Rate 20 18 20 Blood Pressure 155/82 H 167/92 H 146/78 H Pulse Oximetry 97 96 92 L 09/16/17 16:00 09/16/17 19:00 09/16/17 19:10 Temperature 98.7 F 99.6 F Pulse Rate 125 H 129 H 129 H Respiratory Rate 20 24 Blood Pressure 151/70 H 136/84 Pulse Oximetry 92 L 93 L 09/16/17 23:00 09/17/17 00:33 09/17/17 02:00 Temperature 99.8 F H Pulse Rate 91 H 91 H 87 Respiratory Rate 24 16 Blood Pressure 183/76 H Pulse Oximetry 94 L 09/17/17 03:00 09/17/17 04:00 09/17/17 05:00 Temperature 99 F Pulse Rate 88 86 89 Respiratory Rate Blood Pressure 158/71 H Pulse Oximetry 94 L 09/17/17 06:00 09/17/17 07:00 09/17/17 07:52 Temperature 99.0 F Pulse Rate 86 89 84 Respiratory Rate 20 16 Blood Pressure 162/90 H Pulse Oximetry 94 L 93 L Intake & Output 09/16/17 09/17/17 09/17/17 18:59 06:59 18:59 Intake Total 2200 / 2200 720 / 720 Output Total 3150 / 3150 Balance 2200 / 2200 -2430 / -2430 Intake: Oral 2200 / 2200 720 / 720 Output: Urine Amount (Catheter) 3150 / 3150 Indwelling Urethral Catheter 3150 / 3150 Other: # Voids 1 Date of Last Bowel Movement 09/16/17 09/17/17 09/16/17 Result Diagrams: 09/16/17 05:37 09/17/17 06:16 Imaging: Impressions Chest X-Ray 09/16/17 00:00 CONCLUSION: Basilar density increased from September 14. Differential diagnosis includes atelectasis, or early infiltrate on the left. Medications and IVs: Active Medications Generic Name Dose Route Start Last Admin Trade Name Freq PRN Reason Stop Dose Admin Acetaminophen 650 mg 09/14/17 08:43 09/15/17 16:11 Tylenol PO 650 mg Q6H PRN Administration FEVER>100 Al Hydroxide/Mg Hydroxide 30 ml 09/15/17 11:49 Milk Of Magnesia Liq PO DAILY PRN MILD CONSTIPATION Albuterol 1 ampul 09/16/17 13:36 Duoneb Neb (Prn) NEB Q4HR NEB PRN sob Albuterol 1 ampul 09/16/17 17:30 09/17/17 07:51 Duoneb Neb (Tenzin) NEB 1 ampul Q4HR NEB [facility]ZIN Administration Aspirin 325 mg 09/17/17 09:00 Aspirin PO DAILY [facility] Chlorhexidine Gluconate 3 pack 09/16/17 00:45 09/16/17 08:09 Chlorhexidine 2% Cloth TOPICAL 09/19/17 00:36 Not Given [employer] [facility] Diltiazem HCl 90 mg 09/17/17 06:00 09/17/17 06:18 Cardizem PO 90 mg Q6HR [facility] Administration Hydromorphone HCl 0.5 mg 09/14/17 02:31 09/16/17 19:55 Dilaudid Pf Inj IV.PUSH 0.5 mg Q4H PRN Administration pain level 3-10 Lactated Ringer's 1,000 mls @ 30 mls/hr 09/16/17 00:45 09/16/17 08:09 Lr 1000 Ml Inj IV.SIG 09/19/17 00:36 30 mls/hr .Q24H [facility] Administration Sodium Chloride 500 mls @ 30 mls/hr 09/16/17 01:00 Ns Inj IV.SIG 09/19/17 00:36 .Q10H [facility] Ceftriaxone Sodium 1,000 mg/ 100 mls @ 200 mls/hr 09/16/17 10:00 Sodium Chloride IV.SIG Q24H [facility] Metoprolol Tartrate 25 mg 09/16/17 00:45 09/16/17 08:10 Lopressor PO 09/19/17 00:36 Not Given [employer] [facility] Metoprolol Tartrate 5 mg 09/16/17 18:00 09/17/17 06:19 Lopressor Inj IV.PUSH 5 mg Q6H [facility] Administration Ondansetron HCl 4 mg 09/14/17 02:27 09/15/17 03:52 Zofran Inj IV.PUSH 4 mg Q6H PRN Administration nausea, vomiting Povidone Iodine 1 applicatio 09/16/17 00:45 09/16/17 08:09 Betadine 5% Antisepsis Kit EACH NARE 09/19/17 00:36 Not Given [employer] [facility] Pravastatin Sodium 40 mg 09/14/17 18:00 09/16/17 18:15 Pravachol PO 40 mg QPM [facility] Administration Senna/Docusate Sodium 2 tab 09/15/17 21:00 09/16/17 20:50 Maria Luisa-Colace PO 2 tab BID [facility] Administration Sertraline HCl 100 mg 09/14/17 09:45 09/16/17 14:49 Zoloft PO 100 mg DAILY [facility]IN Administration Sodium Chloride 2 ml 09/13/17 22:37 09/14/17 08:17 Ns Flush IV.FLUSH 2 ml PRN PRN Administration FLUSH AFTER USING IV ACCESS Objective Remarks: Abd:soft,nt,nd Mild right sided pain. 09/16 Chest: irregular Lungs: wheezing Abd:soft,nt, mild right sided tenderness 09/17 Abd:soft,nt,nd Neg CVAT [place] with clear urine Assessment and Plan - Plan 71 y.o female with right flank pain and pyelo Will plan for cysto with right JJ stent tomorrow. 09/16 71 y.o female with right mid ureteral stone with atrophic left kidney Creatinine down to 1.7 today. Will hold off on stent insertion due to wheezing, CP and a-fib. Will await cardiology consultation. 09/17 71 y.o female with h/o right mid ureteral stone with SOB and A-fib No more right CVAT. Creatinine down to 1.65 Will continue to monitor for now and will not proceed with cysto and right JJ stent at this time unless symptoms return or ARF does not continue to improve.
[2017-09-17] MEDS: Senna/Docusate Sodium 8.6/50 MG Tablet PO SCH ×3 (08:54→21:34)
[2017-09-17] MEDS: Sertraline 100 MG Tablet PO SCH (08:54)
[2017-09-17] MEDS: Aspirin 325 MG Tablet PO SCH (08:55)
--- NOTE | 2017-09-17 09:08 | P.PNIM ---
Subjective Interval history: more comfortable. confused overnight but better. Physical Exam Vital signs: Vital Signs 09/16/17 09:15 09/16/17 09:34 09/16/17 09:51 Temperature Pulse Rate 120 H 112 H 102 H Respiratory Rate 24 20 20 Blood Pressure Pulse Oximetry 98 98 09/16/17 10:17 09/16/17 12:00 09/16/17 15:00 Temperature 98.7 F 98.9 F Pulse Rate 95 H 96 H 132 H Respiratory Rate 20 18 20 Blood Pressure 155/82 H 167/92 H 146/78 H Pulse Oximetry 97 96 92 L 09/16/17 16:00 09/16/17 19:00 09/16/17 19:10 Temperature 98.7 F 99.6 F Pulse Rate 125 H 129 H 129 H Respiratory Rate 20 24 Blood Pressure 151/70 H 136/84 Pulse Oximetry 92 L 93 L 09/16/17 23:00 09/17/17 00:33 09/17/17 02:00 Temperature 99.8 F H Pulse Rate 91 H 91 H 87 Respiratory Rate 24 16 Blood Pressure 183/76 H Pulse Oximetry 94 L 09/17/17 03:00 09/17/17 04:00 09/17/17 05:00 Temperature 99 F Pulse Rate 88 86 89 Respiratory Rate Blood Pressure 158/71 H Pulse Oximetry 94 L 09/17/17 06:00 09/17/17 07:00 09/17/17 07:52 Temperature 99.0 F Pulse Rate 86 89 84 Respiratory Rate 20 16 Blood Pressure 162/90 H Pulse Oximetry 94 L 93 L 09/17/17 08:00 Temperature Pulse Rate 71 Respiratory Rate Blood Pressure Pulse Oximetry Intake & Output 09/16/17 09/17/17 09/17/17 18:59 06:59 18:59 Intake Total 2200 / 2200 720 / 720 Output Total 3150 / 3150 Balance 2200 / 2200 -2430 / -2430 Intake: Oral 2200 / 2200 720 / 720 Output: Urine Amount (Catheter) 3150 / 3150 Indwelling Urethral Catheter 3150 / 3150 Other: # Voids 1 Date of Last Bowel Movement 09/16/17 09/17/17 09/16/17 heart reg. sinus lung wheeze fausto abd s/nt ext no edema bates - Urinary Catheter Management Indwelling Urethral Catheter Cath placed during this visit: yes Reason for continuing: Acute urinary retention Insertion date: 09/16/17 Insertion time: 09:38 Results - Labs CBC & Chem 7: 09/16/17 05:37 09/17/17 06:16 Laboratory Results - last 24 hr 09/16/17 09/16/17 09/17/17 18:03 18:05 06:16 Sodium 141 138 Potassium 2.9 L* 2.9 L* Chloride 103 99 Carbon Dioxide 24.1 27.3 Anion Gap 14 12 BUN 18 18 Creatinine 1.82 H 1.65 H Estimated GFR 27 L 31 L Random Glucose 163 H 106 Calcium 9.2 9.1 Troponin I 0.19 H Microbiology 09/14/17 13:00 Blood - Peripheral Aerobic Blood Culture - Preliminary No growth in 2 days 09/14/17 13:00 Blood - Peripheral Anaerobic Blood Culture - Preliminary No growth in 2 days 09/14/17 13:05 Blood - Peripheral Aerobic Blood Culture - Preliminary No growth in 2 days 09/14/17 13:05 Blood - Peripheral Anaerobic Blood Culture - Preliminary No growth in 2 days 09/14/17 00:30 Clean Catch Urine Urine Culture - Final Escherichia coli - Imaging Impressions Chest X-Ray 09/16/17 00:00 CONCLUSION: Basilar density increased from September 14. Differential diagnosis includes atelectasis, or early infiltrate on the left. 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 Patient presents to the ER with complaint of right flank pain for the last several hours. pyelonephritis. e. coli right nephrolithiasis Abdomen/Pelvis CT 09/14/17 00:34 CONCLUSION: 1. Induration of the perinephric fat on the right side and mild prominence of the collecting system with 2 calcified stones in the mid to distal right ureter measuring 3 and 4 mm. 2. Stable left atrophic kidney. 3. Stable small fat-containing left inguinal hernia ER provider discussed with Urology Dr. Urrutia who will see patient in consultation Consult placed to urology, Dr. Urrutia discussed the case with Dr. Taylor- Plan for conservative management (IV fluids and abx) at this time will continue to monito -pt went for stent placement on 09/16. cancelled due to improved cr, sob/wheezing/ volume overloaded and afib/rvr. on 09/16 pt recieved dosing of iv and po cardizem/lopressor finally converting back to sinus rhythm cont diltiizem and convert to cardizem cd soon. cont nebs. replace kcl and hold diuretics rocephin for uti. PT eval. IKER At baseline patient has CKD stage 3 on admission BUN 32, creatinine 2.33, GFR 21 -> (09/15) BUN 26, creatinine 2.04, GFR 24....cr 1.6 09/17 Abdomen/Pelvis CT 09/14/17 00:34 CONCLUSION: 1. Induration of the perinephric fat on the right side and mild prominence of the collecting system with 2 calcified stones in the mid to distal right ureter measuring 3 and 4 mm. 2. Stable left atrophic kidney. 3. Stable small fat-containing left inguinal hernia HTN cont current rx Hyperlipidemia continue patient's home medication including simvastatin 20 mg Po daily CAD no chest pain at this time s/p stent placement in 2000 continue simvastatin 20 mg PO daily aspirin 81 mg PO daily at this time depression continue home sertraline 100 mg PO daily
[2017-09-17] MEDS: Metoprolol Tartrate 25 MG Tablet PO SCH ×4 (10:56→17:30)
--- NOTE | 2017-09-17 14:32 | ECHRPT ---
Indication: ATRIAL FIB CONCLUSIONS The left ventricular systolic function is normal with an estimated ejection fraction in the range of 60-65%. Normal left ventricular size. Wall thickness is normal. No regional wall motion abnormalities are present. Mild thickening of the mitral valve leaflets. Mitral annular calcification is present. Trace mitral valve regurgitation. Aortic valve sclerosis is present. The pulmonary valve is not well visualized. BP: / HR: Rhythm: Sinus MEASUREMENTS (Male / Female) Normal Values Technical Quality:Excellent 2D ECHO LV Diastolic Diameter PLAX 4.6 cm 4.2 - 5.9 / 3.9 - 5.3 cm LV Systolic Diameter PLAX 3.2 cm IVS Diastolic Thickness 1.0 cm 0.6 - 1.0 / 0.6 - 0.9 cm LVPW Diastolic Thickness 0.9 cm 0.6 - 1.0 / 0.6 - 0.9 cm LV Relative Wall Thickness 0.4 RV Internal Dim ED PLAX 2.4 cm LVOT Diameter 1.9 cm LA Systolic Diameter LX 3.0 cm 3.0 - 4.0 / 2.7 - 3.8 cm LV Ejection Fraction MOD 4C 60.4 % LV Ejection Fraction 4C AL 60.7 % M-MODE Aortic Root Diameter MM 2.4 cm LA Systolic Diameter MM 3.3 cm LA Ao Ratio MM 1.4 AV Cusp Separation MM 1.9 cm DOPPLER AV Peak Velocity 119.0 cm/s AV Peak Gradient 5.7 mmHg LVOT Peak Velocity 109.0 cm/s LVOT Peak Gradient 4.8 mmHg AV Area Cont Eq pk 2.6 cm MV Area PHT 3.9 cm Mitral E Point Velocity 116.0 cm/s Mitral A Point Velocity 126.0 cm/s Mitral E to A Ratio 0.9 LV E' Lateral Velocity 7.5 cm/s Mitral E to LV E' Lateral Ratio 15.4 LV E' Septal Velocity 5.8 cm/s Mitral E to LV E' Septal Ratio 20.2 PV Peak Velocity 114.0 cm/s PV Peak Gradient 5.2 mmHg FINDINGS LEFT VENTRICLE The left ventricular systolic function is normal with an estimated ejection fraction in the range of 60-65%. Normal left ventricular size. Wall thickness is normal. No regional wall motion abnormalities are present. RIGHT VENTRICLE Normal right ventricular size and systolic function. LEFT ATRIUM The left atrial size is normal. RIGHT ATRIUM The right atrial size is normal. ATRIAL SEPTUM Normal atrial septal thickness without atrial level shunting by limited color doppler interrogation. AORTA The aortic root and proximal ascending aorta are normal in size on limited imaging. MITRAL VALVE Mild thickening of the mitral valve leaflets. Mitral annular calcification is present. Trace mitral valve regurgitation. AORTIC VALVE Trileaflet aortic valve. Aortic valve sclerosis is present. TRICUSPID VALVE Structurally normal tricuspid valve. No tricuspid valve stenosis or regurgitation. PULMONARY VALVE The pulmonary valve is not well visualized. VESSELS The inferior vena cava is normal in size. PERICARDIUM No pericardial effusion. Eros Curtis MD, FACC, [facility] [place] (Electronically Signed) Final Date:17 September 2017 14:31
[2017-09-18 05:15] LABS: Carbon Dioxide 29.5 meq/L (21.0-32.0); Potassium 3.5 meq/L (3.5-5.1)
[2017-09-18] MEDS: Aspirin 325 MG Tablet PO SCH (08:16)
[2017-09-18] MEDS: Metoprolol Tartrate 25 MG Tablet PO SCH ×3 (08:16→17:07)
[2017-09-18] MEDS: Sertraline 100 MG Tablet PO SCH (08:16)
[2017-09-18] MEDS: Senna/Docusate Sodium 8.6/50 MG Tablet PO SCH (08:16)
--- NOTE | 2017-09-18 09:32 | P.PNIM ---
Subjective Interval history: feels good. no complaints Physical Exam Vital signs: Vital Signs 09/17/17 10:00 09/17/17 10:35 09/17/17 11:00 Temperature 98.9 F Pulse Rate 86 87 87 Respiratory Rate 20 Blood Pressure 158/70 H Pulse Oximetry 95 09/17/17 11:49 09/17/17 12:00 09/17/17 13:00 Temperature Pulse Rate 80 79 72 Respiratory Rate 16 Blood Pressure Pulse Oximetry 09/17/17 14:00 09/17/17 15:00 09/17/17 15:33 Temperature 99.1 F Pulse Rate 73 90 72 Respiratory Rate 20 18 Blood Pressure 136/80 Pulse Oximetry 94 L 09/17/17 16:00 09/17/17 17:00 09/17/17 18:00 Temperature Pulse Rate 84 75 74 Respiratory Rate Blood Pressure Pulse Oximetry 09/17/17 19:00 09/17/17 20:00 09/17/17 20:55 Temperature 98.7 F Pulse Rate 70 70 74 Respiratory Rate 18 Blood Pressure 142/65 H Pulse Oximetry 98 97 09/17/17 21:00 09/17/17 22:00 09/17/17 23:00 Temperature 98.8 F Pulse Rate 70 72 77 Respiratory Rate Blood Pressure 150/68 H Pulse Oximetry 97 09/18/17 00:00 09/18/17 01:00 09/18/17 02:00 Temperature Pulse Rate 70 74 71 Respiratory Rate Blood Pressure Pulse Oximetry 09/18/17 03:00 09/18/17 04:00 09/18/17 05:00 Temperature 99.1 F Pulse Rate 80 80 82 Respiratory Rate Blood Pressure 163/70 H Pulse Oximetry 97 09/18/17 06:00 09/18/17 07:00 09/18/17 08:00 Temperature 99.0 F Pulse Rate 80 86 88 Respiratory Rate 18 Blood Pressure 171/76 H Pulse Oximetry 97 09/18/17 09:00 Temperature Pulse Rate 82 Respiratory Rate Blood Pressure Pulse Oximetry Intake & Output 09/17/17 09/18/17 09/18/17 18:59 06:59 18:59 Intake Total 1060 / 1060 720 / 720 Output Total 980 / 980 1100 / 1100 Balance 80 / 80 -380 / -380 Weight 77 kg Intake: IV 100 / 100 Rocephin Inj 1,000 MG In NS Inj 100 / 100 100 ML @ 200 mls/hr IV.SIG Q24H BEBETO Rx#:[id number] Oral 960 / 960 720 / 720 Output: Urine Amount (Catheter) 980 / 980 1100 / 1100 Indwelling Urethral Catheter 980 / 980 1100 / 1100 Other: Date of Last Bowel Movement 09/17/17 09/17/17 # Bowel Movements 1 # Incontinent Bowel Movements 1 heart reg lung cta abd s/nt ext no edema bates. yellow - Urinary Catheter Management Indwelling Urethral Catheter Cath placed during this visit: yes Reason for continuing: Hourly intake/output Insertion date: 09/16/17 Insertion time: 09:38 Results - Labs CBC & Chem 7: 09/16/17 05:37 09/18/17 03:42 Laboratory Results - last 24 hr 09/17/17 09/18/17 10:59 03:42 Sodium 140 Potassium 3.1 L 3.5 Chloride 103 Carbon Dioxide 29.5 Anion Gap 8 BUN 22 H Creatinine 1.53 H Estimated GFR 33 L Random Glucose 102 Calcium 9.0 Microbiology 09/14/17 13:00 Blood - Peripheral Aerobic Blood Culture - Preliminary No growth in 3 days 09/14/17 13:00 Blood - Peripheral Anaerobic Blood Culture - Preliminary No growth in 3 days 09/14/17 13:05 Blood - Peripheral Aerobic Blood Culture - Preliminary No growth in 3 days 09/14/17 13:05 Blood - Peripheral Anaerobic Blood Culture - Preliminary No growth in 3 days Assessment and Plan - Assessment (1) Acute pyelonephritis Code(s): N10 - Acute pyelonephritis Status: Acute Plan: This is a 71 year old female patient with a past medical history which includes 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 Patient presents to the ER with complaint of right flank pain for the last several hours. pyelonephritis. e. coli right nephrolithiasis Abdomen/Pelvis CT 09/14/17 00:34 CONCLUSION: 1. Induration of the perinephric fat on the right side and mild prominence of the collecting system with 2 calcified stones in the mid to distal right ureter measuring 3 and 4 mm. 2. Stable left atrophic kidney. 3. Stable small fat-containing left inguinal hernia -pt went for stent placement on 09/16. cancelled due to improved cr, sob/wheezing/ volume overloaded and afib/rvr. on 09/16 pt recieved dosing of iv and po cardizem/lopressor finally converting back to sinus rhythm covert dilt to cardizem cd and cont bb. ambulate and remove o2. if hr controlled then dc in AM remove bates will discuss anticoagulation with her pcp. It may just have been afib induced by the acute illness. no known hx afib. rocephin for uti. PT eval. will plan urology f/u. no stent planned. IKER At baseline patient has CKD stage 3 on admission BUN 32, creatinine 2.33, GFR 21 -> (09/15) BUN 26, creatinine 2.04, GFR 24....cr 1.6 09/17 Abdomen/Pelvis CT 09/14/17 00:34 CONCLUSION: 1. Induration of the perinephric fat on the right side and mild prominence of the collecting system with 2 calcified stones in the mid to distal right ureter measuring 3 and 4 mm. 2. Stable left atrophic kidney. 3. Stable small fat-containing left inguinal hernia HTN cont current rx Hyperlipidemia continue patient's home medication including simvastatin 20 mg Po daily CAD no chest pain at this time s/p stent placement in 2000 continue simvastatin 20 mg PO daily aspirin 81 mg PO daily at this time depression continue home sertraline 100 mg PO daily
[2017-09-18] MEDS: dilTIAZem CD 300 MG Capsule PO SCH (10:28)
[2017-09-18] MEDS ORDERED: Temazepam 15 MG Capsule PO PRN (21:17)
[2017-09-19] MEDS ORDERED: dilTIAZem Inj 125 MG in Sodium Chlor 0.9% Inj 100 ML IV.CONT PRN (02:30)
[2017-09-19] MEDS: Senna/Docusate Sodium 8.6/50 MG Tablet PO SCH ×3 (08:00→20:46)
[2017-09-19] MEDS: dilTIAZem CD 300 MG Capsule PO SCH (08:46)
[2017-09-19] MEDS: Aspirin 325 MG Tablet PO SCH (08:46)
[2017-09-19] MEDS: Metoprolol Tartrate 25 MG Tablet PO SCH (08:46)
[2017-09-19] MEDS: Sertraline 100 MG Tablet PO SCH (08:46)
[2017-09-19] MEDS ORDERED: Metoprolol Tartrate 25 MG Tablet PO ONE (09:00)
--- NOTE | 2017-09-19 09:18 | P.PNIM ---
Subjective Interval history: pt had breakthrough afib/rvr overnight and back on cardizem gtt. she acknowledges hx afib for many yrs and not on any anticoagulation. Physical Exam Vital signs: Vital Signs 09/18/17 10:00 09/18/17 11:00 09/18/17 12:00 Temperature 98.9 F Pulse Rate 73 78 76 Respiratory Rate 18 Blood Pressure 153/69 H Pulse Oximetry 93 L 09/18/17 13:00 09/18/17 14:00 09/18/17 15:00 Temperature 98.5 F Pulse Rate 72 79 76 Respiratory Rate 18 Blood Pressure 158/82 H Pulse Oximetry 94 L 09/18/17 15:36 09/18/17 16:00 09/18/17 17:00 Temperature Pulse Rate 76 79 81 Respiratory Rate 18 Blood Pressure Pulse Oximetry 94 L 09/18/17 18:00 09/18/17 19:00 09/18/17 19:41 Temperature 98.9 F Pulse Rate 74 79 79 Respiratory Rate 18 17 Blood Pressure 181/72 H Pulse Oximetry 89 L 89 L 09/18/17 20:00 09/18/17 22:00 09/18/17 23:00 Temperature 98.9 F Pulse Rate 74 76 77 Respiratory Rate 18 Blood Pressure 183/81 H Pulse Oximetry 95 09/18/17 23:57 09/19/17 00:00 09/19/17 01:00 Temperature Pulse Rate 78 88 86 Respiratory Rate 16 Blood Pressure Pulse Oximetry 09/19/17 02:00 09/19/17 02:24 09/19/17 02:29 Temperature 98.7 F Pulse Rate 120 H 135 H 89 Respiratory Rate 20 18 Blood Pressure 163/77 H 141/65 H Pulse Oximetry 95 09/19/17 03:00 09/19/17 07:00 09/19/17 07:34 Temperature 98.7 F Pulse Rate 86 79 79 Respiratory Rate 18 16 Blood Pressure 182/72 H Pulse Oximetry 95 96 96 09/19/17 09:00 Temperature Pulse Rate 86 Respiratory Rate Blood Pressure Pulse Oximetry Intake & Output 09/18/17 09/19/17 09/19/17 18:59 06:59 18:59 Intake Total 920 / 920 240 / 240 Output Total 700 / 700 600 / 600 Balance 220 / 220 -360 / -360 Weight 77 kg Intake: Oral 920 / 920 240 / 240 Output: Urine 700 / 700 600 / 600 Other: Date of Last Bowel Movement 09/18/17 09/18/17 # Bowel Movements 1 heart reg lung cta abd s/nt ext no edema - Urinary Catheter Management Indwelling Urethral Catheter Cath placed during this visit: yes, but has since been removed by the nurse Reason for continuing: Not indwelling catheter Insertion date: 09/16/17 Insertion time: 09:38 Removal date: 09/18/17 Removal time: 11:23 Results - Labs CBC & Chem 7: 09/16/17 05:37 09/18/17 03:42 Microbiology 09/14/17 13:00 Blood - Peripheral Aerobic Blood Culture - Preliminary No growth in 4 days 09/14/17 13:00 Blood - Peripheral Anaerobic Blood Culture - Preliminary No growth in 4 days 09/14/17 13:05 Blood - Peripheral Aerobic Blood Culture - Preliminary No growth in 4 days 09/14/17 13:05 Blood - Peripheral Anaerobic Blood Culture - Preliminary No growth in 4 days Assessment and Plan - Assessment (1) Acute pyelonephritis Code(s): N10 - Acute pyelonephritis Status: Acute Plan: This is a 71 year old female patient with a past medical history which includes 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 Patient presents to the ER with complaint of right flank pain for the last several hours. pyelonephritis. e. coli right nephrolithiasis Abdomen/Pelvis CT 09/14/17 00:34 CONCLUSION: 1. Induration of the perinephric fat on the right side and mild prominence of the collecting system with 2 calcified stones in the mid to distal right ureter measuring 3 and 4 mm. 2. Stable left atrophic kidney. 3. Stable small fat-containing left inguinal hernia -pt went for stent placement on 09/16. cancelled due to improved cr, sob/wheezing/ volume overloaded and afib/rvr. on 09/16 pt recieved dosing of iv and po cardizem/lopressor finally converting back to sinus rhythm Pt says she has had afib for many yrs. more afib/rvr overnight and on gtt now. will adjust cardizem to 180mg bid and metoprolol to 50mg bid and stop gtt...resume as needed. will discuss anticoagulation with her pcp. pt has not been on in past per her hx. convert to cipro PT eval. will plan urology f/u. no stent planned. IKER At baseline patient has CKD stage 3 on admission BUN 32, creatinine 2.33, GFR 21 -> (09/15) BUN 26, creatinine 2.04, GFR 24....cr 1.6 09/17 Abdomen/Pelvis CT 09/14/17 00:34 CONCLUSION: 1. Induration of the perinephric fat on the right side and mild prominence of the collecting system with 2 calcified stones in the mid to distal right ureter measuring 3 and 4 mm. 2. Stable left atrophic kidney. 3. Stable small fat-containing left inguinal hernia HTN cont current rx Hyperlipidemia continue patient's home medication including simvastatin 20 mg Po daily CAD no chest pain at this time s/p stent placement in 2000 continue simvastatin 20 mg PO daily aspirin 81 mg PO daily at this time depression continue home sertraline 100 mg PO daily
[2017-09-19] MEDS: Ciprofloxacin 250 MG Tablet PO SCH ×2 (09:24→20:45)
[2017-09-19] MEDS: Metoprolol Tartrate 50 MG Tablet PO SCH (20:44)
[2017-09-19] MEDS: dilTIAZem CD 180 MG Capsule PO SCH (20:44)
[2017-09-19 22:30] VITALS: O2SAT 97
[2017-09-20 05:07] LABS: Calcium 8.7 mg/dL (8.5-10.1); Carbon Dioxide 30.3 meq/L (21.0-32.0); Potassium 3.7 meq/L (3.5-5.1)
[2017-09-20] MEDS: Sertraline 100 MG Tablet PO SCH (08:02)
[2017-09-20] MEDS: Aspirin 325 MG Tablet PO SCH (08:02)
[2017-09-20] MEDS: Metoprolol Tartrate 50 MG Tablet PO SCH (08:02)
[2017-09-20] MEDS: Ciprofloxacin 250 MG Tablet PO SCH (08:02)
[2017-09-20] MEDS: dilTIAZem CD 180 MG Capsule PO SCH (08:03)
[2017-09-20] MEDS: Senna/Docusate Sodium 8.6/50 MG Tablet PO SCH (08:03)
[2017-09-20 08:54] VITALS: BP 187/78; RESP 16; TEMP 98.6
[2017-09-20 09:35] VITALS: PULSE 62
--- NOTE | 2017-09-20 09:57 | P.PNIM ---
Subjective Interval history: eager for dc no sob. no palpation. in sinus. Physical Exam Vital signs: Vital Signs 09/19/17 10:00 09/19/17 11:00 09/19/17 12:00 Temperature 98.8 F Pulse Rate 74 68 65 Respiratory Rate 18 Blood Pressure 161/70 H Pulse Oximetry 96 09/19/17 13:00 09/19/17 14:00 09/19/17 15:00 Temperature 98.4 F Pulse Rate 69 66 68 Respiratory Rate 18 Blood Pressure 146/65 H Pulse Oximetry 95 09/19/17 16:00 09/19/17 17:00 09/19/17 18:00 Temperature Pulse Rate 83 75 69 Respiratory Rate Blood Pressure Pulse Oximetry 09/19/17 19:00 09/19/17 19:48 09/19/17 20:00 Temperature 99.1 F Pulse Rate 72 72 68 Respiratory Rate 20 Blood Pressure 206/77 H Pulse Oximetry 97 97 09/19/17 21:00 09/19/17 22:00 09/19/17 23:00 Temperature Pulse Rate 70 83 67 Respiratory Rate Blood Pressure Pulse Oximetry 97 09/19/17 23:26 09/20/17 00:00 09/20/17 01:00 Temperature 98.8 F Pulse Rate 69 62 68 Respiratory Rate 20 Blood Pressure 182/80 H Pulse Oximetry 97 09/20/17 02:00 09/20/17 03:00 09/20/17 04:00 Temperature 98.8 F Pulse Rate 66 66 64 Respiratory Rate 20 Blood Pressure 170/94 H Pulse Oximetry 97 09/20/17 05:00 09/20/17 06:00 09/20/17 07:00 Temperature 98.6 F Pulse Rate 65 65 75 Respiratory Rate 16 Blood Pressure 187/78 H Pulse Oximetry 97 09/20/17 08:00 09/20/17 08:58 09/20/17 09:34 Temperature Pulse Rate 67 66 62 Respiratory Rate Blood Pressure Pulse Oximetry Intake & Output 09/19/17 09/20/17 09/20/17 18:59 06:59 18:59 Intake Total 1085 / 1085 480 / 480 Output Total 750 / 750 1200 / 1200 Balance 335 / 335 -720 / -720 Weight 76.5 kg Intake: IV 125 / 125 Cardizem Inj 125 MG In NS Inj 125 / 125 100 ML @ 5 MG/HR 5 mls/hr IV. CONT TITRATE PRN Rx#:[id number] Oral 960 / 960 480 / 480 Output: Urine 750 / 750 1200 / 1200 Other: Date of Last Bowel Movement 09/18/17 heart reg lung cta abd s/nt ext no edema - Urinary Catheter Management Indwelling Urethral Catheter Cath placed during this visit: yes, but has since been removed by the nurse Reason for continuing: Not indwelling catheter Insertion date: 09/16/17 Insertion time: 09:38 Removal date: 09/18/17 Removal time: 11:23 Results - Labs CBC & Chem 7: 09/16/17 05:37 09/20/17 03:12 Laboratory Results - last 24 hr 09/20/17 03:12 Sodium 141 Potassium 3.7 Chloride 103 Carbon Dioxide 30.3 Anion Gap 8 BUN 20 H Creatinine 1.36 H Estimated GFR 38 L Random Glucose 96 Calcium 8.7 Microbiology 09/14/17 13:00 Blood - Peripheral Aerobic Blood Culture - Final No growth in 5 days 09/14/17 13:00 Blood - Peripheral Anaerobic Blood Culture - Final No growth in 5 days 09/14/17 13:05 Blood - Peripheral Aerobic Blood Culture - Final No growth in 5 days 09/14/17 13:05 Blood - Peripheral Anaerobic Blood Culture - Final No growth in 5 days Assessment and Plan - Assessment (1) Acute pyelonephritis Code(s): N10 - Acute pyelonephritis Status: Acute Plan: This is a 71 year old female patient with a past medical history which includes 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 Patient presents to the ER with complaint of right flank pain for the last several hours. pyelonephritis. e. coli right nephrolithiasis Abdomen/Pelvis CT 09/14/17 00:34 CONCLUSION: 1. Induration of the perinephric fat on the right side and mild prominence of the collecting system with 2 calcified stones in the mid to distal right ureter measuring 3 and 4 mm. 2. Stable left atrophic kidney. 3. Stable small fat-containing left inguinal hernia -pt went for stent placement on 09/16. cancelled due to improved cr, sob/wheezing/ volume overloaded and afib/rvr. on 09/16 pt recieved dosing of iv and po cardizem/lopressor finally converting back to sinus rhythm Pt says she has had afib for many yrs. had alot of breakthrough rvr over past several days. adjusted cardizem to 180mg bid and metoprolol to 50mg bid and stop gtt...resume as needed. will discuss anticoagulation with her pcp. pt has not been on in past per her hx. converted to cipro PT eval. will plan urology f/u. no stent planned. hr stable pt wants to go home. will dc and call pcp to decide on anticoagulation. IKER At baseline patient has CKD stage 3 on admission BUN 32, creatinine 2.33, GFR 21 -> (09/15) BUN 26, creatinine 2.04, GFR 24....cr 1.6 09/17 Abdomen/Pelvis CT 09/14/17 00:34 CONCLUSION: 1. Induration of the perinephric fat on the right side and mild prominence of the collecting system with 2 calcified stones in the mid to distal right ureter measuring 3 and 4 mm. 2. Stable left atrophic kidney. 3. Stable small fat-containing left inguinal hernia HTN cont current rx Hyperlipidemia continue patient's home medication including simvastatin 20 mg Po daily CAD no chest pain at this time s/p stent placement in 2000 continue simvastatin 20 mg PO daily aspirin 81 mg PO daily at this time depression continue home sertraline 100 mg PO daily
--- NOTE | 2017-09-20 10:10 | P.DCO ---
- Physical Therapy Order: Evaluate and treat, Improve ambulation - Home Health Nursing Order: Medical education, Signs/symptoms of disease process, Medication education-adverse effect, Nursing assessment with vital signs - Certification I have seen patient Gillian Wright on 09/20/17. My clinical findings support the need for the requested home health care services because: Need for psychosocial assistance I certify that my clinical findings support that this patient is homebound because: Need for psychosocial assistance
--- NOTE | 2017-09-26 09:18 | P.DS ---
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 Patient presents to the ER with complaint of right flank pain for the last several hours. She states that several days ago she had some intermittent right flank pain and started to have hematuria, which resolved. Then yesterday the flank pain began with more intensity and has "not let up." She has also had nausea and nonbilious, nonbloody emesis. The pain is not associated with meals or positions. Pain does not change with movement. She denies constipation, diarrhea or fevers but does admit to some chills. This pain has never happened before. Abdomen/Pelvis CT 09/14/17 00:34 CONCLUSION: 1. Induration of the perinephric fat on the right side and mild prominence of the collecting system with 2 calcified stones in the mid to distal right ureter measuring 3 and 4 mm. 2. Stable left atrophic kidney. 3. Stable small fat-containing left inguinal hernia PAST MEDICAL HISTORY: Adenocarcinoma of the Right upper lobe of the lung (pT2a pN1 M0; Stage IIa. Right upper lobectomy performed on 08/15/2016.) Arthritis Coronary Artery Disease Coronary Stent Depression High Cholesterol Hypertension PAST SURGICAL HISTORY: Breast biopsy CT guided biopsy of RUL lung mass Hysterectomy, Complete Left carotid surgery Tubal ligation Colonoscopy in 2013 Intracoronary stent placement in 2005 FAMILY MEDICAL HISTORY: three brothers with CAD SOCIAL HISTORY: denies ETOH use former tobacco use quit 2017 denies illicit drug use DS: Diagnosis - Discharge Diagnosis (1) Acute pyelonephritis Status: Acute DS: Medications - Discharge Medications Prescriptions: apixaban [Eliquis] 5 mg PO BID #60 tab ciprofloxacin HCl 250 mg PO Q12HR 7 Days tab diltiazem HCl [Cardizem CD] 180 mg PO BID 30 Days #60 cap metoprolol tartrate 50 mg PO BID 30 Days #60 tab DS: Summary Hospital Course: (1) Acute pyelonephritis This is a 71 year old female patient with a past medical history which includes 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 Patient presents to the ER with complaint of right flank pain for the last several hours. pyelonephritis. e. coli right nephrolithiasis Abdomen/Pelvis CT 09/14/17 00:34 CONCLUSION: 1. Induration of the perinephric fat on the right side and mild prominence of the collecting system with 2 calcified stones in the mid to distal right ureter measuring 3 and 4 mm. 2. Stable left atrophic kidney. 3. Stable small fat-containing left inguinal hernia -pt went for stent placement on 09/16. cancelled due to improved cr, sob/wheezing/ volume overloaded and afib/rvr. on 09/16 pt recieved dosing of iv and po cardizem/lopressor finally converting back to sinus rhythm Pt says she has had afib for many yrs. more afib/rvr overnight and on gtt now. will adjust cardizem to 180mg bid and metoprolol to 50mg bid and stop gtt...resume as needed. will discuss anticoagulation with her pcp. pt has not been on in past per her hx. convert to cipro PT eval. will plan urology f/u. no stent planned. addendum: spoke with pcp. will sent pt home on eliquis, cardizem 180mg bid and metoprolol 50mg bid and f/u. [facility] At baseline patient has CKD stage 3 on admission BUN 32, creatinine 2.33, GFR 21 -> (09/15) BUN 26, creatinine 2.04, GFR 24....cr 1.6 09/17 Abdomen/Pelvis CT 09/14/17 00:34 CONCLUSION: 1. Induration of the perinephric fat on the right side and mild prominence of the collecting system with 2 calcified stones in the mid to distal right ureter measuring 3 and 4 mm. 2. Stable left atrophic kidney. 3. Stable small fat-containing left inguinal hernia HTN cont current rx Hyperlipidemia continue patient's home medication including simvastatin 20 mg Po daily CAD no chest pain at this time s/p stent placement in 2000 continue simvastatin 20 mg PO daily aspirin 81 mg PO daily at this time depression continue home sertraline 100 mg PO daily - Time Spent with Patient Total time spent providing and/or coordinating discharge services: Greater than 30 minutes - Quality: VTE Deep Vein Thrombosis/Pulmonary Embolism Present on Admission: No Exam Vital signs: heart reg lung cta abd s/nt ext no edema Results Procedures completed during hospitalization: none - Impressions ITS Impressions Abdomen/Pelvis CT 09/14/17 00:34 CONCLUSION: 1. Induration of the perinephric fat on the right side and mild prominence of the collecting system with 2 calcified stones in the mid to distal right ureter measuring 3 and 4 mm. 2. Stable left atrophic kidney. 3. Stable small fat-containing left inguinal hernia. Chest X-Ray 09/16/17 00:00 CONCLUSION: Basilar density increased from September 14. Differential diagnosis includes atelectasis, or early infiltrate on the left. Discharge Plan - Discharge Disposition Patient Disposition: W/Home Health Service - Discharge Condition Condition: Stable - Discharge Order Discharge Orders: Discharge Order (Routine); Ordered 09/20/17 Ordered By: Francisco Sheridan - Discharge Details Anticipated Discharge Date: 09/20/17 Discharge Comment: nc home today - Physicians Team Primary Care Provider: Maco Lynch Attending Provider: Kurtis Taylor Other Providers: Jeff Urrutia DO ; [facility]
== END 2017-09-20 12:22 | disposition home health service (06) ==
LOC: NEPC 22:01 → NEDA 09-14 02:16 → N06 09-14 03:10 → HCPC 09-16 09:33
PROVIDERS: ADMIT Hospitalist; ATTEND Hospitalist